=== PATIENT | female | born 1955 | race Caucasian/White ===

== ENCOUNTER 2019-10-15 14:41 | Inpatient (IN) | payer OTHER, MEDICARE ==
[~2019-10-15] VITALS: Ht 158 cm; Wt 75.0 kg
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
[2019-10-15 15:00] VITALS: BP 129/81
[2019-10-15] MEDS ORDERED: ONDANSETRON 4 MG (ZOFRAN) ORAL DISSOLVE TAB PO PRN (15:00)
[2019-10-15] MEDS ORDERED: MELATONIN 3 MG TABLET PO PRN (15:00)
[2019-10-15] MEDS ORDERED: DOCUSATE SODIUM 100 MG (COLACE) CAP PO PRN (15:00)
[2019-10-15] MEDS ORDERED: diphenhydrAMINE 25 MG TAB (BENADRYL) PO PRN (15:00)
[2019-10-15] MEDS ORDERED: CALCIUM CARBONATE 500 MG (TUMS) TAB.CHEW PO PRN (15:00)
[2019-10-15] MEDS ORDERED: FLEET ENEMA ADULT 1 EA BTL PR PRN (15:00)
[2019-10-15] MEDS ORDERED: BISACODYL 10 MG SUPP (DULCOLAX) PR PRN (15:00)
[2019-10-15] MEDS ORDERED: guaiFENesin/CODEINE (ROBITUSSIN AC) 10ML UDC PO PRN (15:00)
[2019-10-15] MEDS ORDERED: ALPRAZolam 0.25 MG (XANAX) TAB PO PRN (15:00)
[2019-10-15] MEDS ORDERED: ACETAMINOPHEN 500 MG TAB (TYLENOL) PO PRN (15:00)
[2019-10-15] MEDS ORDERED: LACTULOSE SYRUP 10GM/15ML (ENULOSE) 30ML UDC PO PRN (15:00)
[2019-10-15] MEDS ORDERED: ACETAMINOPHEN 325 MG TABLET PO PRN (15:15)
[2019-10-15] MEDS ORDERED: RIZA10TA37 PO (15:21)
[2019-10-15] MEDS ORDERED: PARO10TA3 PO (15:21)
[2019-10-15] MEDS ORDERED: OMEP20CA18 PO (15:21)
[2019-10-15] MEDS ORDERED: OXYC5TAB96 PO (15:21)
[2019-10-15] MEDS ORDERED: OXYB5TAB13 PO (15:21)
[2019-10-15] MEDS ORDERED: MONT10TA26 PO (15:21)
[2019-10-15] MEDS ORDERED: ASPI-983 PO (15:21)
[2019-10-15] MEDS ORDERED: CELE-63 PO (15:21)
[2019-10-15] MEDS ORDERED: GABA300C PO (15:21)
[2019-10-15] MEDS ORDERED: SENN-145 PO (15:21)
[2019-10-15] MEDS ORDERED: LISI-556 PO (15:21)
[2019-10-15] MEDS ORDERED: ACET325C7 PO (15:21)
[2019-10-15] MEDS ORDERED: PRAV20TA3 PO (15:21)
[2019-10-15] MEDS ORDERED: RT-ALBUINH IH (15:21)
[2019-10-15] MEDS ORDERED: METO50TA7 PO (15:42)
[2019-10-15] MEDS ORDERED: VALA500T7 PO (15:42)
--- NOTE | 2019-10-15 15:43 | NUR ---
I ENTERED THE MED REC USING THE DISCHARGE ORDERS FROM [facility]- ON THE DISCHARGE ORDER UNDER THE SECTION THAT SAYS "MEDICATION PRIOR TO ADMISSION" IT LISTS METOPROLOL TART 50MG HOWEVER THE PT GETS METOPROLOL ER SUCC 50MG FROM MAIL ORDER [facility]. THERE IS NO MENTION ON THE DISCHARGE ABOUT CHANGING METOPROLOL AND FOR THIS REASON I WILL PUT THE METOPROLOL SUCC ON THE MED REC AFTER THE MEDICATIONS HAVE BEEN CONTINUED I WILL SPEAK WITH THE PT AND UPDATE THE MED REC/NOTES NEEDED FILL DATES FROM [facility] MAIL ORDER: 05-25-2019 OXYBUTYNIN 5MG #180/90DS 05-25-2019 ALBUTEROL HFA #3 05-25-2019 GABAPENTIN 300MG #180/90DS 05-25-2019 RIZATRIPTAN 10MG #36 08-10-2019 LISINOPRIL 5MG #90/90DS 08-10-2019 OMEPRAZOLE 20MG #90/90DS 08-10-2019 PRAVASTATIN 20MG #90/90DS 08-27-2019 CELEBREX 200MG #90/90DS 08-27-2019 METOPROLOL SUCC 50MG #90/90DS 08-27-2019 MONTELUKAST 10MG #90/90DS 08-27-2019 PAROXETINE 10MG #90/90DS 08-27-2019 VALTREX 500MG #36/90DS PT WAS NOT AVAILABLE TO SPEAK WITH WHEN THE MED REC WAS ENTERED- FOR THIS REASON I DO NOT HAVE SPECIFIC DAYS THAT SHE TAKES VALTREX 500MG (THE PRESCRIPTION AND DISCHARGE ORDERS BOTH SAYS 3 TIMES WEEKLY). I WILL FOLLOW UP WITH THE PT TOMORROW AND UPDATE DIRECTIONS Addendum: 10/22/19 at 1450 by NIK KNIGHT CPhT I WAS ABLE TO SPEAK WITH THE PT TODAY TO COMPLETE THE MED REC TO WHAT THE PT WAS TAKING BEFORE [facility] THE FOLLOWING MEDICATIONS HAVE BEEN REMOVED DUE TO PT NOT TAKING BEFORE [facility]: SENNA S OXYCODONE 5MG MEDICATIONS THAT HAVE BEEN ADDED DUE TO PT TAKING PRIOR TO [facility]: TUMS XTRA STENGTH BIOTIN THE FOLLOWING MEDICATIONS HAVE BEEN CHANGED: GABAPENTIN 300MG WAS LISTED 1 CAP BID HOWEVER THE PT TAKES 1 CAP HS MONTELUKAST 10MG, LISINOPRIL 5MG AND PRAVASTATIN 20MG ARE BOTH LISTED 1 TAB DAILY BUT PT TAKES HS OXYBUTYNIN 5MG IS LISTED 1 TAB BID NEEDED FOR SPASMS BUT PT SAYS THIS ISNT PRN PT CLARIFIED THAT VALTREX 500MG DOSES ARE ON MON,WED&SAT
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
[2019-10-15] MEDS ORDERED: RT-ALBUTEROL SULF 2.5 MG/3 ML PRE-MIX VIAL IH PRN (16:15)
[2019-10-15] MEDS ORDERED: NON-FORMULARY MEDICATION 1 EA EA (Rizatriptan Benzoate (Rizatriptan) 10 MG) PO PRN (16:15)
[2019-10-15] MEDS ORDERED: NON-FORMULARY MEDICATION 1 EA EA (Acetaminophen (Tylenol) 650 MG) PO SCH (16:15)
[2019-10-15 16:41] VITALS: BP 129/81
--- NOTE | 2019-10-15 16:42 | NUR ---
DR PHILIP HERE. NO NEW ORDERS
[2019-10-15] MEDS ORDERED: SUMAtriptan 50 MG (IMITREX) TAB PO PRN (16:45)
[2019-10-15 17:18] VITALS: BP 131/80
--- NOTE | 2019-10-15 17:42 | NUR ---
FOLLOW UP APPTS X 4 ENTERED IN [place]. COPIED FROM [facility] INSTRUCTIONS.
--- OUTSIDE RECORDS SUMMARY | 2019-10-15 17:52 | XMS REPORT | CCD ---
Author Author LUANNE RESENDIZ Organization Unknown Address [address] [place] [address] Care Team Providers Care Wood Finisher Apprentice Name Role Phone VAUGHN HERNANDEZ, JOSE Mendoza Attphys DELFINA PHYS, KHANG ER Prisurg S., JERICHO Rivers NASST S., ELAN NASST J., LAYNE NASST F., GRAY NASST B., KATHRYN NASST S., KELI NASST K., GAUTAM NASST S., JONATHAN Harkins NASST R., ROVERTO NASST F., DEEPAK NASST Allergies Allergy Code Allergy Type Reaction Status No Known Drug Allergies 0 Drug allergy Active Active Medications Medication Code Dose Units Frequency Rou te Modification Start Date/Time Outpatient lab 0 1 DRAW 04/13/2016 11:59 Prescription Detail Outpatient CBC, CRP & SED RA TE drawn on Apr- fax results to [phone]: LEFT SEPTIC ANKLE Keflex 500MG Oral Capsule 514765 1 TABLET FOUR TIMES A DAY BY MOUTH 04/13/2016 11:56 Prescription Detail 1 TABLET BY MOUTH FOUR TIME S A DAY CeleBREX 200MG Oral Capsule 687530 200 MILLIGR AMS TWO TIMES A DAY ORAL 04/13/2016 11:55 Prescription Detail 200 MILLIGRAMS ORAL TWO PORTIA ES A DAY Glucosamine/MSM Complex Oral Tablet [id number] 1 EACH DAILY ORAL 04/13/2016 11:55 Prescription Detail 1 EACH ORAL DAILY Centralia 5MG-325MG Oral Tablet 851317 1 TABLET NEEDED EVERY 4 HR BY MOUTH FOR PAIN 04/13/2016 11:55 Prescription Detail TAKE 1 TABLET BY MOUTH N EEDED EVERY 4 HR FOR PAIN Vitamin Oral Tablet 24068213580 1 E ACH DAILY ORAL 04/13/2016 11:55 Prescription Detail 1 EACH ORAL DAILY Tums 500MG Oral Tablet, Chewable [id number] 500 MILLIGRAMS DAILY ORAL 04/13/2016 11:55 Prescription Detail 500 MILLIGRAMS ORAL DAILY Biotin 300 MCG Oral Tablet 984024 1 TABLET DAILY BY MOUTH 04/13/2016 11:54 Prescription Detail 1 TABLET BY MOUTH DAILY Metoprolol Tartrate 50MG Oral Tablet 037633 50 MILLIGRAMS DAILY BY MOUTH 04/13/2016 11:54 Prescription Detail 50 MILLIGRAMS BY MOUTH TAMANNA Y valACYclovir HCl 500MG Oral Tablet 318212 500 MILLIGRAMS MON, SAT, FRI BY MOUTH 04/13/2016 1 1:54 Prescription Detail 500 MILLIGRAMS BY MOUTH MON , SAT, SAT Aspirin 325MG Oral Tablet, Enteric Coated 653173 325 MILLIGRAMS TWO TIMES A DAY BY MOUTH 11:53 Prescription Detail 325 MILLIGRAMS BY MOUTH TWO TIMES A DAY Gabapentin 400MG Oral Capsule 284316 400 MARIELY GRAMS THREE TIMES A DAY BY MOUTH 04/13/2016 11:53 Prescription Detail 400 MILLIGRAMS BY MOUTH THR EE TIMES A DAY Lisinopril 5MG Oral Tablet 637190 5 MILLIGRA MS DAILY BY MOUTH 04/13/2016 11:53 Prescription Detail 5 MILLIGRAMS BY MOUTH DAILY Premarin 0.625MG Oral Tablet 808490 1.25 MILLIG CHELSIE MON, SAT, SAT BY MOUTH 04/13/2016 11:53 Prescription Detail 1.25 MILLIGRAMS BY MOUTH MO N, SAT, FRI Acetaminophen 325MG Oral Tablet 233417 650 MIL LIGRAMS NEEDED EVERY 4 HR BY MOUTH 04/13/2016 11:52 Prescription Detail 650 MILLIGRAMS BY MOUTH NEEDED EVERY 4 HR Problems Problem Code Start Date Resolved Date Sta s Septic arthritis 86381946 04/11/2016 Active Osteomyelitis 68170238 04/11/2016 Ac tive Procedures Procedure Code Procedure Type Date Drainage of Left Ankle Joint, Percutaneous Approach, D iagnostic [id number] ICD-10 PCS 04/11/2016 PT THERAPEUTIC EXERCISES [address] 04/13/2016 MRI LOWER EXTREMITY ANY JOINT W/WO CONTR 871213619 S NOMED CT 04/12/2016 SED RATE 507704666 SNOMED CT 04/13/2016 C REACTIVE PROTEIN 11078773 SNOMED CT 017 CBC W/ AUTO DIFF (RFLX MAN DIFF IF IND) 0693237 SN OMED CT 04/13/2016 BASIC METABOLIC PANEL 601600923 SNOMED CT 09/2016 BASIC METABOLIC PANEL 816636770 SNOMED CT 08/2016 CBC W/ AUTO DIFF (RFLX MAN DIFF IF IND) 0699955 SN OMED CT 04/12/2016 VANCOMYCIN TROUGH 228775589 SNOMED CT 04/13/19 [address] 04/12/2016 CRYSTAL EXAMINATION 529818466 SNOMED CT 2016 CULTURE WOUND 749250515 SNOMED CT 04/11/2016 CELL COUNT MISC FLUID 25202683 SNOMED CT 07/2016 SED RATE 970313896 SNOMED CT 04/11/2016 C REACTIVE PROTEIN 59558086 SNOMED CT 017 COMPREHENSIVE METABOLIC PANEL 697292955 SNOMED CT 04/11/2016 CBC W/ AUTO DIFF (RFLX MAN DIFF IF IND) 9086803 SN OMED CT 04/11/2016 PT THERAPEUTIC EXERCISES [address] 04/12/2016 PT GAIT TRAINING/STAIRS EA 15 MIN 96835364 SNOMED C T 04/12/2016 PT THERAPEUTIC EXERCISES [address] 04/12/2016 PT GAIT TRAINING/STAIRS EA 15 MIN 94205753 SNOMED C T 04/12/2016 PT EVALUATION; LOW 130620300 SNOMED CT 017 ^CULT ANAEROBIC 511757398 SNOMED CT 04/11/2016 ^CBC W/AUTO DIFF 8810632 SNOMED CT 7 ^CBC W/AUTO DIFF 0131366 SNOMED CT 7 ^CBC W/AUTO DIFF 8126720 SNOMED CT 7 Results BASIC METABOLIC PANEL - Collect Date/Portia e: 04/13/2016 07:30 Test Name Code Test Result Test Units Fernanda t Ref Range GLUCOSE 2345-7 99 MG/DL L=70 H=1 00 SODIUM 2951-2 141 MEQ/L L=135 H=14 8 POTASSIUM 2823-3 4.6 MEQ/L L=3.5 H =5.3 CHLORIDE 2075-0 108 MEQ/L L=96 H= 110 CO2 2028-9 24 MEQ/L L=22 H=29 BUN 3094-0 18 MG/DL L=8 H=22 CREATININE 2160-0 1.1 MG/DL L=0.6 H=1.6 CALCIUM 16744-7 9.1 MG/DL L=8.2 H= 10.6 AGE 67[birth year]-3 60 yrs GFR NonAA 01813-1 50 GFR AA 65819-1 61 eGFR 32514-4 50 mL/min/1.7 eGFR AA* 18904-3 >60 N/A BASIC METABOLIC PANEL - Collect Date/Portia e: 04/12/2016 06:15 Test Name Code Test Result Test Units Fernanda t Ref Range GLUCOSE 2345-7 100 MG/DL L=70 H=1 00 SODIUM 2951-2 141 MEQ/L L=135 H=14 8 POTASSIUM 2823-3 4.3 MEQ/L L=3.5 H =5.3 CHLORIDE 2075-0 107 MEQ/L L=96 H= 110 CO2 2028-9 24 MEQ/L L=22 H=29 BUN 3094-0 19 MG/DL L=8 H=22 CREATININE 2160-0 1.0 MG/DL L=0.6 H=1.6 CALCIUM 54323-5 9.0 MG/DL L=8.2 H= 10.6 AGE 36084-8 60 yrs GFR NonAA 11986-4 56 GFR AA 02882-4 68 eGFR 26625-5 56 mL/min/1.7 eGFR AA* 54054-5 >60 N/A COMPREHENSIVE METABOLIC PANEL - Collect Date/Time: 04/11/2016 15:50 Test Name Code Test Result Test Units Fernanda t Ref Range GLUCOSE 2345-7 104 MG/DL L=70 H=1 00 SODIUM 2951-2 140 MEQ/L L=135 H=14 8 POTASSIUM 2823-3 4.3 MEQ/L L=3.5 H =5.3 CHLORIDE 2075-0 102 MEQ/L L=96 H= 110 CO2 2028-9 28 MEQ/L L=22 H=29 BUN 3094-0 13 MG/DL L=8 H=22 CREATININE 2160-0 1.0 MG/DL L=0.6 H=1.6 SGOT/AST 1920-8 17 IU/L L=10 H= 40 SGPT/ALT 1742-6 15 IU/L L=8 H= 54 ALK PHOS 6768-6 99 IU/L L=35 H= 115 TOTAL PROTEIN 2885-2 7.7 G/DL L=5.5 H=8.5 ALBUMIN 1751-7 3.9 G/DL L=3.1 H=5 .4 TOTAL BILI 1975-2 0.4 MG/DL L=0.0 H=1.5 CALCIUM 02908-4 10.1 MG/DL L=8.2 H= 10.6 AGE 60 yrs GFR NonAA 56 GFR AA 68 eGFR 56 mL/min/1.7 eGFR AA* >60 N/A GENTAMICIN - Collect Date/Time: 04/12/19 17 02:40 Test Name Code Test Result Test Units Fernanda t Ref Range GENTAMICIN 19663-9 3.7 UG/ML VANCOMYCIN TROUGH - Collect Date/Time: 0 04/13/2016 07:30 Test Name Code Test Result Test Units Fernanda t Ref Range VANC TROUGH 4092-3 15.8 UG/ML L=10.0 H=20.0 CBC W/ AUTO DIFF (RFLX MAN DIFF IF IND) - Collect Date/Time: 04/13/2016 07:30 Test Name Code Test Result Test Units Fernanda t Ref Range WBC 62637-2 7.2 TH/CMM L=4.5 H=1 0.8 RBC 789-8 3.88 ML/CMM L=4.20 H=5. 40 HGB 718-7 12.5 G/DL L=12.0 H=16 .0 HCT 4544-3 37.5 % L=37.0 H=47 .0 MCV 66873-8 97 FL L=81 H=9 9 MCH 27397-9 32.2 PG L=27.0 H=3 3.0 MCHC 56664-3 33.3 G/DL L=31.0 H=3 6[place]0 [place] [address]-6 46 FL L=36 H=5 0 [place] [address]-3 12.8 % L=0.0 H=1 4.8 MPV 18351-8 10.4 FL L=9.3 H=1 2.5 PLT 777-3 251 TH/CMM L=130 H=44 0 NRBC# 66547-5 0.00 TH/CMM L=0.00 H=0 .00 NRBC% 33706-4 0.0 /100WBC L=0.0 H= 2.0 %NEUT 79366-0 62.5 % %LYMP 36229-7 22.7 % %MONO 26773-2 9.1 % %EOS 95475-7 4.7 % %BASO 55035-6 0.7 % #NEUT 22996-0 4.53 TH/CMM L=2.10 H=8 .20 #LYMP 04933-8 1.64 TH/CMM L=0.90 H=5 .20 #MONO 53226-1 0.66 TH/CMM L=0.16 H=1 .00 #EOS 47902-7 0.34 TH/CMM L=0.00 H=0 .80 #BASO 09742-8 0.05 TH/CMM L=0.00 H=0 .20 MANUAL DIFF 51967-3 NOT IND N/A CBC W/ AUTO DIFF (RFLX MAN DIFF IF IND) - Collect Date/Time: 04/12/2016 06:15 Test Name Code Test Result Test Units Fernanda t Ref Range WBC 54787-2 6.8 TH/CMM L=4.5 H=1 0.8 RBC 789-8 3.99 ML/CMM L=4.20 H=5. 40 HGB 718-7 12.8 G/DL L=12.0 H=16 .0 HCT 4544-3 38.9 % L=37.0 H=47 .0 MCV 58475-3 98 FL L=81 H=9 9 MCH 61510-0 32.1 PG L=27.0 H=3 3.0 MCHC 38869-6 32.9 G/DL L=31.0 H=3 6.0 [place] [address]-3 46 FL L=36 H=5 0 [place] [address]-7 12.9 % L=0.0 H=1 4.8 MPV 23338-1 10.3 FL L=9.3 H=1 2.5 PLT 777-3 245 TH/CMM L=130 H=44 0 NRBC# 24583-6 0.00 TH/CMM L=0.00 H=0 .00 NRBC% 94919-0 0.0 /100WBC L=0.0 H= 2.0 %NEUT 62804-5 54.9 % %LYMP 93391-1 26.8 % %MONO 60888-0 12.5 % %EOS 53484-7 4.4 % %BASO 62218-7 1.0 % #NEUT 90226-9 3.73 TH/CMM L=2.10 H=8 .20 #LYMP 13980-0 1.82 TH/CMM L=0.90 H=5 .20 #MONO 45534-1 0.85 TH/CMM L=0.16 H=1 .00 #EOS 89454-0 0.30 TH/CMM L=0.00 H=0 .80 #BASO 78654-0 0.07 TH/CMM L=0.00 H=0 .20 MANUAL DIFF 28509-8 NOT IND N/A CBC W/ AUTO DIFF (RFLX MAN DIFF IF IND) - Collect Date/Time: 04/11/2016 15:50 Test Name Code Test Result Test Units Fernanda t Ref Range WBC 09073-7 11.0 TH/CMM L=4.5 H=1 0.8 RBC 789-8 4.16 ML/CMM L=4.20 H=5. 40 HGB 718-7 13.6 G/DL L=12.0 H=16 .0 HCT 4544-3 40.8 % L=37.0 H=47 .0 MCV 98 FL L=81 H=99 MCH 32.7 PG L=27.0 H=33 .0 MCHC 33.3 G/DL L=31.0 H=36 .0 RDW SD 46 FL L=36 H=50 RDW CV 13.0 % L=0.0 H=14 .8 MPV 10.1 FL L=9.3 H=12 .5 PLT 777-3 272 TH/CMM L=130 H=44 0 NRBC# 0.00 TH/CMM L=0.00 H=0. 00 NRBC% 0.0 /100WBC L=0.0 H=2 .0 %NEUT 57.3 % %LYMP 28.6 % %MONO 11.5 % %EOS 1.5 % %BASO 0.7 % #NEUT 6.30 TH/CMM L=2.10 H=8. 20 #LYMP 3.15 TH/CMM L=0.90 H=5. 20 #MONO 1.26 TH/CMM L=0.16 H=1. 00 #EOS 0.17 TH/CMM L=0.00 H=0. 80 #BASO 0.08 TH/CMM L=0.00 H=0. 20 MANUAL DIFF NOT IND N/A SED RATE - Collect Date/Time: 04/13/2016 07:30 Test Name Code Test Result Test Units Fernanda t Ref Range SEDRATE 4537-7 35 MM/HR L=0 H=3 0 SED RATE - Collect Date/Time: 04/11/2016 15:50 Test Name Code Test Result Test Units Fernanda t Ref Range SEDRATE 4537-7 39 MM/HR L=0 H=3 0 C REACTIVE PROTEIN - Collect Date/Time: 04/13/2016 07:30 Test Name Code Test Result Test Units Fernanda t Ref Range C REACTIVE PROTEIN 1988-5 5.1 MG/DL L=0 .0 H=1.0 C REACTIVE PROTEIN - Collect Date/Time: 04/11/2016 15:50 Test Name Code Test Result Test Units Fernanda t Ref Range C REACTIVE PROTEIN 1988-5 13.4 MG/DL L=0 .0 H=1.0 Function Status Unknown or Not Available. History of Immunizations Immunization Code Date influenza, unspecified formulation 88 01/07/2016 Plan of Treatment Unknown or Not Available. Social History Smoking Status Code Start Date End Date Never smoker [id number] Vital Signs Vital Sign Value Unit Date/Time Recent/I nitial? Weight Measured 168.2 [lb_av] 04/11/2016 20:25 Initial VS Height 62 [in_i] 04/11/2016 20:25 Initi al VS BMI (Body Mass Index) 30.76 kg/m2 04/11/2016 20 :25 Initial VS BSA (Body Surface Area) 1.83 m2 04/11/2016 20:25 Initial VS BP Systolic 103 mm[Hg] 04/11/2016 20:25 Initial VS BP Diastolic 63 mm[Hg] 04/11/2016 20:25 Initial VS Respiratory Rate 18 /min 04/11/2016 20:25 Initial VS Heart Rate 97 /min 04/11/2016 20:25 I nitial VS O2 % BldC Oximetry 97 % 04/11/2016 20:25 Initial VS Body Temperature 98.5 [degF] 04/11/2016 20:25 Initial VS BP Systolic 129 mm[Hg] 04/13/2016 11:45 Most Recent VS BP Diastolic 66 mm[Hg] 04/13/2016 11:45 Most Recent VS Respiratory Rate 20 /min 04/13/2016 11:45 Most Recent VS Heart Rate 70 /min 04/13/2016 11:45 M ost Recent VS O2 % BldC Oximetry 100 % 04/13/2016 11:45 Most Recent VS Body Temperature 97.4 [degF] 04/13/2016 11:45 Most Recent VS Function Status Unknown or Not Available. Goals Unknown or Not Available. ASSESSMENTS Unknown or Not Available. Health Concerns Section Unknown or Not Available.
--- OUTSIDE RECORDS SUMMARY | 2019-10-15 17:52 | XMS REPORT ---
Author Author Megan Ontiveros Organization [employer] Address Unknown Phone Unavailable Care Team Providers Care Director Of Enterprise Strategy Name Role Phone Odell Ontiveros CP Unavailable Allergies No Known Allergies Problems Problem Type Condition ICD-9 Code Onset Dates Condition Statu s Problem Nonallopathic lesion of pelvic region, not elsewhere c lassified 739.5 Active Problem Nonallopathic lesion of lumbar region, not elsewhere c lassified 739.3 Active Problem Nonallopathic lesion of sacral region, not elsewhere c lassified 739.4 Active Problem Special screening for malignant neoplasms, colon V76.5 1 Active Problem Other screening mammogram V76.12 Ac tive Problem Nonallopathic lesion of rib cage, not elsewhere classi fied 739.8 Active Problem Nonallopathic lesion of thoracic region, not els ewhere classified 739.2 Active Problem Nonallopathic lesion of cervical region, not els ewhere classified 739.1 Active Problem Screening for lipoid disorders V77.91 Active Problem Lumbago 724.2 Active Problem Urinary tract infection, site not specified 599.0 Active Problem Unspecified essential hypertension 401.9 Active Problem Acute sinusitis, unspecified 461.9 Active Problem Spasm of muscle 728.85 Active Medications No Known Medications Results No Known Results Summary Purpose [employer] Submission
--- OUTSIDE RECORDS SUMMARY | 2019-10-15 17:52 | XMS REPORT ---
Author Megan Dunbar Organization [employer] Address Unknown Phone Unavailable Care Team Providers Care Science Job Titles Name Role Phone Odell Ontiveros CP Unavailable Allergies, Adverse Reactions, Alerts Substance Reaction Event Type N.K.D.A. 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 Active Problem Nonallopathic lesion of pelvic region, not elsewhere c lassified 739.5 Active Assessment Unspecified essential hypertension 401.9 Active Problem Nonallopathic lesion of sacral region, not elsewhere c lassified 739.4 Active Assessment Other seborrheic keratosis 702.19 A ctive Problem Nonallopathic lesion of lumbar region, not elsewhere c lassified 739.3 Active Problem Nonallopathic lesion of thoracic region, not els ewhere classified 739.2 Active Problem Nonallopathic lesion of cervical region, not els ewhere classified 739.1 Active Problem Other seborrheic keratosis 702.19 A ctive Problem Nonallopathic lesion of rib cage, not elsewhere classi fied 739.8 Active Assessment Nonallopathic lesion of sacral region, n ot elsewhere classified 739.4 Active Assessment Nonallopathic lesion of pelvic region, n ot elsewhere classified 739.5 Active Problem Other general medical examination for administrative p urposes V70.3 Active Assessment Spasm of muscle 728.85 Active Problem Screening for lipoid disorders V77.91 Active Problem Lumbago 724.2 Active Problem Special screening for malignant neoplasms, colon V76.5 1 Active Problem Other screening mammogram V76.12 Ac tive Assessment Lumbago 724.2 Active Assessment Other general medical examination for administra tive purposes V70.3 Active Assessment Nonallopathic lesion of lumbar region, n ot elsewhere classified 739.3 Active Assessment Nonallopathic lesion of cervical region, not elsewhere classified 739.1 Active Problem Acute sinusitis, unspecified 461.9 Active Problem Spasm of muscle 728.85 Active Problem Urinary tract infection, site not specified 599.0 Active Problem Unspecified essential hypertension 401.9 Active Medications Medication Code System Code Instructions Start Date End Date Status Dosage Robaxin-750 [facility] [address]-97 750 MG Orally every 8 hrs 1 tablet Celebrex [facility] [address]-35 200 MG Orally Once a day Dec 16, 2013 1 capsule Gabapentin [facility] [address]-64 300 MG Orally Four times a day 1 capsule Omeprazole [facility] [address]-28 20 MG Orally Once a day 1 capsule [place] [facility] [address]-23 10-325 MG Orally every 6 hrs 1 tablet as needed Lisinopril [facility] [address]-22 5 MG Orally Once a day 1 tablet Premarin [facility] [address]-00 1.25 MG Orally Once a day 1 tablet Toprol XL [facility] [address]-87 50 MG Orally Once a day 1 tablet Procedures Procedure Coding System Code Date PRESCRIP NOT GEN AT ENCOUNTE CPT-4 G8445 August 25, 2014 PAIN ASSESSMENT DOCUMENT CPT-4 G8440 August 25, 2014 BP SYS <130 AND GOODE <80 CPT-4 G8476 August 25, 2014 DOC MEDS VERIFIED W/PT OR RE CPT-4 G8427 August 25, 2014 FLU VACCINE NOT SCREEN CPT-4 G8424 August 25, 2 015 TX PLAN DEVELOP & DOCUMENT CPT-4 G8437 August 072014 CLIN DEPRESSION SCREEN NOT D CPT-4 G8432 August 25, 2014 DOC PAIN ASSESS NO DOC F/U PLAN RNS CPT-4 G8509 August 25, 2014 MOST RECENT SYSTOLIC BP <140 MM HG CPT-4 G8588 August 25, 2014 OMT 5-6 BODY REGIONS CPT-4 85700 August 25, 201 5 MOST RECENT DIASTOLIC BP <90 MM HG CPT-4 G8590 August 25, 2014 BMI>=30OR<22 ORESTES NO FOLLOWUP CPT-4 G8419 August 25, 2014 Office Visit, Est Pt., Level 4 CPT-4 20102 M 2014 Vital Signs Date/Time: August 25, 2014 BMI 31.13 Index Pain Scale 8/10 1-10 Weight 170.2 lbs Height 62 in Respiratory Rate 20 /min Temperature 97.7 F Cardiac Monitoring Heart Rate 66 /min Oximetry 97 % Blood Pressure Diastolic 76 mm Hg Blood Pressure Systolic 124 mm Hg Results No Known Results Summary Purpose [employer] Submission
--- OUTSIDE RECORDS SUMMARY | 2019-10-15 17:53 | XMS REPORT ---
Author Author Megan Charles Organization [facility] Address [address] [place], [place] [id number] Care Team Providers Care Quality System Manager Name Role Phone Elicia Charles PCP Unavailable Allergies and Adverse Reactions Name Reaction Notes No known drug allergy Plan of Treatment Not available. Medications Active Name Start Date Estimated Completion Date SIG Co mments metoprolol succinate 50 mg oral tablet extended release 24 hr take 1 tablet (50 mg) by oral route once daily gabapentin 300 mg oral capsule t sam 1 capsule (300 mg) by oral route 4 times per day lisinopril 5 mg oral tablet take 1 tablet (5 mg) by oral route once daily omeprazole 20 mg oral capsule,delayed release(DR/EC) take 1 capsule (20 mg) by oral route once daily before a meal Premarin 1.25 mg oral tablet marie e 1 tablet (1.25 mg) by oral route once daily Maxalt 10 mg oral tablet take 1 to 2 tablet by oral route once, may repeat at 2 hour intervals; do not exceed 30 mg in 24 hours biotin oral oral lisinopril 5 mg oral tablet 02/02/2016 TAKE 1 TABLET BY MOUTH DAILY. metoprolol succinate 50 mg oral tablet extended release 24 hr take 1 tablet by mouth daily. Once a day oral valacyclovir 500 mg oral tablet 02/02/2016 TAKE 1 TABLET BY MOUTH 3 TIMES A WEEK. gabapentin 300 mg oral capsule 02/02/2016 T SAM 1 CAPSULE BY MOUTH FOUR TIMES DAILY omeprazole 20 mg oral capsule,delayed release(DR/EC) 02/02/2016 1 capsule Once a day Orally rizatriptan 10 mg oral tablet 03/05/2016 1 TABLET AT ONSET OF HEADACHE & REPEAT 2 HRS LATER IF NEEDED. MAX2/DAY celecoxib 200 mg oral capsule 03/06/2016 TA KE 1 CAPSULE BY MOUTH 2 TIMES A DAY. omeprazole 20 mg oral capsule,delayed release(DR/EC) 08/16/2016 TAKE 1 CAPSULE BY MOUTH EVERY DAY metoprolol succinate 50 mg oral tablet extended release 24 hr 02/2017 TAKE 1 TABLET BY MOUTH EVERY DAY gabapentin 300 mg oral capsule 09/18/2016 T SAM 1 CAPSULE BY MOUTH FOUR TIMES DAILY lisinopril 5 mg oral tablet 09/18/2016 TAKE 1 TABLET BY MOUTH DAILY. metoprolol succinate 50 mg oral tablet extended release 24 hr TAKE 1 TABLET BY MOUTH EVERY DAY celecoxib 200 mg oral capsule 10/27/2016 TAKE 1 CAPS ULE BY MOUTH TWICE DAILY Macrobid 100 mg oral capsule 12/20/2016 marie e 1 capsule (100 mg) by oral route 2 times per day with food for 7 days amoxicillin 500 mg oral tablet 12/28/2016 T sam one tablet by mouth every 8 hours for 7 days Name Start Date Expiration Date SIG Comments Macrobid 100 mg oral capsule 05/21/2016 05/28/2016 marie e 1 capsule (100 mg) by oral route 2 times per day with food for 7 days Vesicare 10 mg oral tablet 08/20/2016 12/18/2016 take 1 tablet (10 mg) by oral route once daily for 30 days paroxetine HCl 10 mg oral tablet 08/25/2016 12/23/2016 take 1 tablet (10 mg) by oral route once daily for 30 days pravastatin 20 mg oral tablet 08/25/2016 12/23/2016 ta ke 1 tablet (20 mg) by oral route once daily at bedtime for 30 days Discontinued Name Start Date Discontinued Date SIG Comments Premarin 1.25 mg oral tablet 02/02/2016 08/25/2016 MARIE E 1 TABLET BY MOUTH DAILY FOR HORMONE REPLACEMENT THERAPY Celebrex 200 mg oral capsule 03/06/2016 03/08/2016 marie e 1 capsule (200 mg) by oral route once daily for 30 days Problem List Description Status Onset HTN (hypertension) Active 01/06/2016 Migraines Active 01/06/2016 Neuropathy Active 01/06/2016 Vital Signs Date Time BP-Sys(mm[Hg] BP-Dayami(mm[Hg]) HR(bpm) RR(rpm) Temp WT HT HC BMI BSA BMI Percentile O2 Sat(%) 12/20/2016 4:55:00 PM 156 mmHg 98 mmHg 78 bpm 20 rpm 98.3 F 174 lbs 62.5 in 31.32 kg/m2 1.87 m2 98 % 08/20/2016 1:58:00 PM 132 mmHg 82 mmHg 70 bpm 16 rpm 97.2 F 172.25 lbs 62.5 in 31.0026 kg/m 1.8562 m 98 % 05/21/2016 10:12:00 AM 118 mmHg 72 mmHg 72 bpm 18 rpm 98.2 F 172 lbs 62.5 i n 30.96 kg/m2 1.85 m2 99 % 01/03/2016 5:23:00 PM 120 mmHg 79 mmHg 64 bpm 18 rpm 96.7 F 167.2 lbs 62.5 in 30.0936 kg/m 1.8288 m 97 % Social History Name Description Comments Tobacco Never smoker History of Procedures Date Ordered Description Order Status 02/03/2016 12:00 AM COMPREHEN METABOLIC PANEL Reviewed 02/03/2016 12:00 AM COMPLETE CBC W/AUTO DIFF WBC Reviewed 02/03/2016 12:00 AM LIPID PANEL Reviewed 04/16/2016 12:00 AM ROUTINE VENIPUNCTURE Reviewed 04/16/2016 12:00 AM COMPLETE CBC W/AUTO DIFF WBC Returned 04/16/2016 12:00 AM C-REACTIVE PROTEIN Returned 04/16/2016 12:00 AM RBC SED RATE AUTOMATED Returned 05/21/2016 10:27 AM URINALYSIS AUTO W/O SCOPE Reviewed 05/21/2016 12:00 AM URINE CULTURE/COLONY COUNT Reviewed 08/20/2016 12:00 AM COMPREHEN METABOLIC PANEL Reviewed 08/20/2016 12:00 AM LIPID PANEL Reviewed 08/20/2016 12:00 AM ROUTINE VENIPUNCTURE Reviewed 08/26/2016 12:00 AM MAMMOGRAPHY BILATERAL DX DIGITAL Reviewe d 09/22/2016 12:00 AM MAMMOGRAPHY, UNILATERAL, DX DIGITAL Retu rned 09/22/2016 12:00 AM US BREAST COMP; LT Reviewed 12/20/2016 5:05 PM URINALYSIS AUTO W/O SCOPE Reviewed Results Summary Date and Description Results 05/21/2016 10:27 AM Clarity Ur clear Color Ur lt yellow Glucose Ur-sCnc neg Bilirub Ur Ql Strip neg Ketones Ur Ql Strip neg Sp Gr Ur Qn <=1.005 Hgb Ur Ql Strip neg pH Ur-LsCnc 6.0 Prot Ur Ql Strip neg Urobilinogen Ur-mCnc 0.2 E.U./dL Nitrite Ur Ql Strip neg WBC Est Ur Ql Strip moderate 08/20/2016 2:22 PM GLUCOSE 129.0 mg/dLSODIUM 14 2.0 mmol/LPOTASSIUM 3.90 mmol/LCHLORIDE 107.0 mmol/LCO2 25.0 mmol/LBUN 17.0 mg/dLCREATININE 1.0 mg/dLSGOT/AST 22.0 IU/LSGPT/ALT 18.0 IU/LALK PHOS 87.0 IU/LTOTAL PROTEIN 7.30 g/dLALBUMIN 4.20 g/dLTOTAL BILI 0.40 mg/dLCALCIUM 9.80 mg/dLAGE 61 GFR NonAA 56 GFR AA 68 eGFR 56 eGFR AA* >60 TRIGLYCERIDES 230.0 mg/dLCHOLESTEROL 203.0 mg/dLHDL 49.0 mg/dLTOT CHOL/HDL 4.1 LDL (CALC) 108.0 mg/dL 12/20/2016 5:05 PM Glucose Ur-sCnc neg Bilirub Ur Ql Strip neg Ketones Ur Ql Strip neg Sp Gr Ur Qn 1.015 Hgb Ur Ql Strip trace pH Ur-LsCnc 6.5 Prot Ur Ql Strip neg Urobilinogen Ur-mCnc 0.2 Nitrite Ur Ql Strip positive WBC Est Ur Ql Strip large History Of Immunizations Not available. History of Past Illness Name Date of Onset Comments Hypertension Neuropathy 01/06/2016 compartment syndrome Migraine Genital herpes HTN (hypertension) 01/06/2016 Migraines 01/06/2016 HTN (hypertension) Jan 03 2016 5:33PM Migraines Jan 03 2016 5:33PM Neuropathy Jan 03 2016 5:33PM Obesity (BMI 30-39.9) Jan 03 2016 5:33PM Post-menopausal Jan 03 2016 5:33PM HTN (hypertension) Feb 03 2016 5:41PM Abrasion, left ankle, initial encounter Apr 16 2016 10:37AM Local infection of the skin and subcutaneous tissue, u nspecified Apr 16 2016 10:37AM UTI (urinary tract infection) May 21 2016 10:15AM Essential hypertension Aug 20 2016 2:02PM Migraines Aug 20 2016 2:02PM Neuropathy Aug 20 2016 2:02PM Obesity (BMI 30-39.9) Aug 20 2016 2:02PM Post-menopausal Aug 20 2016 2:02PM Hypertension Aug 20 2016 2:02PM Screening for breast cancer Aug 20 2016 2:02PM Abnormal mammogram Sep 22 2016 8:38AM Acute cystitis without hematuria Dec 20 2016 4:58PM Payers Insurance Name Company Name Plan Name Plan Number Policy Number Fabrizio cy Group Number Start Date [employer] [place] [id number] 2015 History of Encounters Visit Date Visit Type Provider 12/20/2016 Office visit Elicia KOENIG RN 08/20/2016 Office visit Elicia KOENIG RN 05/21/2016 Office visit Elicia KOENIG RN 04/16/2016 Laboratory Xiomara Goel APRN 01/03/2016 Office visit Elicia KOENIG RN
--- OUTSIDE RECORDS SUMMARY | 2019-10-15 17:53 | XMS REPORT ---
Author Megan Dunbar Organization [employer] Address Unknown Phone Unavailable Care Team Providers Care Modeling Teacher Name Role Phone Odell Ontiveros CP Unavailable Allergies, Adverse Reactions, Alerts Substance Reaction Event Type N.K.D.A. Info Not Available Non Drug Allergy Problems Problem Type Condition Code Onset Dates Condition Statu s Problem Acute sinusitis, unspecified 461.9 Active Assessment Spasm of muscle 728.85 Active Problem Spasm of muscle 728.85 Active Assessment Nonallopathic lesion of pelvic region, n ot elsewhere classified 739.5 Active Problem Nonallopathic lesion of pelvic region, not elsewhere c lassified 739.5 Active Problem Nonallopathic lesion of lumbar region, not elsewhere c lassified 739.3 Active Problem Nonallopathic lesion of sacral region, not elsewhere c lassified 739.4 Active Problem Special screening for malignant neoplasms, colon V76.5 1 Active Problem Other screening mammogram V76.12 Ac tive Assessment Nonallopathic lesion of thoracic region, not elsewhere classified 739.2 Active Assessment Nonallopathic lesion of lumbar region, n ot elsewhere classified 739.3 Active Problem Nonallopathic lesion of rib cage, not elsewhere classi fied 739.8 Active Assessment Nonallopathic lesion of sacral region, n ot elsewhere classified 739.4 Active Problem Nonallopathic lesion of thoracic region, not els ewhere classified 739.2 Active Problem Nonallopathic lesion of cervical region, not els ewhere classified 739.1 Active Problem Screening for lipoid disorders V77.91 Active Problem Lumbago 724.2 Active Assessment Lumbago 724.2 Active Assessment Edema 782.3 Active Assessment Nonallopathic lesion of cervical region, not elsewhere classified 739.1 Active Assessment Unspecified essential hypertension 401.9 Active Problem Urinary tract infection, site not specified 599.0 Active Problem Unspecified essential hypertension 401.9 Active Assessment Headache 784.0 Active Assessment Urinary tract infection, site not specified 599.0 Active Medications Medication Code System Code Instructions Start Date End Date Status Dosage Lisinopril [facility] [address]-75 5 MG Orally Once a day 1 tablet Premarin [facility] [address]-66 1.25 MG Orally Once a day 1 tablet [place] [facility] [address]-57 10-325 MG Orally every 6 hrs 1 tablet as needed Gabapentin [facility] [address]-33 300 MG Orally Four times a day 1 capsule Omeprazole [facility] [address]-55 20 MG Orally Once a day 1 capsule Celebrex [facility] [address]-46 200 MG Orally Once a day Dec 16, 2013 1 capsule Toprol XL [facility] [address]-23 50 MG Orally Once a day 1 tablet Robaxin-[address] [facility] [address]-74 750 MG Orally every 8 hrs 1 tablet Bactrim DS [facility] [address]-30 800-160 MG Orally Twice a day F 2014 1 tablet Procedures Procedure Coding System Code Date TX PLAN DEVELOP & DOCUMENT CPT-4 G8437 May CLIN DEPRESSION SCREEN NOT D CPT-4 G8432 May 12, 2014 PAIN ASSESSMENT DOCUMENT CPT-4 G8440 May 12, 2014 PT DID NOT REC PNEUMO VACC CPT-4 G8116 May PT RECEIV INFLUENZA VACC CPT-4 G8108 May 12, 2014 DOC MEDS VERIFIED W/PT OR RE CPT-4 G8427 May 12, 2014 BMI>=30OR<22 ORESTES NO FOLLOWUP CPT-4 G8419 May 12, 2014 PRESCRIPTION BY E-PRESCRIB S CPT-4 G8443 May 12, 2014 TOBACCO NON-USER CPT-4 G8457 May 12, 2014 Office Visit, Est Pt., Level 4 CPT-4 04369 F 2014 DOC PAIN ASSESS NO DOC F/U PLAN RNS CPT-4 G8509 May 12, 2014 AT LEAST 1 RX TRANSMIT ERX SYS CPT-4 G8553 F 2014 OMT 5-6 BODY REGIONS CPT-4 39436 May 12, 201 5 MOST RECENT SYSTOLIC BP <140 MM HG CPT-4 G8588 May 12, 2014 MOST RECENT DIASTOLIC BP <90 MM HG CPT-4 G8590 May 12, 2014 URINALYSIS CPT-4 43665 May 12, 2014 Vital Signs Date/Time: May 12, 2014 BMI 34.20 Index Pain Scale 04/17 1-10 Weight 187 lbs Height 62 in Respiratory Rate 18 /min Temperature 97.3 F Cardiac Monitoring Heart Rate 75 /min Oximetry 96 % Blood Pressure Diastolic 78 mm Hg Blood Pressure Systolic 138 mm Hg Results No Known Results Summary Purpose [employer] Submission
--- OUTSIDE RECORDS SUMMARY | 2019-10-15 17:53 | XMS REPORT ---
Author Megan Dunbar Organization [employer] Address Unknown Phone Unavailable Care Team Providers Care Risk Management Internship Name Role Phone Odell Ontiveros CP Unavailable Allergies, Adverse Reactions, Alerts Substance Reaction Event Type N.K.D.A. Info Not Available Non Drug Allergy Problems Problem Type Condition Code Onset Dates Condition Statu s Assessment Pain in left shoulder M25.512 Active Assessment Essential (primary) hypertension I10 Active Assessment Segmental and somatic dysfunction of pelvic region M99 .05 Active Assessment Contracture of muscle, multiple sites M62.49 Active Assessment Segmental and somatic dysfunction of sacral region M99 .04 Active Assessment Segmental and somatic dysfunction of lumbar region M99 .03 Active Assessment Segmental and somatic dysfunction of thoracic region M 99.02 Active Assessment Segmental and somatic dysfunction of cervical region M 99.01 Active Assessment Low back pain M54.5 Active Problem Nonallopathic lesion of rib cage, not elsewhere classi fied 739.8 Active Problem Urinary tract infection, site not specified 599.0 Active Problem Other seborrheic keratosis 702.19 A ctive Problem Unspecified essential hypertension 401.9 Active Problem Other general medical examination for administrative p urposes V70.3 Active Problem Essential (primary) hypertension I10 Active Problem Pain in left shoulder M25.512 Active Problem Segmental and somatic dysfunction of cervical region M 99.01 Active Problem Segmental and somatic dysfunction of thoracic region M 99.02 Active Problem Nonallopathic lesion of pelvic region, not elsewhere c lassified 739.5 Active Problem Spasm of muscle 728.85 Active Problem Low back pain M54.5 Active Problem Acute sinusitis, unspecified 461.9 Active Problem Segmental and somatic dysfunction of pelvic region M99 .05 Active Problem Contracture of muscle, multiple sites M62.49 Active Problem Segmental and somatic dysfunction of lumbar region M99 .03 Active Problem Segmental and somatic dysfunction of sacral region M99 .04 Active Problem Nonallopathic lesion of cervical region, not els ewhere classified 739.1 Active Problem Nonallopathic lesion of thoracic region, not els ewhere classified 739.2 Active Problem Nonallopathic lesion of sacral region, not elsewhere c lassified 739.4 Active Problem Nonallopathic lesion of lumbar region, not elsewhere c lassified 739.3 Active Problem Other screening mammogram V76.12 Ac tive Problem Special screening for malignant neoplasms, colon V76.5 1 Active Problem Lumbago 724.2 Active Problem Screening for lipoid disorders V77.91 Active Medications Medication Code System Code Instructions Start Date End Date Status Dosage [place] [facility] [address]-09 10-325 MG Orally every 6 hrs 1 tablet as needed Premarin [facility] [address]-09 1.25 MG Orally Once a day 1 tablet Toprol XL [facility] [address]-77 50 MG Orally Once a day 1 tablet Gabapentin [facility] [address]-13 300 MG Orally Four times a day 1 capsule Robaxin-750 [facility] [address]-89 750 MG Orally every 8 hrs 1 tablet Lisinopril [facility] [address]-93 5 MG Orally Once a day 1 tablet Celebrex [facility] [address]-17 200 MG Orally Once a day Dec 16, 2013 1 capsule Omeprazole [facility] [address]-19 20 MG Orally Once a day 1 capsule Procedures Procedure Coding System Code Date TOBACCO NON-USER CPT-4 G8457 May 05, 2015 PRESCRIP NOT GEN AT ENCOUNTE CPT-4 G8445 May 05, 2015 BP SYS>=130 AND/OR GOODE >=80 CPT-4 G8477 May 05, 2015 CLIN DEPRESSION SCREEN NOT D CPT-4 G8432 May 05, 2015 DOC MEDS VERIFIED W/PT OR RE CPT-4 G8427 May 05, 2015 PAIN ASSESSMENT DOCUMENT CPT-4 G8440 May 05, 2015 [place] PLAN DEVELOP & DOCUMENT CPT-4 G8437 Apr 092015 DOC PAIN ASSESS NO DOC F/U PLAN RNS CPT-4 G8509 May 05, 2015 MOST RECENT SYSTOLIC BP <140 MM HG CPT-4 G8588 May 05, 2015 OMT 5-6 BODY REGIONS CPT-4 10010 May 05, 6 MOST RECENT DIASTOLIC BP <90 MM HG CPT-4 G8590 May 05, 2015 BMI >=30 CALCUATE W/FOLLOWUP CPT-4 G8417 May 05, 2015 Office Visit, Est Pt., Level 4 CPT-4 19144 J an 2015 Vital Signs Date/Time: May 05, 2015 BMI 30.47 Index Pain Scale 7/10 1-10 Weight 166.6 lbs Height 62 in Respiratory Rate 18 /min Temperature 97.4 F Cardiac Monitoring Heart Rate 76 /min Oximetry 97 % Blood Pressure Diastolic 86 mm Hg Blood Pressure Systolic 138 mm Hg Results No Known Results Summary Purpose [employer] Submission
--- OUTSIDE RECORDS SUMMARY | 2019-10-15 17:53 | XMS REPORT ---
Author Author Megan Ontiveros Organization [employer] Address Unknown Phone Unavailable Care Team Providers Care Student Accounts Coordinator Name Role Phone Odell Ontiveros CP Unavailable [...] Problem Spasm of muscle 728.85 Active Medications Medication Code System Code Instructions Start Date End Date Status [facility]os[facility] [address]-03 500 MG Orally Twice a day May 26, 2014 1 tablet Results No Known Results Summary Purpose [employer]Works Submission
--- OUTSIDE RECORDS SUMMARY | 2019-10-15 17:53 | XMS REPORT ---
Author Author Megan Goel [facility] Address [address] [place], [place] [address] Care Team Providers Care Dry Cleaner Helper Name Role Phone Xiomara Goel PCP Allergies and Adverse Reactions Name Reaction Notes No known drug allergy Plan of Treatment Planned Activity Comments Planned Date Planned Time Plan/Goal Mammogram, screening, digital with sandy 10/01/2018 1 2:00 AM Medications Active Name Start Date Estimated Completion Date SIG Co mments biotin oral oral hydrocodone-acetaminophen 5-325 mg oral tablet 07/08/2017 take 1 tablet by oral route every 6 hours as needed for pain Aspir-81 81 mg oral tablet,delayed release (DR/EC) take 1 tablet (81 mg) by oral route once daily black cohosh 40 mg oral tablet take 2 tab lets by oral route daily ProAir HFA 90 mcg/actuation inhalation HFA aerosol inhaler 201812/30/2018 inhale 1 - 2 puffs (90 - 180 mcg) by inhalation route every 4-6 hours as needed for 30 days montelukast 10 mg oral tablet 10/01/2018 03/30/2019 ta ke 1 tablet (10 mg) by oral route once daily in the evening for 30 days celecoxib 200 mg oral capsule 10/01/2018 03/30/2019 TA KE 1 CAPSULE BY MOUTH TWICE DAILY FOR 30 DAYS for 30 days gabapentin 300 mg oral capsule 10/01/2018 03/30/2019 T SAM 1 CAPSULE BY MOUTH FOUR TIMES DAILY for 30 days lisinopril 5 mg oral tablet 10/01/2018 03/30/2019 TAKE 1 TABLET BY MOUTH DAILY. metoprolol succinate 50 mg oral tablet extended release 24 h r 10/01/2018 03/30/2019 TAKE 1 TABLET BY MOUTH EVERY DAY omeprazole 20 mg oral capsule,delayed release(DR/EC) 10/01/2018 03/30/2019 TAKE 1 CAPSULE BY MOUTH EVERY DAY oxybutynin chloride 5 mg oral tablet 10/01/2018 03/30/2019 TAKE 1 TABLET (5 MG) BY ORAL ROUTE 2 TIMES PER DAY FOR 30 DAYS for 30 days paroxetine HCl 10 mg oral tablet 10/01/2018 03/30/2019 TAKE 1 TABLET (10 MG) BY ORAL ROUTE ONCE DAILY FOR 30 DAYS for 30 days pravastatin 20 mg oral tablet 10/01/2018 03/30/2019 TA KE 1 TABLET (20 MG) BY ORAL ROUTE ONCE DAILY AT BEDTIME FOR 90 DAYS for 30 days rizatriptan 10 mg oral tablet 10/01/2018 12/30/2018 1 TABLET AT ONSET OF HEADACHE & REPEAT 2 HRS LATER IF NEEDED. MAX2/DAY for 30 days valacyclovir 500 mg oral tablet 10/01/2018 09/26/2019 TAKE 1 TABLET BY MOUTH 3 TIMES A WEEK. for 90 days Name Start Date Expiration Date SIG Comments Macrobid 100 mg oral capsule 05/21/2016 05/28/2016 marie e 1 capsule (100 mg) by oral route 2 times per day with food for 7 days Vesicare 10 mg oral tablet 08/20/2016 12/18/2016 take 1 tablet (10 mg) by oral route once daily for 30 days ciprofloxacin HCl 250 mg oral tablet 07/11/2017 07/18/2017 take 1 tablet (250 mg) by oral route every 12 hours for 7 days prednisone 10 mg oral tablet 07/16/2017 08/06/2017 Take one tab daily pravastatin 20 mg oral tablet 10/11/2017 07/08/2018 TA KE 1 TABLET (20 MG) BY ORAL ROUTE ONCE DAILY AT BEDTIME FOR 90 DAYS Discontinued Name Start Date Discontinued Date SIG Comments Maxalt 10 mg oral tablet 10/01/2018 take 1 to 2 tablet by oral route once, may repeat at 2 hour intervals; do not exceed 30 mg in 24 hours Premarin 1.25 mg oral tablet 02/02/2016 08/25/2016 MARIE E 1 TABLET BY MOUTH DAILY FOR HORMONE REPLACEMENT THERAPY Celebrex 200 mg oral capsule 03/06/2016 03/08/2016 marie e 1 capsule (200 mg) by oral route once daily for 30 days Macrobid 100 mg oral capsule 12/20/2016 03/26/2017 marie e 1 capsule (100 mg) by oral route 2 times per day with food for 7 days amoxicillin 500 mg oral tablet 12/28/2016 03/26/2017 T sam one tablet by mouth every 8 hours for 7 days Problem List Description Status Onset HTN (hypertension) Active 01/06/2016 Migraines Active 01/06/2016 Neuropathy Active 01/06/2016 Vital Signs Date Time BP-Sys(mm[Hg] BP-Dayami(mm[Hg]) HR(bpm) RR(rpm) Temp WT HT HC BMI BSA BMI Percentile O2 Sat(%) 10/01/2018 11:57:00 AM 112 mmHg 68 mmHg 65 bpm 18 rpm 97.7 F 180 lbs 62 in 32.9221 kg/m 1.8899 m 97 % 08/19/2017 10:06:00 AM 114 mmHg 70 mmHg 64 bpm 20 rpm 96.9 F 180 lbs 64 in 30.90 kg/m2 1.92 m2 97 % 07/08/2017 3:58:00 PM 128 mmHg 82 mmHg 98 bpm 22 rpm 97.8 F 174.25 lbs 62.5 in 31.3625 kg/m 1.8669 m 96 % 12/20/2016 4:55:00 PM 156 mmHg 98 mmHg [...] 5:05 PM URINALYSIS AUTO W/O SCOPE Reviewed 07/08/2017 7:09 PM URINALYSIS AUTO W/O SCOPE Reviewed 07/08/2017 12:00 AM COMPLETE CBC W/AUTO DIFF WBC Returned 07/08/2017 12:00 AM ASSAY OF BLOOD/URIC ACID Returned 07/08/2017 12:00 AM ASSAY OF URINE/URIC ACID Returned 07/08/2017 12:00 AM ANTINUCLEAR ANTIBODIES Returned 07/08/2017 12:00 AM RBC SED RATE AUTOMATED Returned 07/08/2017 12:00 AM COMPREHEN METABOLIC PANEL Returned 07/08/2017 12:00 AM CHEST X-RAY 2VW FRONTAL&LATL Returned 07/08/2017 12:00 AM RHEUMATOID FACTOR QUANT Returned 07/08/2017 12:00 AM THER/PROPH/DIAG INJ SC/IM Reviewed 07/08/2017 12:00 AM Toradol 30 Mg Injection Reviewed 07/08/2017 12:00 AM URINE BACTERIA CULTURE Returned 08/19/2017 12:00 AM COMPLETE CBC W/AUTO DIFF WBC Returned 08/19/2017 12:00 AM RBC SED RATE AUTOMATED Returned 10/01/2018 12:00 AM LIPID PANEL Reviewed 10/01/2018 12:00 AM GLYCOSYLATED HEMOGLOBIN TEST Reviewed 10/01/2018 12:00 AM COLLECTION VENOUS BLOOD VENIPUNCTURE Rev iewed 10/01/2018 12:00 AM COMPLETE CBC W/AUTO DIFF WBC Reviewed 10/01/2018 12:00 AM COMPREHEN METABOLIC PANEL Reviewed 10/01/2018 12:00 AM ASSAY OF MAGNESIUM Reviewed 10/01/2018 12:00 AM URNLS DIP STICK/TABLET RGNT AUTO W/O LEN ROSCOPY Reviewed 10/01/2018 12:00 AM RBC SED RATE AUTOMATED Reviewed 10/01/2018 12:00 AM TDAP VACCINE 7 YRS/> IM Reviewed 10/01/2018 12:00 AM PNEUMOCOCCAL VACC 13 SHAWNA IM Reviewed 10/01/2018 12:00 AM THER/PROPH/DIAG INJ SC/IM Reviewed Results Summary Date and Description Results [...] positive WBC Est Ur Ql Strip large 07/08/2017 7:09 PM Glucose Ur-sCnc neg Bilirub Ur Ql neg Ketones Ur Ql Strip neg Sp Gr Ur Qn 1.010 Hgb Ur Ql Strip neg pH Ur-LsCnc 5.5 Prot Ur Ql Strip neg Urobilinogen Ur-mCnc 0.2 Nitrite Ur Ql Strip positive WBC # Ur small 10/01/2018 12:50 PM HGB A1C 5.80 %Est Avg Glucos e 119.8 SEDRATE 17 GLUCOSE 109 SODIUM 142 POTASSIUM 4.3 CHLORIDE 107 CO2 26 BUN 16 CREATININE 1.04 SGOT/AST 19 SGPT/ALT 18 ALK PHOS 125 TOTAL PROTEIN 7.0 ALBUMIN 4.2 TOTAL BILI 0.3 CALCIUM 9.7 AGE 63 GFR NonAA 53 GFR AA 64 eGFR 53 eGFR AA* >60 TRIGLYCERIDES 181 CHOLESTEROL 158 HDL 52 TOT CHOL/HDL 3.0 LDL (CALC) 70 MAGNESIUM 2.3 WBC 7.8 RBC 4.16 HGB 13.7 HCT 41.7 MCV 100 MCH 32.9 MCHC 32.9 RDW SD 49 RDW CV 13.3 MPV 11.5 PLT 279 NRBC# 0.00 NRBC% 0.0 %NEUT 55.7 %LYMP 30.9 %MONO 9.5 %EOS 2.8 %BASO 1.0 #NEUT 4.36 #LYMP 2.42 #MONO 0.74 #EOS 0.22 #BASO 0.08 MANUAL DIFF NOT IND COLOR Light-Yellow CLARITY Clear SPEC GRAV 1.007 pH 6.5 PROTEIN Negative GLUCOSE Normal KETONE Negative BILIRUBIN Negative BLOOD Negative NITRITE Negative LEUK SCREEN Negative Micro Indicated? NOT IND CULT SET UP? NO History Of Immunizations Name Date Admin Mfg Name Mfg Code Trade Name Lot# Route Inj Vis Given Vis Pub CVX Pneumococcal 10/01/2018 Jeuin-Wztqcf-Gouhfgd-Praxijosette WAL PREVNAR 1 3 [id number] Intramuscular Right Deltoid 10/01/2018 04/08/2019 133 Tdap 10/01/2018 GlaxoSmithKline SKB BOOSTRIX [id number] Intramuscular Left Deltoid 10/01/2018 04/08/2019 115 History of Past Illness Name Date of Onset Comments Hypertension Neuropathy 01/06/2016 compartment syndrome 2006 left leg complicate d fracture Migraine Genital herpes HTN (hypertension) 01/06/2016 Migraines [...] cystitis without hematuria Dec 20 2016 4:58PM Persistent cough Jul 08 2017 4:01PM Urinary frequency Jul 08 2017 4:01PM Joint pain Jul 08 2017 4:01PM Body aches Jul 08 2017 4:01PM UTI (urinary tract infection) Jul 08 2017 4:01PM Polymyalgia rheumatica Aug 19 2017 10:08AM Hyperlipidemia Oct 01 2018 12:00PM Cough Oct 01 2018 12:00PM Hyperglycemia Oct 01 2018 12:00PM Encounter for administration of vaccine Oct 01 2018 12:00PM Essential Hypertension Oct 01 2018 12:00PM GERD (gastroesophageal reflux disease) Oct 01 2018 12:00PM Arthralgia Oct 01 2018 12:00PM Encounter for screening mammogram for breast cancer Oct 01 12:00PM Payers Insurance Name Company Name Plan Name Plan Number Policy Number Fabrizio Group Number Start Date [employer]BS [employer] [place] [id number] N/ A [employer] [place] [id number] 2015 History of Encounters Visit Date Visit Type Provider 10/01/2018 Office visit Xiomara Goel APRN 08/19/2017 Office visit Elicia KOENIG RN 07/08/2017 Office visit Elicia KOENIG RN 12/20/2016 Office visit Elicia KOENIG RN 08/20/2016 Office visit Elicia KOENIG RN 05/21/2016 Office visit Elicia KOENIG RN 04/16/2016 Laboratory Xiomara Goel APRN 01/03/2016 Office visit Elicia KOENIG RN
--- OUTSIDE RECORDS SUMMARY | 2019-10-15 17:53 | XMS REPORT ---
Author Author Megan Goel [facility] Address [address] [place], [place] [address] Care Team Providers Care Division Chief Name Role Phone Xiomara Goel PCP Allergies [...] 2 tab lets by oral route daily montelukast 10 mg oral tablet 10/01/2018 03/30/2019 [...] 3 TIMES A WEEK. for 90 days promethazine-codeine 6.25-10 mg/5 mL oral syrup 10/20/2018 10/25/2018 take 5 milliliters by oral route every 4-6 hours as needed, not to exceed 30 mL in 24 hours for 5 days azithromycin 500 mg oral tablet 10/20/2018 10/23/2018 take 1 tablet (500 mg) by oral route once daily for 3 days prednisone 20 mg oral tablet 10/20/2018 10/27/2018 marie e 1 tablet (20 mg) by oral route 2 times per day for 7 days ProAir HFA 90 mcg/actuation inhalation HFA aerosol inhaler 201801/18/2019 inhale 1 - 2 puffs (90 - 180 mcg) by inhalation route every 4-6 hours as needed for 30 days Name Start Date Expiration Date SIG [...] HC BMI BSA BMI Percentile O2 Sat(%) 10/20/2018 5:21:00 PM 108 mmHg 68 mmHg 69 bpm 18 rpm 97.9 F 179.312 lbs 62 in 32.7963 kg/m 1.8863 m 97 % 10/01/2018 11:57:00 AM 112 mmHg 68 mmHg 65 bpm 18 rpm 97.7 F 180 lbs 62 in 32.92 kg/m2 1.89 m2 97 % 08/19/2017 10:06:00 AM 114 mmHg 70 mmHg 64 bpm 20 rpm 96.9 F 180 lbs 64 in 30.8966 kg/m 1.9201 m 97 % 07/08/2017 3:58:00 PM 128 mmHg 82 mmHg 98 bpm 22 rpm 97.8 F 174.25 lbs 62.5 in 31.36 kg/m2 1.87 m2 96 % 12/20/2016 4:55:00 PM 156 mmHg 98 mmHg 78 bpm 20 rpm 98.3 F 174 lbs 62.5 in 31.3175 kg/m 1.8656 m 98 % 08/20/2016 1:58:00 PM 132 mmHg 82 mmHg 70 bpm 16 rpm 97.2 F 172.25 lbs 62.5 in 31.00 kg/m2 1.86 m2 98 % 05/21/2016 10:12:00 AM 118 mmHg 72 mmHg 72 bpm 18 rpm 98.2 F 172 lbs 62.5 i n 30.9576 kg/m 1.8548 m 99 % 01/03/2016 5:23:00 PM 120 mmHg 79 mmHg 64 bpm 18 rpm 96.7 F 167.2 lbs 62.5 in 30.0936 kg/m 1.83 m2 97 % Social History Name Description Comments [...] Vis Given Vis Pub CVX Pneumococcal 10/01/2018 Michael-Williams WAL PREVNAR 1 3 [id number] Intramuscular Right Deltoid 10/01/2018 04/08/2019 133 Tdap 10/01/2018 Waller[employer] SKB BOOSTRIX [id number] Intramuscular Left Deltoid 10/01/2018 [...] mammogram for breast cancer Oct 01 12:00PM Bronchitis, Acute Oct 20 2018 5:24PM Payers Insurance Name Company Name Plan Name Plan Number Policy Number Fabrizio cy Group Number Start Date [employer]BS [employer] [place] [id number] N/ A [employer] [employer] [place] [id number] 2015 History of Encounters Visit Date Visit Type Provider 10/20/2018 Office visit Xiomara Goel APRN 10/01/2018 Office visit Xiomara Goel APRN 08/19/2017 Office visit Elicia KOENIG RN 07/08/2017 Office visit Elicia KOENIG RN 12/20/2016 Office visit Elicia KOENIG RN 08/20/2016 Office visit Elicia KOENIG RN 05/21/2016 Office visit Eliica KOENIG RN 04/16/2016 Laboratory Xiomara Goel APRN 01/03/2016 Office visit Elicia KOENIG RN
--- OUTSIDE RECORDS SUMMARY | 2019-10-15 17:53 | XMS REPORT ---
Author Author Megan Ontiveros Organization [employer] Address Unknown Phone Unavailable Care Team Providers Care Data Governance Analyst Name Role Phone Odell Ontiveros CP Unavailable Allergies No Known Allergies Problems Problem Type Condition Code Onset Dates [...] Instructions Start Date End Date Status Dosage Toprol XL 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
--- OUTSIDE RECORDS SUMMARY | 2019-10-15 17:53 | XMS REPORT ---
Author Author Megan Charles Organization [facility] Address [address] [place], [place] [address] Care Team Providers Care Drill Rig Operator Helper Name Role Phone Elicia Charles PCP Unavailable Allergies and Adverse Reactions Name Reaction Notes No known drug allergy Plan of Treatment Planned Activity Comments Planned Date Planned Time Plan/Goal Urine Culture. 05/21/2016 12:00 AM Medications Active Name Start Date Estimated [...] 02/02/2016 TAKE 1 TABLET BY MOUTH DAILY. Premarin 1.25 mg oral tablet 02/02/2016 MARIE E 1 TABLET BY MOUTH DAILY FOR HORMONE REPLACEMENT THERAPY metoprolol succinate 50 mg oral tablet extended [...] CAPSULE BY MOUTH 2 TIMES A DAY. Macrobid 100 mg oral capsule 05/21/2016 05/28/2016 marie e 1 capsule (100 mg) by oral route 2 times per day with food for 7 days Discontinued Name Start Date Discontinued Date SIG Comments Celebrex 200 mg oral capsule 03/06/2016 03/08/2016 marie e 1 capsule (200 mg) by oral route once daily for 30 days Problem List Description Status Onset HTN (hypertension) Active 01/06/2016 Migraines Active 01/06/2016 Neuropathy Active 01/06/2016 Vital Signs Date Time BP-Sys(mm[Hg] BP-Dayami(mm[Hg]) HR(bpm) RR(rpm) Temp WT HT HC BMI BSA BMI Percentile O2 Sat(%) 05/21/2016 10:12:00 AM 118 mmHg 72 mmHg [...] 10:27 AM URINALYSIS AUTO W/O SCOPE Reviewed Results Summary Data and Description Results 04/16/2016 3:30 PM C REACTIVE PROTEIN 18.0 mg/L WBC 7.3 RBC 4.39 HGB 13.90 g/dLHCT 43.0 %MCV 98.0 fLMCH 31.70 pgMCHC 32.30 g/dLRDW SD 46 RDW CV 12.80 %MPV 11.10 fLPLT 290 NRBC# 0.00 NRBC% 0.0 %NEUT 68.80 %%LYMP 18.40 %%MONO 7.60 %%EOS 3.80 %%BASO 1.10 %#NEUT 5.05 #LYMP 1.35 #MONO 0.56 #EOS 0.28 #BASO 0.08 MANUAL DIFF NOT IND SEDRATE 27.0 mm/hr History Of Immunizations Not available. History of [...] (urinary tract infection) May 21 2016 10:15AM Payers Insurance Name Company Name Plan Name Plan Number Policy Number Fabrizio cy Group Number Start Date BCBS [facility] [id number] 2015 History of Encounters Visit Date Visit Type Provider 05/21/2016 Office visit Elicia KOENIG RN 04/16/2016 Laboratory Xiomara Goel APRN 01/03/2016 Office visit Elicia KOENIG RN
--- OUTSIDE RECORDS SUMMARY | 2019-10-15 17:53 | XMS REPORT ---
Author Author Megan Charles Organization [facility] Address [address] [place], [place] [id number] Care Team Providers Care Able Bodied Seaman Name Role Phone Elicia Charles PCP Unavailable Allergies and Adverse Reactions Name Reaction Notes No known drug allergy Plan of Treatment Not available. Medications Active Name Start Date Estimated Completion Date SIG Co mments metoprolol succinate 50 mg oral tablet extended release 24 hr take 1 tablet (50 mg) by oral route once daily gabapentin 300 mg oral capsule t celeste 1 capsule (300 mg) by oral route 4 times per day Celebrex 200 mg oral capsule marie e 1 capsule (200 mg) by oral route once daily lisinopril 5 mg oral tablet take 1 [...] mg in 24 hours biotin oral oral Problem List Description Status Onset HTN (hypertension) Active 01/06/2016 Migraines Active 01/06/2016 Neuropathy Active 01/06/2016 Vital Signs Date Time BP-Sys(mm[Hg] BP-Dayami(mm[Hg]) HR(bpm) RR(rpm) Temp WT HT HC BMI BSA BMI Percentile O2 Sat(%) 01/03/2016 5:23:00 PM 120 mmHg 79 mmHg 64 bpm 18 rpm 96.7 F 167.2 lbs 62.5 in 30.09 kg/m2 1.83 m2 97 % Social History Name Description Comments Tobacco Never smoker History of Procedures Not available. Results Summary Not available. History Of Immunizations Not available. History of Past Illness Name Date of Onset Comments Hypertension Neuropathy 01/06/2016 compartment syndrome Migraine Genital herpes HTN (hypertension) 01/06/2016 Migraines 01/06/2016 HTN (hypertension) Jan 03 2016 5:33PM Migraines Jan 03 2016 5:33PM Neuropathy Jan 03 2016 5:33PM Obesity (BMI 30-39.9) Jan 03 2016 5:33PM Post-menopausal Jan 03 2016 5:33PM Payers Insurance Name Company Name Plan Name Plan Number Policy Number Fabrizio cy Group [id number] History of Encounters Visit Date Visit Type Provider 01/03/2016 Office visit Elicia KOENIG RN
--- OUTSIDE RECORDS SUMMARY | 2019-10-15 17:53 | XMS REPORT ---
Author Author Megan Charles Organization [facility] Address [address] [place], [place] [phone] Care Team Providers Care Enterprise Engineer Name Role Phone Elicia Charles PCP Allergies and Adverse Reactions Name Reaction Notes No known drug allergy Plan of Treatment Planned Activity Comments Planned Date Planned Time Plan/Goal CBC W/ AUTO DIFF (RFLX MAN DIFF IF IND). 07/08/2017 12:00 AM URIC ACID. 07/08/2017 12:00 AM URIC ACID. 07/08/2017 12:00 AM NICOLAS W/TITER 07/08/2017 12:00 AM SED RATE 07/08/2017 12:00 AM CMP 07/08/2017 12:00 AM Chest PA and Lateral - Main 07/08/2017 12:00 AM RA FACTOR 07/08/2017 12:00 AM Urine culture and sensitivity 07/08/2017 12:00 AM Medications Active Name Start Date Estimated Completion Date SIG Co mments gabapentin 300 mg oral capsule t sam 1 capsule (300 mg) by oral route 4 times per day Premarin 1.25 mg oral tablet marie e 1 tablet (1.25 mg) by oral route once daily Maxalt 10 mg oral tablet take 1 to 2 tablet by oral route once, may repeat at 2 hour intervals; do not exceed 30 mg in 24 hours biotin oral oral gabapentin 300 mg oral capsule 02/02/2016 T SAM 1 CAPSULE BY MOUTH FOUR TIMES DAILY rizatriptan 10 mg oral tablet 03/05/2016 1 TABLET AT ONSET OF HEADACHE & REPEAT 2 HRS LATER IF NEEDED. MAX2/DAY gabapentin 300 mg oral capsule 09/18/2016 T SAM 1 CAPSULE BY MOUTH FOUR TIMES DAILY omeprazole 20 mg oral capsule,delayed release(DR/EC) 02/08/2017 TAKE 1 CAPSULE BY MOUTH EVERY DAY paroxetine HCl 10 mg oral tablet 02/19/2017 take 1 tablet (10 mg) by oral route once daily for 30 days lisinopril 5 mg oral tablet 02/19/2017 TAKE 1 TABLET BY MOUTH DAILY. valacyclovir 500 mg oral tablet 02/20/2017 TAKE 1 TABLET BY MOUTH 3 TIMES A WEEK. celecoxib 200 mg oral capsule 03/26/2017 TA KE 1 CAPSULE BY MOUTH TWICE DAILY for 30 days pravastatin 20 mg oral tablet 05/23/2017 08/21/2017 TA KE 1 TABLET (20 MG) BY ORAL ROUTE ONCE DAILY AT BEDTIME FOR 30 DAYS hydrocodone-acetaminophen 5-325 mg oral tablet 07/08/2017 take 1 tablet by oral route every 6 hours as needed for pain Name Start Date Expiration Date SIG Comments Macrobid 100 mg oral capsule 05/21/2016 05/28/2016 marie e 1 capsule (100 mg) by oral route 2 times per day with food for 7 days Vesicare 10 mg oral tablet 08/20/2016 12/18/2016 take 1 tablet (10 mg) by oral route once daily for 30 days metoprolol succinate 50 mg oral tablet extended release 24 h r 07/05/2017 07/05/2017 TAKE 1 TABLET BY MOUTH EVERY DAY Discontinued Name Start Date Discontinued Date SIG [...] HC BMI BSA BMI Percentile O2 Sat(%) 07/08/2017 3:58:00 PM 128 mmHg 82 mmHg [...] AUTO W/O SCOPE Reviewed 07/08/2017 12:00 AM THER/PROPH/DIAG INJ SC/IM Reviewed 07/08/2017 12:00 AM Toradol 30 Mg Injection Reviewed Results Summary Date and Description Results [...] Ql Strip positive WBC # Ur small History Of Immunizations Not available. History of [...] (urinary tract infection) Jul 08 2017 4:01PM Payers Insurance Name Company Name Plan Name Plan Number Policy Number Fabrizio cy Group Number Start Date BCBS [facility] [place] [id number] N/ A [employer]BS [facility] [facility] [place] [id number] 2015 History of Encounters Visit Date Visit Type Provider 07/08/2017 Office visit Elicia KOENIG RN 12/20/2016 Office visit Elicia KOENIG RN 08/20/2016 Office visit Elicia KOENIG RN 05/21/2016 Office visit Elicia KOENIG RN 04/16/2016 Laboratory Xiomara Goel APRN 01/03/2016 Office visit Elicia KOENIG RN
--- OUTSIDE RECORDS SUMMARY | 2019-10-15 17:54 | XMS REPORT ---
Author Author Megan Charles Organization [facility] Address [address] [place], [place] [phone] Care Team Providers Care Software Recruiter Name Role Phone Elicia Charles PCP Unavailable [...] TAKE 1 TABLET BY MOUTH EVERY DAY Vesicare 10 mg oral tablet 08/20/2016 12/18/2016 [...] once daily at bedtime for 30 days Name Start Date Expiration [...] HC BMI BSA BMI Percentile O2 Sat(%) 08/20/2016 1:58:00 PM 132 mmHg 82 mmHg [...] Reviewed 08/20/2016 12:00 AM COMPREHEN METABOLIC PANEL Returned 08/20/2016 12:00 AM LIPID PANEL Returned 08/20/2016 12:00 AM ROUTINE VENIPUNCTURE Reviewed Results Summary Date and Description Results 04/16/2016 3:30 PM C [...] MANUAL DIFF NOT IND SEDRATE 27.0 mm/hr 05/21/2016 10:27 AM Clarity Ur clear Color [...] mg/dLTOT CHOL/HDL 4.1 LDL (CALC) 108.0 mg/dL History Of Immunizations Not available. History of [...] for breast cancer Aug 20 2016 2:02PM Payers Insurance Name Company Name Plan Name Plan Number Policy Number Fabrizio cy Group Number Start Date BCBS [facility] [id number] 2015 History of Encounters Visit Date Visit Type Provider 08/20/2016 Office visit Elicia KOENIG RN 05/21/2016 Office visit Elicia KOENIG RN 04/16/2016 Laboratory Xiomara Goel APRN 01/03/2016 Office visit Elicia KOENIG RN
--- OUTSIDE RECORDS SUMMARY | 2019-10-15 17:54 | XMS REPORT ---
Author Author Megan Charles Organization [facility] Address [address] [place], [place] [address] Care Team Providers Care Principal Technical Architect Name Role Phone Elicia Charles PCP Allergies and Adverse Reactions Name Reaction Notes No known drug allergy Plan of Treatment Planned Activity Comments Planned Date Planned Time Plan/Goal CBC W/ AUTO DIFF (RFLX MAN DIFF IF IND). 08/19/2017 12:00 AM SED RATE 08/19/2017 12:00 AM Medications Active Name Start Date [...] TAKE 1 CAPSULE BY MOUTH EVERY DAY lisinopril 5 mg oral tablet 02/19/2017 TAKE 1 TABLET BY MOUTH DAILY. celecoxib 200 mg oral capsule 03/26/2017 TA KE 1 CAPSULE BY MOUTH TWICE DAILY for 30 days pravastatin 20 mg oral tablet 05/23/2017 08/21/2017 TA KE 1 TABLET (20 MG) BY ORAL ROUTE ONCE DAILY AT BEDTIME FOR 30 DAYS hydrocodone-acetaminophen 5-325 mg oral tablet 07/08/2017 take 1 tablet by oral route every 6 hours as needed for pain oxybutynin chloride 5 mg oral tablet 07/23/2017 11/20/2017 take 1 tablet (5 mg) by oral route 2 times per day for 30 days paroxetine HCl 10 mg oral tablet 07/31/2017 TAKE 1 TABLET (10 MG) BY ORAL ROUTE ONCE DAILY FOR 30 DAYS valacyclovir 500 mg oral tablet 08/13/2017 TAKE 1 TABLET BY MOUTH 3 TIMES A WEEK. Name Start Date Expiration Date SIG Comments [...] TAKE 1 TABLET BY MOUTH EVERY DAY ciprofloxacin HCl 250 mg oral tablet 07/11/2017 07/18/2017 take 1 tablet (250 mg) by oral route every 12 hours for 7 days prednisone 10 mg oral tablet 07/16/2017 08/06/2017 Take one tab daily Discontinued Name Start Date Discontinued Date SIG [...] HC BMI BSA BMI Percentile O2 Sat(%) 08/19/2017 10:06:00 AM 114 mmHg 70 mmHg [...] 07/08/2017 12:00 AM URINE BACTERIA CULTURE Returned Results Summary Date and Description Results 05/21/2016 [...] 4:01PM Polymyalgia rheumatica Aug 19 2017 10:08AM Payers Insurance Name Company Name Plan Name Plan Number Policy Number Fabrizio cy Group Number Start Date BCBS [facility] [id number] N/ A BCBS [facility] [id number] 2015 History of Encounters Visit Date Visit Type Provider 08/19/2017 Office visit Elicia KOENIG RN 07/08/2017 Office visit Elicia KOENIG RN 12/20/2016 Office visit Elicia KOENIG RN 08/20/2016 Office visit Elicia KOENIG RN 05/21/2016 Office visit Elicia KOENIG RN 04/16/2016 Laboratory Xiomara Goel APRN 01/03/2016 Office visit Elicia KOENIG RN
--- OUTSIDE RECORDS SUMMARY | 2019-10-15 17:54 | XMS REPORT ---
Author Author Megan Charles Organization [facility] Address [address] [place], [place] [phone] Care Team Providers Care System Manager Name Role Phone Elicia Charles [...] once daily at bedtime for 30 days gabapentin 300 mg oral capsule 09/18/2016 T SAM 1 CAPSULE BY MOUTH FOUR TIMES DAILY lisinopril 5 mg oral tablet 09/18/2016 TAKE 1 TABLET BY MOUTH DAILY. metoprolol succinate 50 mg oral tablet extended release 24 hr TAKE 1 TABLET BY MOUTH EVERY DAY celecoxib 200 mg oral capsule 10/27/2016 TAKE 1 CAPS ULE BY MOUTH TWICE DAILY Name Start Date Expiration Date SIG Comments [...] Returned 08/20/2016 12:00 AM ROUTINE VENIPUNCTURE Reviewed 08/26/2016 12:00 AM MAMMOGRAPHY BILATERAL DX DIGITAL Returne d 09/22/2016 12:00 AM MAMMOGRAPHY, UNILATERAL, DX DIGITAL Retu rned 09/22/2016 12:00 AM US BREAST COMP; LT Reviewed Results Summary Date and Description Results [...] 2:02PM Abnormal mammogram Sep 22 2016 8:38AM Payers Insurance Name Company Name Plan Name Plan Number Policy Number Fabrizio cy Group Number [id number] 2015 History of Encounters Visit Date Visit Type Provider 08/20/2016 Office visit Elicia KOENIG RN 05/21/2016 Office visit Elicia KOENIG RN 04/16/2016 Laboratory Xiomara Goel APRN 01/03/2016 Office visit Elicia KOENIG RN
--- OUTSIDE RECORDS SUMMARY | 2019-10-15 17:54 | XMS REPORT ---
Author Author Megan Charles Organization [facility] Address [address] [place], [place] [phone] Care Team Providers Care Manager Life Insurance Name Role Phone Elicia Charles PCP Unavailable Allergies and Adverse Reactions Name Reaction Notes No known drug allergy Plan of Treatment Planned Activity Comments Planned Date Planned Time Plan/Goal COMPREHEN METABOLIC PANEL 02/03/2016 12:00 AM COMPLETE CBC W/AUTO DIFF WBC 02/03/2016 12:00 AM LIPID PANEL 02/03/2016 12:00 AM Medications Active Name Start Date [...] 02/02/2016 1 capsule Once a day Orally Problem List Description Status Onset HTN (hypertension) [...] 5:33PM HTN (hypertension) Feb 03 2016 5:41PM Payers Insurance Name Company Name Plan Name Plan Number Policy Number Fabrizio cy Group Number Start Date [facility] [id number] 2015 History of Encounters Visit Date Visit Type Provider 01/03/2016 Office visit Elicia KOENIG RN
--- OUTSIDE RECORDS SUMMARY | 2019-10-15 17:54 | XMS REPORT ---
Author Author Megan Goel [facility] Address [address] [place], [place] [address] Care Team Providers Care Environmental Technician Name Role Phone Xiomara Goel PCP Unavailable Allergies and Adverse Reactions Name Reaction Notes No known drug allergy Plan of Treatment Planned Activity Comments Planned Date Planned Time Plan/Goal CBC W/ AUTO DIFF (RFLX MAN DIFF IF IND). 04/16/2016 12:00 AM CRP 04/16/2016 12:00 AM SED RATE 04/16/2016 12:00 AM Medications Active Name Start Date [...] CAPSULE BY MOUTH 2 TIMES A DAY. Discontinued Name Start Date Discontinued Date SIG [...] Reviewed 04/16/2016 12:00 AM ROUTINE VENIPUNCTURE Reviewed Results Summary Not available. History Of Immunizations [...] tissue, u nspecified Apr 16 2016 10:37AM Payers Insurance Name Company Name Plan Name Plan Number Policy Number Fabrizio cy Group Number [id number] 2015 History of Encounters Visit Date Visit Type Provider 04/16/2016 Laboratory Xiomara Goel ELECTRICIAN LOCOMOTIVE 01/03/2016 Office visit Elicia KOENIG RN
--- OUTSIDE RECORDS SUMMARY | 2019-10-15 17:54 | XMS REPORT ---
Author Author Megan Charles Organization [facility] Address [address] [place], [place] [address] Care Team Providers Care Journalism Professor Name Role Phone Elicia Charels PCP Allergies and Adverse Reactions Name Reaction [...] Group Number Start Date BCBS [employer] [place] [id number] N/ A BCBS [employer] [place] [id number] 2015 History of Encounters Visit Date Visit Type Provider 07/08/2017 Office visit Elicia KOENIG RN 12/20/2016 Office visit Elicia KOENIG RN 08/20/2016 Office visit Elicia KOENIG RN 05/21/2016 Office visit Elicia KOENIG RN 04/16/2016 Laboratory Xiomara Goel APRN 01/03/2016 Office visit Elicia KOENIG RN
--- OUTSIDE RECORDS SUMMARY | 2019-10-15 17:54 | XMS REPORT ---
Author Author Megan Charles Organization [facility] Address [address] [place], [place] [address] Care Team Providers Care Count Team Clerk Name Role Phone Elicia Charles PCP Unavailable Allergies and Adverse Reactions Name Reaction Notes No known drug allergy Plan of Treatment Planned Activity Comments Planned Date Planned Time Plan/Goal US BREAST COMP; LT 09/22/2016 12:00 AM Medications Active Name Start Date [...] 09/18/2016 TAKE 1 TABLET BY MOUTH DAILY. Name Start Date Expiration Date SIG Comments [...] AM MAMMOGRAPHY BILATERAL DX DIGITAL Returne d Results Summary Date and Description Results 04/16/2016 [...] cy Group Number Start Date BCBS [facility]bs [facility] [id number] 2015 History of Encounters Visit Date Visit Type Provider 08/20/2016 Office visit Elicia KOENIG RN 05/21/2016 Office visit Elicia KOENIG RN 04/16/2016 Laboratory Xiomara Goel APRN 01/03/2016 Office visit Elicia KOENIG RN
--- OUTSIDE RECORDS SUMMARY | 2019-10-15 17:54 | XMS REPORT | Continuity of Care Document ---
Demographics Preferred Language Unknown Marital Status Unknown Amish Affiliation Unknown Race Unknown Ethnic Group Unknown Author Organization Unknown Address Unknown Phone Unavailable Allergies Active Description Code Type Severity Reaction Onset Reported/Identified Relationship to Patient Clinical Status Yes No Known Drug Allergies [id number] N/A N/A Medications There is no data. Problems Date Dx Coded Attending Type Code Diagnosis Diagnosed By 11/15/2016 LEONARDO CHARLES Other Z12.31 ENCNTR SCREEN MAMMOGRAM FOR MALIGNANT NEOPLASM OF [address] 05/14/2017 BRITTANY LEONARDO DOTY Other Z12.31 ENCNTR SCREEN MAMMOGRAM FOR MALIGNANT NEOPLASM OF [address] 05/14/2017 AMANDA CHARLESTHANIA DOTY Other N63 UNSPECIFIED LUMP IN BREAST 05/14/2017 LEONARDO CHARLES Other Z12.31 ENCNTR SCREEN MAMMOGRAM FOR MALIGNANT NEOPLASM OF [address] 05/14/2017 BRITTANYAMANDALEONARDOTHANIA DOTY Other N63 UNSPECIFIED LUMP IN BREAST 06/03/2017 Other R92.2 I NCONCLUSIVE MAMMOGRAM 11/11/2018 BRITTANYAMANDA VILLEGASTHANIA DOTY Other Z12.31 ENCNTR SCREEN MAMMOGRAM FOR MALIGNANT NEOPLASM OF [address] 11/11/2018 AMANDA CHARLESTHANIA DOTY Other N63 UNSPECIFIED LUMP IN BREAST 11/11/2018 Other R92.2 I NCONCLUSIVE MAMMOGRAM 11/26/2018 Other R92.2 I NCONCLUSIVE MAMMOGRAM 08/25/2019 P [id number] Enc ounter for preprocedural laboratory examination 08/25/2019 S Z1159 Enco unter for screening for other viral diseases 08/26/2019 S I10 Essent ial (primary) hypertension 08/26/2019 S K219 Gastr o-esophageal reflux disease without esophagitis 08/26/2019 S K317 Polyp of stomach and duodenum 08/26/2019 S L570 Actin ic keratosis 08/26/2019 P Z1211 Enco unter for screening for malignant neoplasm of colon 08/26/2019 S Z7982 terminal worker (current) use of aspirin 09/24/2019 P [id number] Enc ounter for preprocedural laboratory examination 09/24/2019 S Z1159 Enco unter for screening for other viral diseases 09/25/2019 P G5601 Carp al tunnel syndrome, right upper limb 09/25/2019 S G5621 Lesi on of ulnar nerve, right upper limb Procedures There is no data. Results Test Result Range Antinuclear Antibodies, IFA - 07/08/17 1 6:39 Antinuclear Antibodies, IFA Negative CYTOCHECK COVID-19 - 08/25/19 08:00 CYTOCHECK COVID-19 N/A NRG PATHOLOGY ORDER - 08/28/19 10:56 PATHOLOGY ORDER N/A NRG CBC W/ AUTO DIFF (RFLX MAN DIFF IF IND) - 10/11/19 02:35 WBC 23.2 TH/CMM 4.5-10.8 RBC 3.49 ML/CMM 4.20-5.40 HGB 11.5 G/DL 12.0-16.0 HCT 34.8 % 37.0-47.0 MCV 100 FL 81-99 MCH 33.0 PG 27.0-33.0 MCHC 33.0 G/DL 31.0-36.0 RDW SD 49 FL 36-50 RDW CV 13.7 % 0.0-14.8 MPV 10.2 FL 9.3-12.5 PLT 207 TH/CMM 130-440 %NEUT 85.5 % NRG %LYMP 6.9 % NRG %MONO 5.5 % NRG %EOS 0.6 % NRG %BASO 0.5 % NRG #NEUT 19.80 TH/CMM 2.10-8.20 #LYMP 1.61 TH/CMM 0.90-5.20 #MONO 1.28 TH/CMM 0.16-1.00 #EOS 0.15 TH/CMM 0.00-0.80 #BASO 0.11 TH/CMM 0.00-0.20 CBC W/ AUTO DIFF (RFLX MAN DIFF IF IND) N/A NRG NRBC# 0.00 TH/CMM 0.00-0.00 NRBC% 0.0 /100WBC 0.0-2.0 MANUAL DIFF SEE BELOW NRG SEGS 91 % NRG BANDS 1 % NRG LYMPHS 6 % NRG MONOS 2 % NRG COMPREHENSIVE METABOLIC PANEL - 07/05/20 02:35 COMPREHENSIVE METABOLIC PANEL N/A NRG GLUCOSE 137 MG/DL 70-100 SODIUM 143 MEQ/L 135-148 POTASSIUM 3.6 MEQ/L 3.5-5.3 CHLORIDE 112 MEQ/L 96-110 CO2 20 MEQ/L 22-29 BUN 16 MG/DL 8-22 CREATININE 0.92 MG/DL 0.57-1.11 SGOT/AST 30 IU/L 10-40 SGPT/ALT 21 IU/L 8-54 ALK PHOS 96 IU/L 40-150 TOTAL PROTEIN 6.1 G/DL 5.5-8.5 ALBUMIN 3.5 G/DL 3.1-5.4 TOTAL BILI 0.3 MG/DL 0.0-1.5 CALCIUM 8.6 MG/DL 8.2-10.6 AGE 64 yrs NRG GFR NonAA 61 NRG GFR AA 74 NRG eGFR 61 mL/min/1.7 NRG eGFR AA* >60 mL/min/1.7 NRG Encounters ACCT No. Visit Date/Time Discharge Status Pt. Type Provider Facility Loc./Unit Complaint [id number] 08/26/2019 07:19:00 Document Registration [id number] 08/25/2019 08:00:00 Document Registration [id number] 09/01/2019 13:58:56 09/01/2019 23:59: 59 CLS Outpatient Amauri Wolf [id number] 06/15/2019 15:12:54 06/15/2019 23:59: 59 CLS Outpatient Amauri Wolf [id number] 05/15/2019 09:01:58 05/15/2019 23:59: 59 CLS Outpatient Xiomara Goel [id number] 10/20/2018 17:31:32 10/20/2018 23:59: 59 CLS Outpatient Xiomara Goel [id number] 10/01/2018 12:25:27 10/01/2018 23:59: 59 CLS Outpatient Xiomara Goel [id number] 08/19/2017 11:01:21 08/19/2017 23:59: 59 CLS Outpatient Leonardo Charles [id number] 07/10/2017 12:22:21 07/10/2017 23:59: 59 CLS Outpatient Leonardo Charles [id number] 12/20/2016 17:49:48 12/20/2016 23:59: 59 CLS Outpatient Leonardo Charles [id number] 08/20/2016 17:36:31 08/20/2016 23:59: 59 CLS Outpatient Leonardo Charles [id number] 05/21/2016 11:06:07 05/21/2016 23:59: 59 CLS Outpatient Leonardo Charles [id number] 04/16/2016 09:50:24 04/16/2016 23:59: 59 CLS Outpatient Xiomara Goel [id number] 01/03/2016 19:44:04 01/03/2016 23:59: 59 CLS Outpatient Leonardo Charles [id number] 10/12/2019 14:26:57 Document Registration [id number] 10/11/2019 02:15:29 Document Registration [id number] 10/11/2019 01:43:46 Document Registration [id number] 09/23/2019 15:07:05 Document Registration [id number] 09/02/2019 09:29:23 Document Registration [id number] 08/24/2019 13:06:44 Document Registration [id number] 07/23/2019 16:20:38 Document Registration [id number] 07/23/2019 16:10:55 Document Registration [id number] 06/17/2019 17:19:07 Document Registration [id number] 05/15/2019 09:32:57 Document Registration [id number] 05/15/2019 09:07:08 Document Registration [id number] 05/15/2019 09:02:26 Document Registration [id number] 10/01/2018 17:10:08 Document Registration [id number] 08/19/2017 16:05:18 Document Registration [id number] 07/09/2017 15:15:16 Document Registration [id number] 07/08/2017 16:48:27 Document Registration [id number] 07/12/2017 17:06:00 Document Registration [id number] 11/15/2016 09:32:00 017 23:59:59 CLS Outpatient [facility] JULIA NODULAR DENSITY LT BREAST [id number] 09/17/2016 16:20:00 017 23:59:59 CLS Outpatient [facility] JULIA SCREENING [id number] 11/11/2018 08:07:00 Document Registration [id number] 05/14/2017 10:08:00 Document Registration
--- OUTSIDE RECORDS SUMMARY | 2019-10-15 17:54 | XMS REPORT ---
Author Author Megan Charles Organization [facility] Address [address] [place], [place] [address] Care Team Providers Care Wind Projects Supervisor Name Role Phone Elicia Charles PCP Unavailable [...] neg WBC Est Ur Ql Strip moderate History Of Immunizations Not available. History of [...] Fabrizio cy Group Number Start Date BCBS [facility] [id number] 2015 History of Encounters Visit Date Visit Type Provider 05/21/2016 Office visit Elicia KOENIG RN 04/16/2016 Laboratory Xiomara Goel APRN 01/03/2016 Office visit Elicia KOENIG RN
--- OUTSIDE RECORDS SUMMARY | 2019-10-15 17:54 | XMS REPORT ---
Author Megan Dunbar Organization [employer] Address Unknown Phone Unavailable Care Team Providers Care Home Care Manager Name Role Phone Odell Ontiveros CP Unavailable Allergies, Adverse Reactions, Alerts Substance Reaction Event Type N.K.D.A. Info Not Available Non Drug Allergy Problems Problem Type Condition ICD-9 Code Onset [...] V77.91 Active Problem Lumbago 724.2 Active Assessment Spasm of muscle 728.85 Active Assessment Nonallopathic lesion of rib cage, not elsewhere classi fied 739.8 Active Assessment Unspecified essential hypertension 401.9 Active Problem Urinary tract infection, site not specified 599.0 Active Problem Unspecified essential hypertension 401.9 Active Assessment Nonallopathic lesion of thoracic region, not elsewhere classified 739.2 Active Problem Acute sinusitis, unspecified 461.9 Active Assessment Lumbago 724.2 Active Problem Spasm of muscle 728.85 Active Medications Medication Code System Code Instructions Start Date End Date Status Dosage Celebrex [facility] [address]-46 200 MG Orally Once a day Dec 16, 2013 Active 1 capsule Premarin [facility] [address]-93 1.25 MG Orally Once a day Active 1 tablet Kennard [facility] [address]-02 10-325 MG Orally every 6 hrs Active 1 tablet as needed Toprol XL [facility] [address]-85 50 MG Orally Once a day Active 1 tablet Omeprazole [facility] [address]-45 20 MG Orally Once a day Active 1 capsule Gabapentin [facility] [address]-36 300 MG Orally Four times a day Active 1 capsule Robaxin-750 [facility] [address]-28 750 MG Orally every 8 hrs Active 1 tablet Lisinopril [facility] [address]-48 5 MG Orally Once a day Active 1 tablet Procedures Procedure Coding System Code Date PRESCRIP NOT GEN AT ENCOUNTE CPT-4 G8445 Feb 17, 2014 PAIN ASSESSMENT DOCUMENT CPT-4 G8440 Feb 17, 2014 TOBACCO NON-USER CPT-4 G8457 Feb 17, 2014 DOC MEDS VERIFIED W/PT OR RE CPT-4 G8427 Feb 17, 2014 FLU VACCINE NOT SCREEN CPT-4 G8424 Feb 17, 2 014 TX PLAN DEVELOP & DOCUMENT CPT-4 G8437 Feb 062013 CLIN DEPRESSION SCREEN NOT D CPT-4 G8432 Feb 17, 2014 BP SYS <130 AND GOODE <80 CPT-4 G8476 Feb 17, 2014 PAIN SEV QUANTIFIED PAIN PRES CPT-4 G8512 No v 2013 OMT 1-2 BODY REGIONS CPT-4 01122 Feb 17, 201 4 MOST RECENT SYSTOLIC BP <140 MM HG CPT-4 G8588 Feb 17, 2014 MOST RECENT DIASTOLIC BP <90 MM HG CPT-4 G8590 Feb 17, 2014 BMI<30 AND >=22 CALC & DOCU CPT-4 G8420 Feb 17, 2014 Office Visit, Est Pt., Level 4 CPT-4 38310 N ov 2013 Vital Signs Date/Time: Feb 17, 2014 BMI 35.11 Index Pain Scale 1/10 1-10 Weight 192 lbs Height 62 in Respiratory Rate 20 /min Temperature 97.8 F Cardiac Monitoring Heart Rate 66 /min Oximetry 94 % Blood Pressure Diastolic 74 mm Hg Blood Pressure Systolic 126 mm Hg Results No Known Results Summary Purpose [employer] Submission
--- OUTSIDE RECORDS SUMMARY | 2019-10-15 17:54 | XMS REPORT ---
Author Author Megan Ontiveros Organization [employer] Address Unknown Phone Unavailable Care Team Providers Care Heel Boom Operator Name Role Phone Odell Ontiveros CP Unavailable Allergies No Known Allergies Problems Problem Type Condition ICD-9 Code Onset Dates Condition Statu s Problem Urinary tract infection, site not specified 599.0 Active Problem Acute sinusitis, unspecified 461.9 Active Problem Unspecified essential hypertension 401.9 Active Problem Nonallopathic lesion of thoracic region, not els ewhere classified 739.2 Active Problem Nonallopathic lesion of cervical region, not els ewhere classified 739.1 Active Problem Lumbago 724.2 Active Problem Nonallopathic lesion of pelvic region, not elsewhere c lassified 739.5 Active Problem Spasm of muscle 728.85 Active Problem Nonallopathic lesion of lumbar region, not elsewhere c lassified 739.3 Active Problem Nonallopathic lesion of sacral region, not elsewhere c lassified 739.4 Active Medications Medication Code System Code Instructions Start Date End Date Status Dosage Celebrex MEDISPAN [address]-46 200 MG Orally Once a day Dec 16, 2013 Active 1 capsule Results No Known Results Summary Purpose [employer] Submission
--- OUTSIDE RECORDS SUMMARY | 2019-10-15 17:54 | XMS REPORT ---
Author Author Megan Ontiveros Organization [employer] Address Unknown Phone Unavailable Care Team Providers Care Entertainment Director Name Role Phone Odell Ontiveros CP Unavailable [...]
--- NOTE | 2019-10-15 18:01 | NUR ---
DR PHILIP WITH NEW ORDERS. ENTERED AND RT NOTIFIED. DAUGHTER IS AT BEDSIDE. PATIENT DENIES NEEDS OR C/O AT THSI TIME. CONT TO MONITOR.
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
[2019-10-15] MEDS: ACETAMINOPHEN 325 MG TABLET PO SCH (18:06)
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
[2019-10-15] MEDS: KETOROLAC 30 MG/ML VIAL IVP SCH (18:45)
[2019-10-15] MEDS ORDERED: SODIUM CHLORIDE FLUSH 10 ML IV PRN (18:47)
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
[2019-10-15] MEDS: GABAPENTIN 300 MG (NEURONTIN) CAP PO SCH (20:21)
[2019-10-15] MEDS: ENOXAPARIN 40 MG/0.4 ML (LOVENOX) SYR SC SCH (20:21)
[2019-10-15] MEDS: DOCUSATE SODIUM 100 MG (COLACE) CAP PO SCH (20:22)
[2019-10-15] MEDS: polyethylene glycoL POWDER 17 GM (MIRALAX) PACK PO SCH (20:22)
[2019-10-15] MEDS: SENNA W/DOCUSATE (SENOKOT S) TABLET PO SCH (20:22)
[2019-10-15] MEDS ORDERED: SENNA W/DOCUSATE (SENOKOT S) TABLET PO SCH (21:00)
[2019-10-16] MEDS: ACETAMINOPHEN 325 MG TABLET PO SCH ×4 (00:13→18:06)
[2019-10-16] MEDS: KETOROLAC 30 MG/ML VIAL IVP SCH ×4 (00:13→18:07)
[2019-10-16 05:09] VITALS: BP 139/83
[2019-10-16 05:57] LABS: BASOPHILS # (AUTO) 0.1 10^3/uL (0.0-0.1); BASOPHILS % (AUTO) 1 % (0-10); EOSINOPHILS # (AUTO) 1.1 10^3/uL (0.0-0.3); EOSINOPHILS % (AUTO) 13 % (0-10); HEMATOCRIT 32 % (35-52); HEMOGLOBIN 10.5 G/DL (11.5-16.0); LYMPHOCYTES # (AUTO) 2.2 X 10^3 (1.0-4.0); LYMPHOCYTES % (AUTO) 25 % (12-44); MEAN CORPUSCULAR HEMOGLOBIN 33 PG (25-34); MEAN CORPUSCULAR HGB CONC 33 G/DL (32-36); MEAN CORPUSCULAR VOLUME 100 FL (80-99); MEAN PLATELET VOLUME 10.3 FL (7.4-10.4); MONOCYTES # (AUTO) 0.9 X 10^3 (0.0-1.0); MONOCYTES % (AUTO) 11 % (0-12); NEUTROPHILS # (AUTO) 4.5 X 10^3 (1.8-7.8); NEUTROPHILS % (AUTO) 52 % (42-75); PLATELET COUNT 237 10^3/uL (130-400); RED CELL DISTRIBUTION WIDTH 14.3 % (10.0-14.5); WHITE BLOOD COUNT 8.7 10^3/uL (4.3-11.0)
[2019-10-16 06:26] LABS: ALBUMIN 3.2 GM/DL (3.2-4.5); CHLORIDE 108 MMOL/L (98-107); SODIUM 141 MMOL/L (135-145)
[2019-10-16 06:27] LABS: CALCIUM 8.8 MG/DL (8.5-10.1)
[2019-10-16 06:28] LABS: GLUCOSE 107 MG/DL (70-105)
[2019-10-16 06:30] LABS: BILIRUBIN,TOTAL 0.6 MG/DL (0.1-1.0); CARBON DIOXIDE 22 MMOL/L (21-32)
[2019-10-16 06:32] LABS: ALKALINE PHOSPHATASE 94 U/L (40-136); CREATININE SERUM 0.92 MG/DL (0.60-1.30); GFR ESTIMATED > 60
[2019-10-16 06:33] LABS: BUN/CREATININE RATIO 27
[2019-10-16 06:35] LABS: ALANINE AMINOTRANSFERASE 35 U/L (0-55)
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
[2019-10-16] MEDS ORDERED: CELECOXIB 100 MG (CeleBREX) CAP PO SCH (08:00)
[2019-10-16] MEDS: lisINopril 5 MG (PRINIVIL) TABLET PO SCH (08:29)
[2019-10-16] MEDS: MONTELUKAST 10 MG (SINGULAIR) TAB PO SCH (08:29)
[2019-10-16] MEDS: PANTOPRAZOLE 20 MG TABLET (PROTONIX) PO SCH (08:29)
[2019-10-16] MEDS: ASPIRIN E.C. 81 MG (ECOTRIN) TAB PO SCH (08:30)
[2019-10-16] MEDS: GABAPENTIN 300 MG (NEURONTIN) CAP PO SCH ×2 (08:30→20:29)
[2019-10-16] MEDS: meTOproloL SUCCINATE 50 MG (TOPROL XL) TAB PO SCH (08:30)
[2019-10-16] MEDS: PARoxetine 10 MG (PAXIL) TAB PO SCH (08:30)
[2019-10-16] MEDS: SENNA W/DOCUSATE (SENOKOT S) TABLET PO SCH ×2 (08:33→20:29)
[2019-10-16] MEDS: DOCUSATE SODIUM 100 MG (COLACE) CAP PO SCH ×2 (08:33→20:28)
[2019-10-16] MEDS: polyethylene glycoL POWDER 17 GM (MIRALAX) PACK PO SCH ×2 (08:33→20:29)
[2019-10-16] MEDS ORDERED: NON-FORMULARY MEDICATION 1 EA EA (Pravastatin Sodium 20 MG) PO SCH (09:00)
[2019-10-16] MEDS ORDERED: OMEPRAZOLE 20 MG (PriLOSEC) CAP NON-FORMULARY PO SCH (09:00)
[2019-10-16] MEDS ORDERED: NON-FORMULARY MEDICATION 1 EA EA (Celecoxib 200 MG) PO SCH (09:00)
--- NOTE | 2019-10-16 10:14 | Progress Note-Pre Operative ---
Pre-Operative Progress Note H&P Reviewed The H&P was reviewed, patient examined and no changes noted. Date Seen by Provider: Oct 16, 2019 Time Seen by Provider: : Date H&P Reviewed: Oct 16, 2019 Time H&P Reviewed: : Pre-Operative Diagnosis: respiratory failure, malnutrition, dysphagia LAURA PHILIP MD Oct 16, 2019 10:14
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
--- NOTE | 2019-10-16 11:49 | Physical Therapy Daily Note ---
PT Daily Note-Current Subjective Pt is sitting up in chair upon arrival to room, agreeable to work with therapy at this time. Pain Comment: Pt complains of pain across her shoulder blades, rates at 3/10 Appearance Following session, pt in recliner with BLEs elevated and all needs met. Pt has call light and tray within reach. Mental Status Patient Orientation: Person, Place, Time, Situation Pt has on FREELANCE DESIGNER brace and nathan bandage on R UE. Transfers SCALE: Activities may be completed with or without assistive devices. 0-Wpkgwlkegt-emravys completes the activity by him/herself with no assistance f rom a helper. 5-Set-up or Clean-up Assistance-helper sets up or cleans up; patient completes activity. [place] assists only prior to or following the activity. 4-Supervision or Touching Assistance-helper provides verbal cues and/or touching/steadying and/or contact guard assistance as patient completes activity. Assistance may be provided throughout the activity or intermittently. 3-Partial/Moderate Assistance-helper does LESS THAN HALF the effort. [place] lifts, holds or supports trunk or limbs, but provides less than half the effort. 2-Substantial/Maximal Assistance-helper does MORE THAN HALF the effort. [place] lifts or holds trunk or limbs and provides more than half the effort. 1-Bvlmdzozx-hcmcas does ALL the effort. Patient does none of the effort to complete the activity. Or, the assistance of 2 or more helpers is required for the patient to complete the activity. If activity was not attempted, code reason: 7-Patient Refused. 9-Not Applicable-not attempted and the patient did not perform the activity before the current illness, exacerbation or injury. 10-Not Attempted due to Environmental Limitations-(lack of equipment, weather restraints, etc.). 88-Not Attempted due to Medical Conditions or Safety Concerns. Sit to Stand (QC): 4 Toilet Transfer (QC): 4 Weight Bearing Right Lower Extremity: Right Full Weight Bearing Left Lower Extremity: Left Full Weight Bearing Gait Training Does the Patient Walk?: Yes Distance: 150' x 3 Walk 10 feet (QC): 4 Walk 50 ft with 2 Turns(QC): 4 Walk 150 ft (QC): 4 Gait Assistive Device: Walker Platform Pt with steady, slow gait. CGA for safety, as pt has NBOS and needs cueing for walker mgmt, especially noted with turning corners. Stair Training Stair Training: Handrails/: 2 handrails #of Steps: 12 4 Steps (QC): 3 12 Steps (QC): 3 Stairs: Pattern: Step to Min A needed due to pt inability to look at step on ascent/descent secondary to FREELANCE DESIGNER brace. Pt steady with bilateral handrails and step to pattern Exercises Standing: Hip Abduction, Heel/toe raises, Marching, Mini squats Standing Reps: 20 NuStep Minutes: 7 NuStep Workload: 3 Treatments Pt ambulates to bathroom and requires CGA for toilet transfer, able to complete pericare independent. Pt ambulated to gym and completed 12 steps with bilateral handrails and min A. Pt then completed standing exercises and Nustep before returning to room. Assessment Current Status: Fair Progress Pt continues to have pain with activity in the upper thoracic spine region with seated exercise, states it feels better standing. Pt has noted LE weakness with functional mobility, and requires frequent rest breaks during session. Will continue to progress pt as tolerated. PT Short Term Goals Short Term Goals Time Frame: Oct 23, 2019 Sit to lyin Sit to stand: 4 Walk 150 feet: 4 4 steps: 4 PT Manager Financial Services Goals Manager Financial Services Goals PT Manager Financial Services Goals Time Frame: Nov 04, 2019 Roll Left & Right (QC): 6 Sit to Lying (QC): 6 Lying-Sitting on Side/Bed(QC): 6 Sit to Stand (QC): 6 Chair/Ioq-mh-Kcobl Xfer(QC): 6 Toilet Transfer (QC): 6 Car Transfer (QC): 6 Does the Patient Walk: Yes Walk 10 feet (QC): 6 Walk 50ft with 2 Turns (QC): 6 Walk 150 ft (QC): 6 Walking 10ft on Uneven Surface: 5 1 Step (curb) (QC): 6 4 Steps (QC): 5 12 Steps (QC): 5 Picking up an Object (QC): 88 (bending restrictions) Does the Pt use WC or Scooter?: No Wheel 50 feet with 2 turns (QC: 9 Wheel 150 feet: 9 PT Plan Problem List Problem List: Activity Tolerance, Functional Strength, Safety, Balance, Gait, Transfer, Bed Mobility, ROM Treatment/Plan Treatment Plan: Continue Plan of Care Treatment Plan: Bed Mobility, Education, Functional Activity Kan[place], Functional Strength, Group Therapy, Gait, Safety, Therapeutic Exercise, Transfers Treatment Duration: Nov 04, 2019 Frequency: At least 5 of 7 days/Wk (IRF) Estimated Hrs Per Day: 1.5 hours per day Patient and/or Family Agrees t: Yes Safety Risks/Education Patient Education: Gait Training, Steps Teaching Recipient: Patient Teaching Methods: Discussion Response to Teaching: Reinforcement Needed Time/GCodes Time In: 1020 Time Out: 1120 Total Billed Treatment Time: 60 Total Billed Treatment 1 visit 1 FA x 10 min 2 EX x 35 min 1 GT x 15 min CATHLEEN MARINELLI PT Oct 16, 2019 11:49
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
--- NOTE | 2019-10-16 13:50 | NUR ---
RD ASSESSMENT PMHx: HTN; GERD; hiatal hernia; HLD PT INTERACTION: Pt was awake and pleasant during nutrition assessment. Pt states current appetite is "getting better." Note PO intake of 100% x1meal, per chart review. Pt states following a regular diet at home, and has no issues with chewing food, but some issues with swallowing liquids. Pt states some recent issues with nausea and vomiting. Pt states no issues with constipation or diarrhea. Note last BM was 10/14 and pt currently on bowel regimen of colace BID; senna BID; and miralax BID, per chart review. Pt states unsure of recent wt changes, but feels like she has lost weight. Note unable to determine recent wt hx, per chart review. ABNORMAL NUTRITION-RELATED LAB VALUES LOW: Pro 6.0 HIGH: Cl 108; BUN 25; glu 107; AST 40 Est. kcal needs: 1550 kcal | 20 kcal/kg Est. Pro needs: 63 g Pro | 0.8 g Pro/kg PES STATEMENT: Given current PO intake, no nutrition diagnosis at this time (NO-1.1) INTERVENTION: Continue with current diet order of Regular diet. Pt may benefit from nutrition supplementation if PO intake declines. Will continue to follow and reassess as pt needs, intake, and status change. MONITOR/EVALUATE: PO Intake; Plan of Care; Hydration Status; Weight Status; Lab Values Candida Lock, MS, RD, LD
--- NOTE | 2019-10-16 14:18 | Physical Therapy Daily Note ---
PT Daily Note-Current Subjective Pt is seated in chair upon arrival to room, agreeable to therapy at this time Appearance Following session, pt in chair with call light in reach and all needs met. Otf mendoza present at bedside Mental Status Patient Orientation: Person, Place, Time, Situation Transfers SCALE: Activities may be completed with or without assistive devices. 8-Duaterxcpd-ltigcpc completes the activity by him/herself with no assistance from a helper. 5-Set-up or Clean-up Assistance-helper sets up or cleans up; patient completes activity. [place] assists only prior to or following the activity. 4-Supervision or Touching Assistance-helper provides verbal cues and/or touching/steadying and/or contact guard assistance as patient completes activity. Assistance may be provided throughout the activity or intermittently. 3-Partial/Moderate Assistance-helper does LESS THAN HALF the effort. [place] lifts, holds or supports trunk or limbs, but provides less than half the effort. 2-Substantial/Maximal Assistance-helper does MORE THAN HALF the effort. [place] lifts or holds trunk or limbs and provides more than half the effort. 4-Pprdozjxo-lgfbtq does ALL the effort. Patient does none of the effort to complete the activity. Or, the assistance of 2 or more helpers is required for the patient to complete the activity. If activity was not attempted, code reason: 7-Patient Refused. 9-Not Applicable-not attempted and the patient did not perform the activity before the current illness, exacerbation or injury. 10-Not Attempted due to Environmental Limitations-(lack of equipment, weather restraints, etc.). 88-Not Attempted due to Medical Conditions or Safety Concerns. Sit to Stand (QC): 5 Weight Bearing Right Lower Extremity: Right Full Weight Bearing Left Lower Extremity: Left Full Weight Bearing Gait Training Does the Patient Walk?: Yes Distance: 150' x 2 Walk 10 feet (QC): 4 Walk 50 ft with 2 Turns(QC): 4 Walk 150 ft (QC): 4 Gait Assistive Device: Walker Platform Pt with NBOS and requires rest breaks during gait. Pt states she feels close to baseline with ambulation with platform walker and would like to trial ambulation with cane next week, with hopes of returning to use of no device in the future. Assessment Current Status: Good Progress Pt making good progress towards goals, will continue to increase activity tolerance, as able PT Short Term Goals Short Term Goals Time Frame: Oct 23, 2019 Sit to lyin Sit to stand: 4 Walk 150 feet: 4 4 steps: 4 PT Jail Goals Jail Goals PT Jail Goals Time Frame: Nov 04, 2019 Roll Left & Right (QC): 6 Sit to Lying (QC): 6 Lying-Sitting on Side/Bed(QC): 6 Sit to Stand (QC): 6 Chair/Asu-if-Zslhj Xfer(QC): 6 Toilet Transfer (QC): 6 Car Transfer (QC): 6 Does the Patient Walk: Yes Walk 10 feet (QC): 6 Walk 50ft with 2 Turns (QC): 6 Walk 150 ft (QC): 6 Walking 10ft on Uneven Surface: 5 1 Step (curb) (QC): 6 4 Steps (QC): 5 12 Steps (QC): 5 Picking up an Object (QC): 88 (bending restrictions) Does the Pt use WC or Scooter?: No Wheel 50 feet with 2 turns (QC: 9 Wheel 150 feet: 9 PT Plan Problem List Problem List: Activity Tolerance, Functional Strength, Safety, Balance, Gait, Transfer, Bed Mobility Treatment/Plan Treatment Plan: Continue Plan of Care Treatment Plan: Bed Mobility, Education, Functional Activity Kanwal, Functional Strength, Group Therapy, Gait, Safety, Therapeutic Exercise, Transfers Treatment Duration: Nov 04, 2019 Frequency: At least 5 of 7 days/Wk (IRF) Estimated Hrs Per Day: 1.5 hours per day Patient and/or Family Agrees t: Yes Time/GCodes Time In: 1330 Time Out: 1345 Total Billed Treatment Time: 15 Total Billed Treatment 1 visit 1 Ex x 15 min CATHLEEN MARINELLI PT Oct 16, 2019 14:18
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
[2019-10-16] MEDS: LOPERAMIDE 2 MG (IMODIUM) TABLET PO PRN ×2 (15:25→16:25)
[2019-10-16] MEDS: ENOXAPARIN 40 MG/0.4 ML (LOVENOX) SYR SC SCH (18:07)
[2019-10-16 18:58] VITALS: BP 144/67
[2019-10-16] MEDS: SIMvastatin 10 MG (ZOCOR) TAB PO SCH (20:29)
[2019-10-17] MEDS: ACETAMINOPHEN 325 MG TABLET PO SCH ×4 (00:08→17:29)
[2019-10-17] MEDS: KETOROLAC 30 MG/ML VIAL IVP SCH ×4 (00:09→17:29)
[2019-10-17 06:05] VITALS: BP 134/69
--- NOTE | 2019-10-17 09:24 | Physical Therapy Daily Note ---
PT Daily Note-Current Subjective Pt sitting in recliner upon arrival. Pt agrees to PT and asks to walk for Rx. Pain Numeric Pain Scale: 7 Location: Upper Location Body Site: Back Pain Description: Ache, Burning Comment: Pt reports pain with sitting but relieves with standing. Mental Status Patient Orientation: Person, Place, Time, Situation Attachments: Other-See Comments (Cervical Collar and brace, cast for L UE) Transfers SCALE: Activities may be completed with or without assistive devices. 9-Hgujfovmsx-phaqsvo completes the activity by him/herself with no assistance from a helper. 5-Set-up or Clean-up Assistance-helper sets up or cleans up; patient completes activity. [place] assists only prior to or following the activity. 4-Supervision or Touching Assistance-helper provides verbal cues and/or touching/steadying and/or contact guard assistance as patient completes activity. Assistance may be provided throughout the activity or intermittently. 3-Partial/Moderate Assistance-helper does LESS THAN HALF the effort. [place] lifts, holds or supports trunk or limbs, but provides less than half the effort. 2-Substantial/Maximal Assistance-helper does MORE THAN HALF the effort. [place] lifts or holds trunk or limbs and provides more than half the effort. 4-Kzkwacbgg-jubovw does ALL the effort. Patient does none of the effort to complete the activity. Or, the assistance of 2 or more helpers is required for the patient to complete the activity. If activity was not attempted, code reason: 7-Patient Refused. 9-Not Applicable-not attempted and the patient did not perform the activity before the current illness, exacerbation or injury. 10-Not Attempted due to Environmental Limitations-(lack of equipment, weather restraints, etc.). 88-Not Attempted due to Medical Conditions or Safety Concerns. Sit to Stand (QC): 5 Weight Bearing Right Lower Extremity: Right Full Weight Bearing Left Lower Extremity: Left Full Weight Bearing Gait Training Does the Patient Walk?: Yes Distance: 225' x2 Walk 10 feet (QC): 5 Walk 50 ft with 2 Turns(QC): 5 Walk 150 ft (QC): 5 Gait Persons Needed: 1 Gait Assistive Device: Walker Platform Treatments Pt transfers from recliner to standing then ambulates in hallway before returning to room. Pt is repositioned using pillows to comfort. Pt has all needs met, call light in hand. Assessment Current Status: Good Progress Pt tolerates Rx well. PT Short Term Goals Short Term Goals Time Frame: Oct 23, 2019 Sit to lyin Sit to stand: 4 Walk 150 feet: 4 4 steps: 4 PT [facility] Goals Applications Tester Goals PT [facility] Goals Time Frame: Nov 04, 2019 Roll Left & Right (QC): 6 Sit to Lying (QC): 6 Lying-Sitting on Side/Bed(QC): 6 Sit to Stand (QC): 6 Chair/Ljb-wm-Yyjcd Xfer(QC): 6 Toilet Transfer (QC): 6 Car Transfer (QC): 6 Does the Patient Walk: Yes Walk 10 feet (QC): 6 Walk 50ft with 2 Turns (QC): 6 Walk 150 ft (QC): 6 Walking 10ft on Uneven Surface: 5 1 Step (curb) (QC): 6 4 Steps (QC): 5 12 Steps (QC): 5 Picking up an Object (QC): 88 (bending restrictions) Does the Pt use WC or Scooter?: No Wheel 50 feet with 2 turns (QC: 9 Wheel 150 feet: 9 PT Plan Problem List Problem List: Activity Tolerance, Functional Strength Treatment/Plan Treatment Plan: Continue Plan of Care Treatment Plan: Bed Mobility, Education, Functional Activity Kanwal, Functional Strength, Group Therapy, Gait, Safety, Therapeutic Exercise, Transfers Treatment Duration: Nov 04, 2019 Frequency: At least 5 of 7 days/Wk (IRF) Estimated Hrs Per Day: 1.5 hours per day Patient and/or Family Agrees t: Yes Safety Risks/Education Patient Education: Gait Training, Transfer Techniques, Correct Positioning Teaching Methods: Discussion Response to Teaching: Verbalize Understanding Time/GCodes Time In: 845 Time Out: 905 Total Billed Treatment Time: 20 Total Billed Treatment 1,GT (20m) MARLYS AGUIRRE GAUGE AND WEIGH MACHINE ADJUSTER Oct 17, 2019 09:23
[2019-10-17 09:57] VITALS: BP 141/83
[2019-10-17] MEDS: DOCUSATE SODIUM 100 MG (COLACE) CAP PO SCH ×2 (09:57→21:09)
[2019-10-17] MEDS: polyethylene glycoL POWDER 17 GM (MIRALAX) PACK PO SCH ×2 (09:57→21:09)
[2019-10-17] MEDS: SENNA W/DOCUSATE (SENOKOT S) TABLET PO SCH ×2 (09:57→21:09)
[2019-10-17] MEDS: GABAPENTIN 300 MG (NEURONTIN) CAP PO SCH ×2 (09:58→21:05)
[2019-10-17] MEDS: MONTELUKAST 10 MG (SINGULAIR) TAB PO SCH (09:58)
[2019-10-17] MEDS: ASPIRIN E.C. 81 MG (ECOTRIN) TAB PO SCH (09:59)
[2019-10-17] MEDS: PANTOPRAZOLE 20 MG TABLET (PROTONIX) PO SCH (09:59)
[2019-10-17] MEDS: PARoxetine 10 MG (PAXIL) TAB PO SCH (09:59)
[2019-10-17] MEDS: lisINopril 5 MG (PRINIVIL) TABLET PO SCH (09:59)
[2019-10-17] MEDS: meTOproloL SUCCINATE 50 MG (TOPROL XL) TAB PO SCH (09:59)
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
[2019-10-17] MEDS: ENOXAPARIN 40 MG/0.4 ML (LOVENOX) SYR SC SCH (17:30)
[2019-10-17 18:55] VITALS: BP 121/82
[2019-10-17] MEDS: SIMvastatin 10 MG (ZOCOR) TAB PO SCH (21:05)
[2019-10-18] MEDS: ACETAMINOPHEN 325 MG TABLET PO SCH ×4 (00:22→18:22)
[2019-10-18] MEDS: KETOROLAC 30 MG/ML VIAL IVP SCH ×4 (00:22→18:39)
[2019-10-18 06:00] VITALS: BP 145/81
[2019-10-18] MEDS: MONTELUKAST 10 MG (SINGULAIR) TAB PO SCH (10:09)
[2019-10-18] MEDS: meTOproloL SUCCINATE 50 MG (TOPROL XL) TAB PO SCH (10:09)
[2019-10-18] MEDS: lisINopril 5 MG (PRINIVIL) TABLET PO SCH (10:09)
[2019-10-18] MEDS: PANTOPRAZOLE 20 MG TABLET (PROTONIX) PO SCH (10:10)
[2019-10-18] MEDS: ASPIRIN E.C. 81 MG (ECOTRIN) TAB PO SCH (10:10)
[2019-10-18] MEDS: PARoxetine 10 MG (PAXIL) TAB PO SCH (10:10)
[2019-10-18] MEDS: GABAPENTIN 300 MG (NEURONTIN) CAP PO SCH ×2 (10:10→20:53)
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
[2019-10-18] MEDS: polyethylene glycoL POWDER 17 GM (MIRALAX) PACK PO SCH ×2 (11:02→20:59)
[2019-10-18] MEDS: SENNA W/DOCUSATE (SENOKOT S) TABLET PO SCH ×2 (11:03→21:01)
[2019-10-18] MEDS: DOCUSATE SODIUM 100 MG (COLACE) CAP PO SCH ×2 (11:16→20:59)
[2019-10-18 16:42] VITALS: BP_SYST 152; BP_SYST 155; BP_DIAS 66; BP_DIAS 78
[2019-10-18] MEDS: ENOXAPARIN 40 MG/0.4 ML (LOVENOX) SYR SC SCH (18:39)
[2019-10-18] MEDS: SIMvastatin 10 MG (ZOCOR) TAB PO SCH (20:53)
[2019-10-19] MEDS: ACETAMINOPHEN 325 MG TABLET PO SCH ×4 (00:08→20:01)
[2019-10-19] MEDS: KETOROLAC 30 MG/ML VIAL IVP SCH ×2 (00:08→06:22)
[2019-10-19 05:44] LABS: BASOPHILS # (AUTO) 0.1 10^3/uL (0.0-0.1); BASOPHILS % (AUTO) 1 % (0-10); EOSINOPHILS # (AUTO) 1.1 10^3/uL (0.0-0.3); EOSINOPHILS % (AUTO) 9 % (0-10); HEMATOCRIT 32 % (35-52); HEMOGLOBIN 10.3 G/DL (11.5-16.0); LYMPHOCYTES # (AUTO) 2.4 X 10^3 (1.0-4.0); LYMPHOCYTES % (AUTO) 21 % (12-44); MEAN CORPUSCULAR HEMOGLOBIN 33 PG (25-34); MEAN CORPUSCULAR HGB CONC 33 G/DL (32-36); MEAN CORPUSCULAR VOLUME 100 FL (80-99); MEAN PLATELET VOLUME 10.2 FL (7.4-10.4); MONOCYTES # (AUTO) 1.3 X 10^3 (0.0-1.0); MONOCYTES % (AUTO) 11 % (0-12); NEUTROPHILS # (AUTO) 6.6 X 10^3 (1.8-7.8); NEUTROPHILS % (AUTO) 58 % (42-75); PLATELET COUNT 286 10^3/uL (130-400); RED CELL DISTRIBUTION WIDTH 14.9 % (10.0-14.5); WHITE BLOOD COUNT 11.3 10^3/uL (4.3-11.0)
[2019-10-19 05:57] LABS: ALBUMIN 3.2 GM/DL (3.2-4.5); POTASSIUM 4.4 MMOL/L (3.6-5.0)
[2019-10-19 05:58] LABS: CALCIUM 9.2 MG/DL (8.5-10.1)
[2019-10-19 05:59] LABS: TOTAL PROTEIN 6.3 GM/DL (6.4-8.2)
[2019-10-19 06:00] VITALS: BP 122/74
[2019-10-19 06:01] LABS: BILIRUBIN,TOTAL 0.6 MG/DL (0.1-1.0)
[2019-10-19 06:03] LABS: CREATININE SERUM 0.99 MG/DL (0.60-1.30)
[2019-10-19] MEDS: DOCUSATE SODIUM 100 MG (COLACE) CAP PO SCH ×2 (08:20→20:52)
[2019-10-19] MEDS: polyethylene glycoL POWDER 17 GM (MIRALAX) PACK PO SCH ×2 (08:20→20:52)
[2019-10-19] MEDS: PANTOPRAZOLE 20 MG TABLET (PROTONIX) PO SCH (08:41)
[2019-10-19] MEDS: lisINopril 5 MG (PRINIVIL) TABLET PO SCH (08:42)
[2019-10-19] MEDS: ASPIRIN E.C. 81 MG (ECOTRIN) TAB PO SCH (08:42)
[2019-10-19] MEDS: GABAPENTIN 300 MG (NEURONTIN) CAP PO SCH ×2 (08:42→20:46)
[2019-10-19] MEDS: MONTELUKAST 10 MG (SINGULAIR) TAB PO SCH (08:42)
[2019-10-19] MEDS: meTOproloL SUCCINATE 50 MG (TOPROL XL) TAB PO SCH (08:42)
[2019-10-19] MEDS: PARoxetine 10 MG (PAXIL) TAB PO SCH (08:42)
[2019-10-19] MEDS ORDERED: KETOROLAC 30 MG/ML VIAL IVP PRN (09:00)
--- NOTE | 2019-10-19 09:06 | Physical Therapy Daily Note ---
PT Daily Note-Current Subjective Pt. up in lift recline and states she has been up quite a while but is not in pain. Agrees to Rx. Pain Location: No Pain Reported Mental Status Patient Orientation: Normal For Age Attachments: Other-See Comments (cast L wrist, neck brace) Transfers SCALE: Activities may be completed with or without assistive devices. 2-Kegpwjocjt-oznusjz completes the activity by him/herself with no assistance from a helper. 5-Set-up or Clean-up Assistance-helper sets up or cleans up; patient completes activity. [place] assists only prior to or following the activity. 4-Supervision or Touching Assistance-helper provides verbal cues and/or touching/steadying and/or contact guard assistance as patient completes activity. Assistance may be provided throughout the activity or intermittently. 3-Partial/Moderate Assistance-helper does LESS THAN HALF the effort. [place] lifts, holds or supports trunk or limbs, but provides less than half the effort. 2-Substantial/Maximal Assistance-helper does MORE THAN HALF the effort. [place] lifts or holds trunk or limbs and provides more than half the effort. 9-Xfljprugw-etdyks does ALL the effort. Patient does none of the effort to complete the activity. Or, the assistance of 2 or more helpers is required for the patient to complete the activity. If activity was not attempted, code reason: 7-Patient Refused. 9-Not Applicable-not attempted and the patient did not perform the activity before the current illness, exacerbation or injury. 10-Not Attempted due to Environmental Limitations-(lack of equipment, weather restraints, etc.). 88-Not Attempted due to Medical Conditions or Safety Concerns. Roll Left & Right (QC): 6 Sit to Lying (QC): 6 Lying to Sitting/Side of Bed(Q: 6 Sit to Stand (QC): 6 Chair/Yzs-rz-Ucgkq Xfer(QC): 6 Weight Bearing Right Lower Extremity: Right Full Weight Bearing Left Lower Extremity: Left Full Weight Bearing Gait Training Does the Patient Walk?: Yes Walk 10 feet (QC): 6 Walk 50 ft with 2 Turns(QC): 6 Walk 150 ft (QC): 6 Gait Persons Needed: 1 Gait Assistive Device: Walker Platform Pt stats she has had a history of dizziness and hopes to transition to cane but this ENT PHYSICIAN urges and instructs that she continue use of platf FWW for now to conserve energy and protect back and alignment Exercises Supine Ex: Bridging (x5 very little ext), Ankle pumps, Pelvic tilt, Quad Set, Rolling, Glut sets, Heel Slides, Short Arc Quads, Scooting, Hip abd/add Supine Reps: 20 Seated Therapy Exercises: Ankle pumps, Sit to stand, Long arc quads, Hip flexion, Hip abd/add Seated Reps: 12 NuStep Minutes: 10 NuStep Workload: 3 Treatments arms not used on Nustep Assessment Current Status: Good Progress pt. moving well, no c/o pain except in traps, gentle massage to bilat traps x 4 min PT Short Term Goals Short Term Goals Time Frame: Oct 23, 2019 Sit to lyin Sit to stand: 4 Walk 150 feet: 4 4 steps: 4 PT [employer] Trimmer Goals Nursing Home Goals PT [employer] Trimmer Goals Time Frame: Nov 04, 2019 Roll Left & Right (QC): 6 Sit to Lying (QC): 6 Lying-Sitting on Side/Bed(QC): 6 Sit to Stand (QC): 6 Chair/Fsl-ey-Iynoq Xfer(QC): 6 Toilet Transfer (QC): 6 Car Transfer (QC): 6 Does the Patient Walk: Yes Walk 10 feet (QC): 6 Walk 50ft with 2 Turns (QC): 6 Walk 150 ft (QC): 6 Walking 10ft on Uneven Surface: 5 1 Step (curb) (QC): 6 4 Steps (QC): 5 12 Steps (QC): 5 Picking up an Object (QC): 88 (bending restrictions) Does the Pt use WC or Scooter?: No Wheel 50 feet with 2 turns (QC: 9 Wheel 150 feet: 9 PT Plan Treatment/Plan Treatment Plan: Continue Plan of Care Treatment Plan: Bed Mobility, Education, Functional Activity Kan[place], Functional Strength, Group Therapy, Gait, Safety, Therapeutic Exercise, Transfers Treatment Duration: Nov 04, 2019 Frequency: At least 5 of 7 days/Wk (IRF) Estimated Hrs Per Day: 1.5 hours per day Patient and/or Family Agrees t: Yes Safety Risks/Education Patient Education: Gait Training, Transfer Techniques, Correct Positioning, Disease Process, Safety Issues Teaching Recipient: Patient Teaching Methods: Demonstration, Discussion Response to Teaching: Verbalize Understanding, Return Demonstration, Reinforcement Needed Time/GCodes Time In: 800 Time Out: 900 Total Billed Treatment Time: 60 Total Billed Treatment 1,EX30m,GT15m,FA15m ALBA SNELL ENT PHYSICIAN Oct 19, 2019 09:06
[2019-10-19] MEDS: SENNA W/DOCUSATE (SENOKOT S) TABLET PO SCH ×2 (09:14→20:53)
[2019-10-19] MEDS: CELECOXIB 100 MG (CeleBREX) CAP PO SCH ×2 (09:33→20:46)
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
--- NOTE | 2019-10-19 11:14 | Occupational Ther Daily Note ---
OT Current Status-Daily Note Subjective Pt in reclining chair when OT entered room. No c/o pain this a.m. Pt. agreeable to therapy. Mental Status/Objective Patient Orientation: Person, Place, Time, Situation Attachments: IV ADL-Treatment Therapy Code Descriptions/Definitions Functional [place] Measure: 0=Not Assessed/NA 4=Minimal Assistance 1=Total Assistance 5=Supervision or Setup 2=Maximal Assistance 6=Modified [place] 3=Moderate Assistance 7=Complete IndependenceSCALE: Activities may be completed with or without assistive devices. 2-Uxbltdeshf-evjsayj completes the activity by him/herself with no assistance from a helper. 5-Set-up or Clean-up Assistance-helper sets up or cleans up; patient completes activity. [place] assists only prior to or following the activity. 4-Supervision or Touching Assistance-helper provides verbal cues and/or touching/steadying and/or contact guard assistance as patient completes activity. Assistance may be provided throughout the activity or intermittently. 3-Partial/Moderate Assistance-helper does LESS THAN HALF the effort. [place] lifts, holds or supports trunk or limbs, but provides less than half the effort. 2-Substantial/Maximal Assistance-helper does MORE THAN HALF the effort. [place] lifts or holds trunk or limbs and provides more than half the effort. 1-Fjdraegkt-plbnno does ALL the effort. Patient does none of the effort to complete the activity. Or, the assistance of 2 or more helpers is required for the patient to complete the activity. If activity was not attempted, code reason: 7-Patient Refused. 9-Not Applicable-not attempted and the patient did not perform the activity before the current illness, exacerbation or injury. 10-Not Attempted due to Environmental Limitations-(lack of equipment, weather restraints, etc.). 88-Not Attempted due to Medical Conditions or Safety Concerns. Oral Hygiene (QC): 4 Shower/Bathe Self (QC): 4 (CGA for sponge bath while seated in chair due to inability to get injured areas wet. Pt. unable to doff brace at this time per instruction.) Upper Body Dressing (QC): 2 (Max assist to don undershirt under brace. Max asssist to adjust brace. Min assist to don outer shirt.) Lower Body Dressing (QC): 4 On/Off Footwear: 4 Toileting Hygiene (QC): 4 Toilet Transfer (QC): 4 Pt. agreed to sponge bath while seated in reclining chair due to inability to remove braces. OT provided warm wash cloths and towels. Pt. washed self using w karen clothes and long handled sponge with CGA to maintain precautions. Max A required for UB dressing in order to maintain precautions. Pt. able to dress LE with CGA. Sock aid and CGA required for donning footwear. Pt. ambulated to bathroom with SBA using platform walker. Once in bathroom, pt. able to stand and complete oral hygiene with CGA to maintain precautions. Pt. required SBA for toilet transfer and toilet hygiene. Platform walker used to ambulate to therapy gym with SBA. Pt. participated in 10 minute arm bike activity with minimal resistance, with one rest break needed, and 10 minute arm bessy activity to tolerance to increase ROM in BUE. Pt. ambulated back to room with platform walker and seated in reclining chair when OT left. All needs met. Education OT Patient Education: Correct positioning, Energy conservation, Modified ADL techniques, Progress toward Goal/Update tx plan, Purpose of tx/functional activities, Reviewed precautions, Rehab process, Use of adapted equipment Teaching Recipient: Patient Teaching Methods: Demonstration, Discussion Response to Teaching: Verbalize Understanding, Return Demonstration OT Short Term Goals Short Term Goals Time Frame: Oct 22, 2019 Eatin Oral hygiene: 4 (SBA) Toileting hygiene: 4 (SBA) Shower/bathe self: 3 (Min assist) Upper body dressin (SBA) Lower body dressin (SBA) Putting on/taking off footwear: 4 (SBA) OT Marketing Communications Assistant Goals Marketing Communications Assistant Goals Time Frame: Oct 29, 2019 Eating (QC): 6 Oral Hygiene (QC): 6 Toileting Hygiene (QC): 6 Shower/Bathe Self (QC): 5 Upper Body Dressing (QC): 6 Lower Body Dressing (QC): 6 On/Off Footwear (QC): 6 Additional Goals: 1-Demonstrate ADL Tasks, 2-Verbalize Understanding, 3- ImproveStrength/Kan[place] 1=Demonstrate adherence to instructed precautions during ADL tasks. 2=Patient will verbalize/demonstrate understanding of assistive devices/modifications for ADL. 3=Patient will improve strength/tolerance for activity to enable patient to perform ADL's. OT Education/Plan Problem List/Assessment Assessment: Decreased Activ Tolerance, Decreased UE Strength, Dependent Transfers, Impaired I ADL's, Impaired Self-Care Skills, Restricted Funct UE ROM Discharge Recommendations Plan/Recommendations: Continue POC Therapy Discharge Recommendati: Home & Family, Post Acute OT Equpiment Recommendations-D/C: Sock Aide Comment Platform walker Treatment Plan/Plan of Care Treatment,Training & Education: Yes Patient would benefit from OT for education, treatment and training to promote independence in ADL's, mobility, safety and/or upper extremity function for ADL's. Plan of Care: ADL Retraining, Functional Mobility, Group Exercise/Act as Ind, UE Funct Exercise/Act Treatment Duration: Oct 29, 2019 Frequency: At least 5 of 7 days/Wk (IRF) Estimated Hrs Per Day: 1.5 hours per day Agreement: Yes Rehab Potential: Good Time/GCodes Start Time: 09:30 Stop Time: 11:00 Total Time Billed (hr/min): 90 Billed Treatment Time 1, ADL x4 (60 minutes), EX x2 (30 minutes) YASMINE DAILY OT Oct 19, 2019 11:14
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
[2019-10-19] MEDS: VALACYCLOVIR 500 MG TAB (VALTREX) PO SCH (17:10)
[2019-10-19 18:00] VITALS: BP 153/67
[2019-10-19] MEDS: ENOXAPARIN 40 MG/0.4 ML (LOVENOX) SYR SC SCH (18:04)
--- NOTE | 2019-10-19 19:08 | NUR ---
bedside report received from NICK PA, assume care of pt
--- NOTE | 2019-10-19 20:01 | NUR ---
tylenol 650mg given late today, given now reports pain to chest & hand level 5/10 on numeric scale tylenol given now
--- NOTE | 2019-10-19 20:31 | NUR ---
rates pain level 4/10 on numeric scale
[2019-10-19] MEDS: SIMvastatin 10 MG (ZOCOR) TAB PO SCH (20:45)
--- NOTE | 2019-10-19 20:46 | NUR ---
pt took miralax, refused Colace & Senokot, states hurts my stomach
[2019-10-20] MEDS: ACETAMINOPHEN 325 MG TABLET PO SCH ×4 (00:33→18:21)
--- NOTE | 2019-10-20 00:47 | NUR ---
c/o chest & hand pain level 6/10 on numeric scale, pt asking for Toradol, Toradol 30mg iv given.
--- NOTE | 2019-10-20 01:37 | NUR ---
resting quietly in bed, pain level 0/10 on CNPI scale
[2019-10-20 05:58] VITALS: BP 143/80
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
--- NOTE | 2019-10-20 08:59 | Physical Therapy Daily Note ---
PT Daily Note-Current Subjective Pt in recliner upon arrival and agrees to tx. Pt doesn't state any pain but her neck felt tired. Mental Status Patient Orientation: Person, Place, Time, Situation Transfers SCALE: Activities may be completed with or without assistive devices. 9-Jqlxkxlvhi-vygnqrb completes the activity by him/herself with no assistance from a helper. 5-Set-up or Clean-up Assistance-helper sets up or cleans up; patient completes activity. [place] assists only prior to or following the activity. 4-Supervision or Touching Assistance-helper provides verbal cues and/or touching/steadying and/or contact guard assistance as patient completes act ivity. Assistance may be provided throughout the activity or intermittently. 3-Partial/Moderate Assistance-helper does LESS THAN HALF the effort. [place] lifts, holds or supports trunk or limbs, but provides less than half the effort. 2-Substantial/Maximal Assistance-helper does MORE THAN HALF the effort. [place] lifts or holds trunk or limbs and provides more than half the effort. 5-Fjpczbmlj-zibfrb does ALL the effort. Patient does none of the effort to complete the activity. Or, the assistance of 2 or more helpers is required for the patient to complete the activity. If activity was not attempted, code reason: 7-Patient Refused. 9-Not Applicable-not attempted and the patient did not perform the activity before the current illness, exacerbation or injury. 10-Not Attempted due to Environmental Limitations-(lack of equipment, weather restraints, etc.). 88-Not Attempted due to Medical Conditions or Safety Concerns. Sit to Stand (QC): 5 Weight Bearing Right Lower Extremity: Right Full Weight Bearing Left Lower Extremity: Left Full Weight Bearing Gait Training Does the Patient Walk?: Yes Distance: 600 Walk 10 feet (QC): 5 Walk 50 ft with 2 Turns(QC): 5 Walk 150 ft (QC): 5 Gait Persons Needed: 1 Gait Assistive Device: Walker Platform Pt amb with platform walker. Pt stated at home she doesn't use a walker but is willing to use one at home. Exercises Standing: Hip Abduction, Hamstring curls, Heel/toe raises, Marching, Mini squats, Sit to Stand, Unilateral stance, Weight shifts Standing Reps: 12 NuStep Minutes: 15 NuStep Workload: 5 Treatments Pt amb in hallway to // bars in gym. Pt performs standing exercises prior to NuStep. Pt amb in hallway prior to returning to room. In room pt performs static standing balance activities. Pt returns to recliner and was left with all needs met, call light in hand. Assessment Current Status: Excellent Progress Pt needs few TC with balance activities. Pt didn't require any seated rest breaks throughout tx. PT Short Term Goals Short Term Goals Time Frame: Oct 23, 2019 Sit to lyin Sit to stand: 4 Walk 150 feet: 4 4 steps: 4 PT Residential Goals Residential Goals PT Investigator Operator Goals Time Frame: Nov 04, 2019 Roll Left & Right (QC): 6 Sit to Lying (QC): 6 Lying-Sitting on Side/Bed(QC): 6 Sit to Stand (QC): 6 Chair/Jwu-px-Bxhzg Xfer(QC): 6 Toilet Transfer (QC): 6 Car Transfer (QC): 6 Does the Patient Walk: Yes Walk 10 feet (QC): 6 Walk 50ft with 2 Turns (QC): 6 Walk 150 ft (QC): 6 Walking 10ft on Uneven Surface: 5 1 Step (curb) (QC): 6 4 Steps (QC): 5 12 Steps (QC): 5 Picking up an Object (QC): 88 (bending restrictions) Does the Pt use WC or Scooter?: No Wheel 50 feet with 2 turns (QC: 9 Wheel 150 feet: 9 PT Plan Treatment/Plan Treatment Plan: Continue Plan of Care Treatment Plan: Bed Mobility, Education, Functional Activity Kanwal, Functional Strength, Group Therapy, Gait, Safety, Therapeutic Exercise, Transfers Treatment Duration: Nov 04, 2019 Frequency: At least 5 of 7 days/Wk (IRF) Estimated Hrs Per Day: 1.5 hours per day Patient and/or Family Agrees t: Yes Safety Risks/Education Patient Education: Gait Training, Correct Positioning, Safety Issues Teaching Recipient: Patient Teaching Methods: Demonstration, Discussion Response to Teaching: Verbalize Understanding, Return Demonstration Time/GCodes Time In: 800 Time Out: 900 Total Billed Treatment Time: 60 Total Billed Treatment 1, Ex x2 (30m), GT (15m), NM (15m) MARLYS AGUIRRE COAL MINE INSPECTOR Oct 20, 2019 08:59
[2019-10-20 09:00] VITALS: BP 132/63
[2019-10-20] MEDS: CELECOXIB 100 MG (CeleBREX) CAP PO SCH ×2 (09:11→20:16)
[2019-10-20] MEDS: ASPIRIN E.C. 81 MG (ECOTRIN) TAB PO SCH (09:12)
[2019-10-20] MEDS: lisINopril 5 MG (PRINIVIL) TABLET PO SCH (09:12)
[2019-10-20] MEDS: MONTELUKAST 10 MG (SINGULAIR) TAB PO SCH (09:12)
[2019-10-20] MEDS: GABAPENTIN 300 MG (NEURONTIN) CAP PO SCH ×2 (09:12→20:16)
[2019-10-20] MEDS: meTOproloL SUCCINATE 50 MG (TOPROL XL) TAB PO SCH (09:12)
[2019-10-20] MEDS: PANTOPRAZOLE 20 MG TABLET (PROTONIX) PO SCH (09:12)
[2019-10-20] MEDS: PARoxetine 10 MG (PAXIL) TAB PO SCH (09:12)
[2019-10-20] MEDS: SENNA W/DOCUSATE (SENOKOT S) TABLET PO SCH ×2 (09:14→20:17)
[2019-10-20] MEDS: DOCUSATE SODIUM 100 MG (COLACE) CAP PO SCH ×2 (09:15→20:16)
[2019-10-20] MEDS: polyethylene glycoL POWDER 17 GM (MIRALAX) PACK PO SCH ×2 (09:15→20:16)
--- NOTE | 2019-10-20 11:29 | Occupational Ther Daily Note ---
OT Current Status-Daily Note Subjective Pt. up in reclining chair when OT entered room. Pt. stated that she was having some dull pain "all over," but did not rate. Pt. reported that she recently had pain medication. Mental Status/Objective Patient Orientation: Person, Place, Time, Situation Attachments: IV ADL-Treatment Therapy Code Descriptions/Definitions Functional [place] Measure: 0=Not Assessed/NA 4=Minimal Assistance 1=Total Assistance 5=Supervision or Setup 2=Maximal Assistance 6=Modified [place] 3=Moderate Assistance 7=Complete IndependenceSCALE: Activities may be completed with or without assistive devices. 6-Zckkndruqm-doxrebq completes the activity by him/herself with no assistance from a helper. 5-Set-up or Clean-up Assistance-helper sets up or cleans up; patient completes activity. [place] assists only prior to or following the activity. 4-Supervision or Touching Assistance-helper provides verbal cues and/or t ouching/steadying and/or contact guard assistance as patient completes activity. Assistance may be provided throughout the activity or intermittently. 3-Partial/Moderate Assistance-helper does LESS THAN HALF the effort. [place] lifts, holds or supports trunk or limbs, but provides less than half the effort. 2-Substantial/Maximal Assistance-helper does MORE THAN HALF the effort. [place] lifts or holds trunk or limbs and provides more than half the effort. 1-Umjijtajo-ascvda does ALL the effort. Patient does none of the effort to complete the activity. Or, the assistance of 2 or more helpers is required for the patient to complete the activity. If activity was not attempted, code reason: 7-Patient Refused. 9-Not Applicable-not attempted and the patient did not perform the activity before the current illness, exacerbation or injury. 10-Not Attempted due to Environmental Limitations-(lack of equipment, weather restraints, etc.). 88-Not Attempted due to Medical Conditions or Safety Concerns. Shower/Bathe Self (QC): 4 Upper Body Dressing (QC): 3 Lower Body Dressing (QC): 4 On/Off Footwear: 4 Toileting Hygiene (QC): 4 Toilet Transfer (QC): 4 Pt. in reclining chair when OT entered room. Pt. requested to wash off and change clothing. OT provided warm wash cloths to pt. while in chair in order to wash while following doctor's order to wear brace at all times. Pt. bathed and dried self with SBA for safety. Pt. dressed upper body with minimal assistance to adjust shirt while following precautions. Pt. dressed lower body with SBA. Sock aid was used to don sock on right foot. Pt was able to bring left foot to right knee to don left sock without assistive devices. After dressing, pt. requested to use bathroom requiring SBA for safety and following precautions. S BA and platform walker required by pt. to ambulate to therapy gym. Pt. reported sewing as a past-time. OT offered threading activity to work on fine motor skills, hand eye coordination, and activity tolerance. Pt. educated on importance of moving digits of left UE to help reduce swelling. Pt. participated in activity for 20 minutes with extra time to complete activity due to swelling. Pt. reported that she could move her fingers better after functional activity. PT working with pt. at end of session. All needs met. Education OT Patient Education: Correct positioning, Energy conservation, Modified ADL techniques, Progress toward Goal/Update tx plan, Purpose of tx/functional activities, Reviewed precautions, Rehab process Teaching Recipient: Patient Teaching Methods: Demonstration, Discussion Response to Teaching: Verbalize Understanding, Return Demonstration OT Short Term Goals Short Term Goals Time Frame: Oct 22, 2019 Eatin Oral hygiene: 4 (SBA) Toileting hygiene: 4 (SBA) Shower/bathe self: 3 (Min assist) Upper body dressin (SBA) Lower body dressin (SBA) Putting on/taking off footwear: 4 (SBA) OT Fdc Goals Fdc Goals Time Frame: Oct 29, 2019 Eating (QC): 6 Oral Hygiene (QC): 6 Toileting Hygiene (QC): 6 Shower/Bathe Self (QC): 5 Upper Body Dressing (QC): 6 Lower Body Dressing (QC): 6 On/Off Footwear (QC): 6 Additional Goals: 1-Demonstrate ADL Tasks, 2-Verbalize Understanding, 3- ImproveStrength/Kanwal 1=Demonstrate adherence to instructed precautions during ADL tasks. 2=Patient will verbalize/demonstrate understanding of assistive devices/modifications for ADL. 3=Patient will improve strength/tolerance for activity to enable patient to perform ADL's. OT Education/Plan Problem List/Assessment Assessment: Decreased Activ Tolerance, Decreased UE Strength, Edema, Impaired Funct Balance, Impaired I ADL's, Impaired Self-Care Skills, Restricted Funct UE ROM Discharge Recommendations Plan/Recommendations: Continue POC Therapy Discharge Recommendati: Home & Family, Post Acute OT Treatment Plan/Plan of Care Treatment,Training & Education: Yes Patient would benefit from OT for education, treatment and training to promote independence in ADL's, mobility, safety and/or upper extremity function for ADL's. Plan of Care: ADL Retraining, Functional Mobility, Group Exercise/Act as Ind, UE Funct Exercise/Act Treatment Duration: Oct 29, 2019 Frequency: At least 5 of 7 days/Wk (IRF) Estimated Hrs Per Day: 1.5 hours per day Agreement: Yes Rehab Potential: Good Time/GCodes Start Time: 10:05 Stop Time: 11:15 Total Time Billed (hr/min): 70 Billed Treatment Time 1, ADL x3 (40 minutes), FA x2 (30 minutes) YASMINE DAILY OT Oct 20, 2019 11:29
--- NOTE | 2019-10-20 11:46 | Physical Therapy Daily Note ---
PT Daily Note-Current Subjective Pt in gym prior to tx. Pt agrees to PT. At end of tx pt states pain 5/10 R scapula. Pain Numeric Pain Scale: 5-Moderate Pain Location: Right Pain Description: Ache Mental Status Patient Orientation: Person, Place, Time, Situation Transfers SCALE: Activities may be completed with or without assistive devices. 5-Lpktvfppek-eghzdtp completes the activity by him/herself with no assistance from a helper. 5-Set-up or Clean-up Assistance-helper sets up or cleans up; patient completes activity. [place] assists only prior to or following the activity. 4-Supervision or Touching Assistance-helper provides verbal cues and/or touching/steadying and/or contact guard assistance as patient completes activity. Assistance may be provided throughout the activity or intermittently. 3-Partial/Moderate Assistance-helper does LESS THAN HALF the effort. [place] lifts, holds or supports trunk or limbs, but provides less than half the effort. 2-Substantial/Maximal Assistance-helper does MORE THAN HALF the effort. [place] lifts or holds trunk or limbs and provides more than half the effort. 9-Cysrdsedj-wlvxoe does ALL the effort. Patient does none of the effort to complete the activity. Or, the assistance of 2 or more helpers is required for the patient to complete the activity. If activity was not attempted, code reason: 7-Patient Refused. 9-Not Applicable-not attempted and the patient did not perform the activity befo re the current illness, exacerbation or injury. 10-Not Attempted due to Environmental Limitations-(lack of equipment, weather re straints, etc.). 88-Not Attempted due to Medical Conditions or Safety Concerns. Sit to Stand (QC): 5 Weight Bearing Right Lower Extremity: Right Full Weight Bearing Left Lower Extremity: Left Full Weight Bearing Gait Training Does the Patient Walk?: Yes Distance: 300 Walk 10 feet (QC): 5 Walk 50 ft with 2 Turns(QC): 5 Walk 150 ft (QC): 5 Gait Persons Needed: 1 Gait Assistive Device: Walker Platform Exercises Standing: Heel/toe raises, Mini squats, Sit to Stand Standing Reps: 10 Treatments Pt performs standing exercises in gym. Pt does dynamic standing balance with kic adri/catching and throwing a ball. Pt required SBA and had no LOB during balance activity. Pt amb in antunez with lumber checker, picking up dasilva bags placed throughout sitting area on unit. Pt returns to recliner in room, left with all needs met and call light in hand. Assessment Current Status: Excellent Progress Pt requires few rest breaks and has no LOB with amb or balance activities. PT Short Term Goals Short Term Goals Time Frame: Oct 23, 2019 Sit to lyin Sit to stand: 4 Walk 150 feet: 4 4 steps: 4 PT Project Estimator Goals Fpc Goals PT Project Estimator Goals Time Frame: Nov 04, 2019 Roll Left & Right (QC): 6 Sit to Lying (QC): 6 Lying-Sitting on Side/Bed(QC): 6 Sit to Stand (QC): 6 Chair/Pgs-an-Vhacs Xfer(QC): 6 Toilet Transfer (QC): 6 Car Transfer (QC): 6 Does the Patient Walk: Yes Walk 10 feet (QC): 6 Walk 50ft with 2 Turns (QC): 6 Walk 150 ft (QC): 6 Walking 10ft on Uneven Surface: 5 1 Step (curb) (QC): 6 4 Steps (QC): 5 12 Steps (QC): 5 Picking up an Object (QC): 88 (bending restrictions) Does the Pt use WC or Scooter?: No Wheel 50 feet with 2 turns (QC: 9 Wheel 150 feet: 9 PT Plan Treatment/Plan Treatment Plan: Continue Plan of Care Treatment Plan: Bed Mobility, Education, Functional Activity Kanwal, Functional Strength, Group Therapy, Gait, Safety, Therapeutic Exercise, Transfers Treatment Duration: Nov 04, 2019 Frequency: At least 5 of 7 days/Wk (IRF) Estimated Hrs Per Day: 1.5 hours per day Patient and/or Family Agrees t: Yes Safety Risks/Education Patient Education: Gait Training, Correct Positioning, Safety Issues Teaching Recipient: Patient Teaching Methods: Demonstration, Discussion Response to Teaching: Verbalize Understanding, Return Demonstration Time/GCodes Time In: 1115 Time Out: 1145 Total Billed Treatment Time: 30 Total Billed Treatment 1, Ex (15m), FA (15m) MARLYS AGUIRRE PTA Oct 20, 2019 11:46
--- NOTE | 2019-10-20 14:45 | Occupational Ther Daily Note ---
OT Current Status-Daily Note Subjective Pt in reclining chair when OT entered room. Pt. agreeable to therapy. Pt. reported dull pain in shoulder, but reported "I had medicine and I think that the muscles just need to move". Mental Status/Objective Patient Orientation: Person, Place, Time, Situation Attachments: IV ADL-Treatment Therapy Code Descriptions/Definitions Functional [place] Measure: 0=Not Assessed/NA 4=Minimal Assistance 1=Total Assistance 5=Supervision or Setup 2=Maximal Assistance 6=Modified [place] 3=Moderate Assistance 7=Complete IndependenceSCALE: Activities may be completed with or without assistive devices. 2-Qepavgbbkd-fehjnbt completes the activity by him/herself with no assistance from a helper. 5-Set-up or Clean-up Assistance-helper sets up or cleans up; patient completes activity. [place] assists only prior to or following the activity. 4-Supervision or Touching Assistance-helper provides verbal cues and/or touching/steadying and/or contact guard assistance as patient completes activity. Assistance may be provided throughout the activity or intermittently. 3-Partial/Moderate Assistance-helper does LESS THAN HALF the effort. [place] lifts, holds or supports trunk or limbs, but provides less than half the effort. 2-Substantial/Maximal Assistance-helper does MORE THAN HALF the effort. [place] lifts or holds trunk or limbs and provides more than half the effort. 7-Tffraayoo-hgsxfm does ALL the effort. Patient does none of the effort to complete the activity. Or, the assistance of 2 or more helpers is required for the patient to complete the activity. If activity was not attempted, code reason: 7-Patient Refused. 9-Not Applicable-not attempted and the patient did not perform the activity before the current illness, exacerbation or injury. 10-Not Attempted due to Environmental Limitations-(lack of equipment, weather restraints, etc.). 88-Not Attempted due to Medical Conditions or Safety Concerns. Oral Hygiene (QC): 4 Toileting Hygiene (QC): 4 Toilet Transfer (QC): 4 Pt. transferred to toilet with SBA using platform walker. Pt. completed leon hygiene with SBA for safety. Pt. ambulated to sink with platform walker. Oral hygiene completed with CGA to follow precautions. Other Treatment Pt. ambulated to therapy gym with SBA using platform walker. Pt. completed 12 minutes of arm bike activity at minimal resistance to work on B UE ROM with one rest break. Pt. returned to room using platform walker and SBA. Family in room when OT left. All needs met. Education OT Patient Education: Disease process, Exercise program, Progress toward Goal/Update tx plan, Purpose of tx/functional activities, Reviewed precautions, Rehab process, Transfer techniques Teaching Recipient: Patient Teaching Methods: Demonstration, Discussion Response to Teaching: Verbalize Understanding, Return Demonstration OT Short Term Goals Short Term Goals Time Frame: Oct 22, 2019 Eatin Oral hygiene: 4 (SBA) Toileting hygiene: 4 (SBA) Shower/bathe self: 3 (Min assist) Upper body dressin (SBA) Lower body dressin (SBA) Putting on/taking off footwear: 4 (SBA) OT Maritime Engineer Goals [facility] Goals Time Frame: Oct 29, 2019 Eating (QC): 6 Oral Hygiene (QC): 6 Toileting Hygiene (QC): 6 Shower/Bathe Self (QC): 5 Upper Body Dressing (QC): 6 Lower Body Dressing (QC): 6 On/Off Footwear (QC): 6 Additional Goals: 1-Demonstrate ADL Tasks, 2-Verbalize Understanding, 3- ImproveStrength/Kanwal 1=Demonstrate adherence to instructed precautions during ADL tasks. 2=Patient will verbalize/demonstrate understanding of assistive devices/modifications for ADL. 3=Patient will improve strength/tolerance for activity to enable patient to perform ADL's. OT Education/Plan Problem List/Assessment Assessment: Decreased Activ Tolerance, Decreased UE Strength, Dependent Transfers, Impaired I ADL's, Impaired Self-Care Skills, Restricted Funct UE ROM Discharge Recommendations Plan/Recommendations: Continue POC Therapy Discharge Recommendati: Home & Family, Post Acute OT Treatment Plan/Plan of Care Treatment,Training & Education: Yes Patient would benefit from OT for education, treatment and training to promote independence in ADL's, mobility, safety and/or upper extremity function for ADL's. Plan of Care: ADL Retraining, Functional Mobility, Group Exercise/Act as Ind, UE Funct Exercise/Act Treatment Duration: Oct 29, 2019 Frequency: At least 5 of 7 days/Wk (IRF) Estimated Hrs Per Day: 1.5 hours per day Agreement: Yes Rehab Potential: Good Time/GCodes Start Time: 13:20 Stop Time: 13:40 Total Time Billed (hr/min): 20 Billed Treatment Time 1, EX YASMINE DAILY OT Oct 20, 2019 14:45
[2019-10-20 17:12] VITALS: BP 133/79
[2019-10-20] MEDS: ENOXAPARIN 40 MG/0.4 ML (LOVENOX) SYR SC SCH (18:24)
--- NOTE | 2019-10-20 19:10 | NUR ---
bedside report received from KEYONNA PA, assume care of pt
[2019-10-20] MEDS: SIMvastatin 10 MG (ZOCOR) TAB PO SCH (20:15)
--- NOTE | 2019-10-20 20:16 | NUR ---
pt took miralax & refused Colace & Senokot.
--- NOTE | 2019-10-20 21:15 | NUR ---
dressing change to lt hand cleaned with saline, applied 4x4 gauze, Kerlix splint & nathan wrap, keeping lt hand elevated
[2019-10-21] MEDS: ACETAMINOPHEN 325 MG TABLET PO SCH ×4 (00:06→18:33)
[2019-10-21 05:53] VITALS: BP 126/73
[2019-10-21] MEDS: CELECOXIB 100 MG (CeleBREX) CAP PO SCH ×2 (08:37→20:38)
[2019-10-21] MEDS: PANTOPRAZOLE 20 MG TABLET (PROTONIX) PO SCH (08:37)
[2019-10-21] MEDS: ASPIRIN E.C. 81 MG (ECOTRIN) TAB PO SCH (08:37)
[2019-10-21] MEDS: GABAPENTIN 300 MG (NEURONTIN) CAP PO SCH ×2 (08:37→20:38)
[2019-10-21] MEDS: MONTELUKAST 10 MG (SINGULAIR) TAB PO SCH (08:37)
[2019-10-21] MEDS: PARoxetine 10 MG (PAXIL) TAB PO SCH (08:37)
[2019-10-21] MEDS: lisINopril 5 MG (PRINIVIL) TABLET PO SCH (08:37)
[2019-10-21] MEDS: meTOproloL SUCCINATE 50 MG (TOPROL XL) TAB PO SCH (08:37)
[2019-10-21] MEDS: polyethylene glycoL POWDER 17 GM (MIRALAX) PACK PO SCH ×2 (08:38→20:44)
[2019-10-21] MEDS: DOCUSATE SODIUM 100 MG (COLACE) CAP PO SCH ×2 (08:38→20:43)
[2019-10-21] MEDS: SENNA W/DOCUSATE (SENOKOT S) TABLET PO SCH ×2 (08:38→20:44)
--- NOTE | 2019-10-21 09:29 | Occupational Ther Daily Note ---
OT Current Status-Daily Note Subjective Pt. up in reclining chair when OT entered room. Pt. reported that she slept "very well" last night and was able to sleep in this morning. No c/o pain this am. Pt. requested getting cleaned up and dressed for appointment this afternoon. Pt. reported that she is most nervous about cooking when discharged. Mental Status/Objective Patient Orientation: Person, Place, Time, Situation Attachments: IV ADL-Treatment Therapy Code Descriptions/Definitions Functional [place] Measure: 0=Not Assessed/NA 4=Minimal Assistance 1=Total Assistance 5=Supervision or Setup 2=Maximal Assistance 6=Modified [place] 3=Moderate Assistance 7=Complete IndependenceSCALE: Activities may be completed with or without assistive devices. 4-Azqmznkroi-hqtwogp completes the activity by him/herself with no assistance from a helper. 5-Set-up or Clean-up Assistance-helper sets up or cleans up; patient completes activity. [place] assists only prior to or following the activity. 4-Supervision or Touching Assistance-helper provides verbal cues and/or touching/steadying and/or contact guard assistance as patient completes activity. Assistance may be provided throughout the activity or intermittently. 3-Partial/Moderate Assistance-helper does LESS THAN HALF the effort. [place] lifts, holds or supports trunk or limbs, but provides less than half the effort. 2-Substantial/Maximal Assistance-helper does MORE THAN HALF the effort. [place] lifts or holds trunk or limbs and provides more than half the effort. 7-Dslsivldh-xfhzyq does ALL the effort. Patient does none of the effort to complete the activity. Or, the assistance of 2 or more helpers is required for the patient to complete the activity. If activity was not attempted, code reason: 7-Patient Refused. 9-Not Applicable-not attempted and the patient did not perform the activity before the current illness, exacerbation or injury. 10-Not Attempted due to Environmental Limitations-(lack of equipment, weather restraints, etc.). 88-Not Attempted due to Medical Conditions or Safety Concerns. Oral Hygiene (QC): 5 Shower/Bathe Self (QC): 4 Upper Body Dressing (QC): 3 Lower Body Dressing (QC): 4 On/Off Footwear: 4 Toileting Hygiene (QC): 4 Toilet Transfer (QC): 4 Pt requested using warm wash cloths to clean up while in chair due to doctors order to keep back brace on at all times. CGA for following precautions while bathing and drying self. Pt. min A for dressing upper body to maintain precautions. CGA required for lower body dressing. Sock aid and SBA required for donning slipper socks to maintain precautions. Pt. transferred to bathroom for oral hygiene using platform walker and SBA. Once at sink, pt. required set up assistance to brush teeth. Pt. ambulated to kitchen area for education on safety in kitchen while following spinal precautions. She completed simulated kitchen activities to practice new strategies to avoid breaking precautions. Pt indicated greater comfort with kitchen after activities. PT working with pt following OT session. All needs met. Education OT Patient Education: Disease process, Energy conservation, Modified ADL techniques, Progress toward Goal/Update tx plan, Purpose of tx/functional activities, Reviewed precautions, Rehab process, Safety issues, Use of adapted equipment Teaching Recipient: Patient Teaching Methods: Demonstration, Discussion Response to Teaching: Verbalize Understanding, Return Demonstration OT Short Term Goals Short Term Goals Time Frame: Oct 22, 2019 Eatin Oral hygiene: 4 (SBA) Toileting hygiene: 4 (SBA) Shower/bathe self: 3 (Min assist) Upper body dressin (SBA) Lower body dressin (SBA) Putting on/taking off footwear: 4 (SBA) OT Longterm Goals Survey Project Manager Goals Time Frame: Oct 29, 2019 Eating (QC): 6 Oral Hygiene (QC): 6 Toileting Hygiene (QC): 6 Shower/Bathe Self (QC): 5 Upper Body Dressing (QC): 6 Lower Body Dressing (QC): 6 On/Off Footwear (QC): 6 Additional Goals: 1-Demonstrate ADL Tasks, 2-Verbalize Understanding, 3- ImproveStrength/Kanwal 1=Demonstrate adherence to instructed precautions during ADL tasks. 2=Patient will verbalize/demonstrate understanding of assistive devices/modifications for ADL. 3=Patient will improve strength/tolerance for activity to enable patient to perform ADL's. OT Education/Plan Problem List/Assessment Assessment: Decreased Activ Tolerance, Decreased UE Strength, Dependent Transfers, Edema, Impaired Coordination, Impaired Funct Balance, Impaired I ADL's, Impaired Self-Care Skills, Restricted Funct UE ROM Discharge Recommendations Plan/Recommendations: Continue POC Therapy Discharge Recommendati: Home & Family, Post Acute OT Equpiment Recommendations-D/C: Wallpaper Printer, Bedside Commode, Sock Aide Comment Platform walker, pt requested bedside commode to place over toilet rather than toilet riser Treatment Plan/Plan of Care Treatment,Training & Education: Yes Patient would benefit from OT for education, treatment and training to promote independence in ADL's, mobility, safety and/or upper extremity function for ADL's. Plan of Care: ADL Retraining, Functional Mobility, Group Exercise/Act as Ind, UE Funct Exercise/Act Treatment Duration: Oct 29, 2019 Frequency: At least 5 of 7 days/Wk (IRF) Estimated Hrs Per Day: 1.5 hours per day Agreement: Yes Rehab Potential: Good Time/GCodes Start Time: 08:15 Stop Time: 09:15 Total Time Billed (hr/min): 60 Billed Treatment Time 1, ADL x 4 YASMINE DAILY OT Oct 21, 2019 09:29
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
--- NOTE | 2019-10-21 09:57 | Physical Therapy Daily Note ---
PT Daily Note-Current Subjective Pt laying Supine in bed upon arrival. Pt agrees to PT. Pt reports discomfort/weakness in R hip with extended walking but tolerable. Mental Status Patient Orientation: Person, Place, Time, Situation Attachments: Other-See Comments (Cervical Collar) Transfers SCALE: Activities may be completed with or without assistive devices. 2-Beppqlazkh-wxxynmv completes the activity by him/herself with no assistance from a helper. 5-Set-up or Clean-up Assistance-helper sets up or cleans up; patient completes activity. [place] [address] assists only prior to or following the activity. 4-Supervision or Touching Assistance-helper provides verbal cues and/or touching/steadying and/or contact guard assistance as patient completes activity. Assistance may be provided throughout the activity or intermittently. 3-Partial/Moderate Assistance-helper does LESS THAN HALF the effort. [place] [address] lifts, holds or supports trunk or limbs, but provides less than half the effort. 2-Substantial/Maximal Assistance-helper does MORE THAN HALF the effort. [address] [address] lifts or holds trunk or limbs and provides more than half the effort. 8-Rkzpzlqpr-xtkwsl does ALL the effort. Patient does none of the effort to complete the activity. Or, the assistance of 2 or more helpers is required for the patient to complete the activity. If activity was not attempted, code reason: 7-Patient Refused. 9-Not Applicable-not attempted and the patient did not perform the activity before the current illness, exacerbation or injury. 10-Not Attempted due to Environmental Limitations-(lack of equipment, weather restraints, etc.). 88-Not Attempted due to Medical Conditions or Safety Concerns. Sit to Stand (QC): 6 Toilet Transfer (QC): 6 Weight Bearing Right Lower Extremity: Right Full Weight Bearing Left Lower Extremity: Left Full Weight Bearing Gait Training Does the Patient Walk?: Yes Distance: 300 Walk 10 feet (QC): 5 Walk 50 ft with 2 Turns(QC): 5 Walk 150 ft (QC): 5 Gait Assistive Device: Walker Platform Exercises Standing: Hip Abduction, Hamstring curls, Heel/toe raises, Marching, Sit to Stand, Unilateral stance Standing Reps: 1 2 minutes per exercise NuStep Minutes: 15 NuStep Workload: 5 Treatments Pt amb to gym and performs NuStep prior to standing exercises. Pt amb to hallway and uses manager enrollment to grain picker objects around unit. Pt practices dynamic balance activity with dishes in kitchen area. Pt uses restroom and returns to the recli ner. Pt left with all needs met and call light in hand. Assessment Current Status: Excellent Progress Pt requires few rest breaks and has no LOB with balance activity. PT Short Term Goals Short Term Goals Time Frame: Oct 23, 2019 Sit to lyin Sit to stand: 4 Walk 150 feet: 4 4 steps: 4 PT Corrosion Technician Goals Corrosion Technician Goals PT [facility] Goals Time Frame: Nov 04, 2019 Roll Left & Right (QC): 6 Sit to Lying (QC): 6 Lying-Sitting on Side/Bed(QC): 6 Sit to Stand (QC): 6 Chair/Ozm-xa-Xaibg Xfer(QC): 6 Toilet Transfer (QC): 6 Car Transfer (QC): 6 Does the Patient Walk: Yes Walk 10 feet (QC): 6 Walk 50ft with 2 Turns (QC): 6 Walk 150 ft (QC): 6 Walking 10ft on Uneven Surface: 5 1 Step (curb) (QC): 6 4 Steps (QC): 5 12 Steps (QC): 5 Picking up an Object (QC): 88 (bending restrictions) Does the Pt use WC or Scooter?: No Wheel 50 feet with 2 turns (QC: 9 Wheel 150 feet: 9 PT Plan Treatment/Plan Treatment Plan: Continue Plan of Care Treatment Plan: Bed Mobility, Education, Functional Activity Kanwal, Functional Strength, Group Therapy, Gait, Safety, Therapeutic Exercise, Transfers Treatment Duration: Nov 04, 2019 Frequency: At least 5 of 7 days/Wk (IRF) Estimated Hrs Per Day: 1.5 hours per day Patient and/or Family Agrees t: Yes Safety Risks/Education Patient Education: Gait Training, Correct Positioning, Safety Issues Teaching Recipient: Patient Teaching Methods: Demonstration, Discussion Response to Teaching: Verbalize Understanding, Return Demonstration Time/GCodes Time In: 915 Time Out: 1015 Total Billed Treatment Time: 60 Total Billed Treatment 1, Ex x2 (30m), FA (15m), GT (15m) MARLYS AGUIRRE FIELD HOCKEY AND LACROSSE COACH Oct 21, 2019 09:57
--- NOTE | 2019-10-21 12:05 | NUR ---
PT LEFT FACILITY TO GO TO AN APPT WITH DR. SPARKS IN [place], ACCOMPANIED BY HER DAUGHTER
--- NOTE | 2019-10-21 14:45 | Physical Therapy Progress Note ---
Therapy Progress Note Pt is out of facility for Dr blancas. per Nursing. PT will resume Rx tomorrow (10/21). MARLYS AGUIRRE ELECTRIFIER OPERATOR Oct 21, 2019 14:45
--- NOTE | 2019-10-21 15:00 | NUR ---
PT RETURNED FROM DR FERRARI ACCOMPANIED BY DAUGHTER, SEE NURSING COMMUNICATION FOR ORDERS RECEIVED FROM DR. MENDES.
[2019-10-21] MEDS: VALACYCLOVIR 500 MG TAB (VALTREX) PO SCH (16:55)
[2019-10-21] MEDS: ENOXAPARIN 40 MG/0.4 ML (LOVENOX) SYR SC SCH (18:38)
[2019-10-21 18:44] VITALS: BP 161/73
--- NOTE | 2019-10-21 19:08 | NUR ---
bedside report received from KEYONNA PA, assume care of pt
[2019-10-21] MEDS: OXYBUTYNIN (DITROPAN) 5 MG TAB PO PRN (20:38)
[2019-10-21] MEDS: SIMvastatin 10 MG (ZOCOR) TAB PO SCH (20:38)
--- NOTE | 2019-10-21 20:38 | NUR ---
pt refused Colace, miralax & Senokot, stating had several stools today, took Ditropan 5mg, pt did not know needs to ask for it
[2019-10-22] MEDS: ACETAMINOPHEN 325 MG TABLET PO SCH ×4 (00:05→17:59)
[2019-10-22 05:26] VITALS: BP 132/63
[2019-10-22] MEDS: PANTOPRAZOLE 20 MG TABLET (PROTONIX) PO SCH (08:35)
[2019-10-22] MEDS: MONTELUKAST 10 MG (SINGULAIR) TAB PO SCH (08:35)
[2019-10-22] MEDS: GABAPENTIN 300 MG (NEURONTIN) CAP PO SCH ×2 (08:35→20:04)
[2019-10-22] MEDS: ASPIRIN E.C. 81 MG (ECOTRIN) TAB PO SCH (08:35)
[2019-10-22] MEDS: meTOproloL SUCCINATE 50 MG (TOPROL XL) TAB PO SCH (08:41)
[2019-10-22] MEDS: CELECOXIB 100 MG (CeleBREX) CAP PO SCH ×2 (08:41→20:04)
[2019-10-22] MEDS: lisINopril 5 MG (PRINIVIL) TABLET PO SCH (08:41)
[2019-10-22] MEDS: PARoxetine 10 MG (PAXIL) TAB PO SCH (08:41)
[2019-10-22] MEDS: polyethylene glycoL POWDER 17 GM (MIRALAX) PACK PO SCH ×2 (08:42→19:51)
[2019-10-22] MEDS: SENNA W/DOCUSATE (SENOKOT S) TABLET PO SCH ×2 (08:42→19:38)
[2019-10-22] MEDS: DOCUSATE SODIUM 100 MG (COLACE) CAP PO SCH ×2 (08:42→19:51)
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
--- NOTE | 2019-10-22 09:33 | Physical Therapy Daily Note ---
PT Daily Note-Current Subjective Pt sitting in recliner upon arrival. Pt agrees to PT and reports feeling better although still a little tightness in L wrist since cast removal. Pt reports she feels stronger today. Pain Numeric Pain Scale: 7 Location: Right, Left, Upper Location Body Site: Back Pain Description: Ache Comment: Pt reports pain in wrist & between Shoulder blades Mental Status Patient Orientation: Person Transfers SCALE: Activities may be completed with or without assistive devices. 9-Xgxjxywxlg-qzxvkqd completes the activity by him/herself with no assistance from a helper. 5-Set-up or Clean-up Assistance-helper sets up or cleans up; patient completes activity. [place] assists only prior to or following the activity. 4-Supervision or Touching Assistance-helper provides verbal cues and/or touching/steadying and/or contact guard assistance as patient completes activity. Assistance may be provided throughout the activity or intermittently. 3-Partial/Moderate Assistance-helper does LESS THAN HALF the effort. [place] lifts, holds or supports trunk or limbs, but provides less than half the effort. 2-Substantial/Maximal Assistance-helper does MORE THAN HALF the effort. [place] lifts or holds trunk or limbs and provides more than half the effort. 9-Vguazdshn-xucipr does ALL the effort. Patient does none of the effort to complete the activity. Or, the assistance of 2 or more helpers is required for the patient to complete the activity. If activity was not attempted, code reason: 7-Patient Refused. 9-Not Applicable-not attempted and the patient did not perform the activity before the current illness, exacerbation or injury. 10-Not Attempted due to Environmental Limitations-(lack of equipment, weather restraints, etc.). 88-Not Attempted due to Medical Conditions or Safety Concerns. Sit to Stand (QC): 5 Toilet Transfer (QC): 5 Weight Bearing Right Lower Extremity: Right Full Weight Bearing Left Lower Extremity: Left Full Weight Bearing Gait Training Does the Patient Walk?: Yes Distance: 150 Walk 10 feet (QC): 5 Walk 50 ft with 2 Turns(QC): 5 Walk 150 ft (QC): 5 Gait Persons Needed: 1 Gait Assistive Device: FWW Pt platform taken off of walker d/t cast removal on L hand. Exercises Seated Therapy Exercises: Long arc quads Standing: Hip Abduction, Hamstring curls, Heel/toe raises, Marching, Mini squats, Unilateral stance 2 mins each NuStep Minutes: 15 NuStep Workload: 5 Treatments Pt uses restroom in room prior to amb in hallway. Pt uses NuStep in gym 15 mins at WL of 5 prior to standing exercises. Pt performs seated exercises as well. Pt amb in hallway prior to returning to room with FWW. Pt left in recliner with all needs met, call light in hand. Assessment Current Status: Excellent Progress Pt requires few rest breaks and has no LOB during activities. PT Short Term Goals Short Term Goals Time Frame: Oct 23, 2019 Sit to lyin Sit to stand: 4 Walk 150 feet: 4 4 steps: 4 PT Cotton Stomper Goals Long-Term Goals PT Long-Term Goals Time Frame: Nov 04, 2019 Roll Left & Right (QC): 6 Sit to Lying (QC): 6 Lying-Sitting on Side/Bed(QC): 6 Sit to Stand (QC): 6 Chair/Jep-qe-Xzocn Xfer(QC): 6 Toilet Transfer (QC): 6 Car Transfer (QC): 6 Does the Patient Walk: Yes Walk 10 feet (QC): 6 Walk 50ft with 2 Turns (QC): 6 Walk 150 ft (QC): 6 Walking 10ft on Uneven Surface: 5 1 Step (curb) (QC): 6 4 Steps (QC): 5 12 Steps (QC): 5 Picking up an Object (QC): 88 (bending restrictions) Does the Pt use WC or Scooter?: No Wheel 50 feet with 2 turns (QC: 9 Wheel 150 feet: 9 PT Plan Problem List Problem List: Functional Strength Treatment/Plan Treatment Plan: Continue Plan of Care Treatment Plan: Bed Mobility, Education, Functional Activity Kanwal, Functional Strength, Group Therapy, Gait, Safety, Therapeutic Exercise, Transfers Treatment Duration: Nov 04, 2019 Frequency: At least 5 of 7 days/Wk (IRF) Estimated Hrs Per Day: 1.5 hours per day Patient and/or Family Agrees t: Yes Safety Risks/Education Patient Education: Gait Training, Correct Positioning, Safety Issues Teaching Recipient: Patient Teaching Methods: Demonstration, Discussion Response to Teaching: Verbalize Understanding, Return Demonstration Time/GCodes Time In: 900 Time Out: 1000 Total Billed Treatment Time: 60 Total Billed Treatment 1, Ex x2 (30m), GT x2 (30m) MARLYS AGUIRRE HOSPICE FELLOW Oct 22, 2019 09:33
--- NOTE | 2019-10-22 13:12 | Occupational Ther Daily Note ---
OT Current Status-Daily Note Subjective Pt. up in reclining chair when OT entered room. No c/o pain. Pt. reported that she was excited that the doctor cleared her wrist for weight bearing and wanted to work on her ROM in fingers and wrist now that bandages are removed. Mental Status/Objective Patient Orientation: Person, Place, Time, Situation Attachments: IV ADL-Treatment Therapy Code Descriptions/Definitions Functional [place] Measure: 0=Not Assessed/NA 4=Minimal Assistance 1=Total Assistance 5=Supervision or Setup 2=Maximal Assistance 6=Modified [place] 3=Moderate Assistance 7=Complete IndependenceSCALE: Activities may be completed with or without assistive devices. 2-Wpjujznwcs-hxasual completes the activity by him/herself with no assistance from a helper. 5-Set-up or Clean-up Assistance-helper sets up or cleans up; patient completes activity. [place] assists only prior to or following the activity. 4-Supervision or Touching Assistance-helper provides verbal cues and/or touching/steadying and/or contact guard assistance as patient completes act ivity. Assistance may be provided throughout the activity or intermittently. 3-Partial/Moderate Assistance-helper does LESS THAN HALF the effort. [place] lifts, holds or supports trunk or limbs, but provides less than half the effort. 2-Substantial/Maximal Assistance-helper does MORE THAN HALF the effort. [place] lifts or holds trunk or limbs and provides more than half the effort. 7-Mghkxiwwt-afbjnx does ALL the effort. Patient does none of the effort to complete the activity. Or, the assistance of 2 or more helpers is required for the patient to complete the activity. If activity was not attempted, code reason: 7-Patient Refused. 9-Not Applicable-not attempted and the patient did not perform the activity before the current illness, exacerbation or injury. 10-Not Attempted due to Environmental Limitations-(lack of equipment, weather restraints, etc.). 88-Not Attempted due to Medical Conditions or Safety Concerns. Oral Hygiene (QC): 6 Shower/Bathe Self (QC): 5 Upper Body Dressing (QC): 5 Lower Body Dressing (QC): 4 On/Off Footwear: 6 Pt requested washing her arms and leon area and changing clothes. Set up/ clean up assistance needed for bathing and drying. Pt able to dress UB with set up assistance. During LB dressing, the pt required SBA for safety while donning shaver ts. Pt is independent in doffing and donning slipper socks using sock aid. She reports that she should be receiving shoes today. Pt. ambulated to bathroom sink with walker. Pt. independent in oral hygiene while standing at sink with walker. Pt. ambulated to therapy gym with walker. Once in gym, she participated in 15 minutes of arm bike at minimal resistance to increase BUE ROM and overall endurance. Pt. then tolerated activity of manipulating balls of various sizes and textures between fingers to increase finger ROM, dexterity, and hand eye coordination. Pt. reported numbness in the small finger of left hand and noted difficulty maintaining grasp of smaller ball in opposition. Pt. tolerated 10 minute peg board activity and focused on fine motor in hands and finger strength. OT provided gentle massage to L hand after consulting nurse. Provided gentle touch to ventral side of hand, as well as outer edges of bruised and wounded area. Nursing changed bandages on wounds when OT finished. Using the walker, pt. ambulated to kitchen. Pt. required SBA to collect all items needed to pour herself a cup of coffee. Pt. up in reclining chair when OT left room. All needs met. Education OT Patient Education: Correct positioning, Exercise program, Modified ADL techniques, Progress toward Goal/Update tx plan, Purpose of tx/functional activities, Reviewed precautions, Rehab process, Transfer techniques Teaching Recipient: Patient Teaching Methods: Demonstration, Discussion Response to Teaching: Verbalize Understanding, Return Demonstration OT Short Term Goals Short Term Goals Time Frame: Oct 22, 2019 Eatin Oral hygiene: 4 (SBA) Toileting hygiene: 4 (SBA) Shower/bathe self: 3 (Min assist) Upper body dressin (SBA) Lower body dressin (SBA) Putting on/taking off footwear: 4 (SBA) OT Survey Superintendent Goals Survey Superintendent Goals Time Frame: Oct 29, 2019 Eating (QC): 6 Oral Hygiene (QC): 6 Toileting Hygiene (QC): 6 Shower/Bathe Self (QC): 5 Upper Body Dressing (QC): 6 Lower Body Dressing (QC): 6 On/Off Footwear (QC): 6 Additional Goals: 1-Demonstrate ADL Tasks, 2-Verbalize Understanding, 3- ImproveStrength/[place] 1=Demonstrate adherence to instructed precautions during ADL tasks. 2=Patient will verbalize/demonstrate understanding of assistive devices/modifications for ADL. 3=Patient will improve strength/tolerance for activity to enable patient to perform ADL's. OT Education/Plan Problem List/Assessment Assessment: Decreased Activ Tolerance, Decreased UE Strength, Impaired I ADL's, Impaired Self-Care Skills, Restricted Funct UE ROM Discharge Recommendations Plan/Recommendations: Continue POC Therapy Discharge Recommendati: Home & Family, Post Acute OT Equpiment Recommendations-D/C: Bedside Commode, Sock Aide, Walker Bag or Basket Treatment Plan/Plan of Care Treatment,Training & Education: Yes Patient would benefit from OT for education, treatment and training to promote independence in ADL's, mobility, safety and/or upper extremity function for ADL's. Plan of Care: ADL Retraining, Functional Mobility, Group Exercise/Act as Ind, UE Funct Exercise/Act Treatment Duration: Oct 29, 2019 Frequency: At least 5 of 7 days/Wk (IRF) Estimated Hrs Per Day: 1.5 hours per day Agreement: Yes Rehab Potential: Good Time/GCodes Start Time: 10:00 Stop Time: 11:30 Total Time Billed (hr/min): 90 Billed Treatment Time 1, ADL x 3 (45 minutes), FA x 2 (30 minutes), EX (15 minutes) YASMINE DAILY OT Oct 22, 2019 13:12
--- NOTE | 2019-10-22 14:01 | Physical Therapy Daily Note ---
PT Daily Note-Current Subjective Pt in bathroom upon arrival. Pt states pain 2/10 in mid back. Pain Numeric Pain Scale: 2 Location: Medial Location Body Site: Back Pain Description: Ache Mental Status Patient Orientation: Person, Place, Time, Situation Transfers SCALE: Activities may be completed with or without assistive devices. 0-Cnvsmiumwy-etwerpp completes the activity by him/herself with no assistance from a helper. 5-Set-up or Clean-up Assistance-helper sets up or cleans up; patient completes activity. [place] assists only prior to or following the activity. 4-Supervision or Touching Assistance-helper provides verbal cues and/or touching/steadying and/or contact guard assistance as patient completes activity. Assistance may be provided throughout the activity or intermittently. 3-Partial/Moderate Assistance-helper does LESS THAN HALF the effort. [place] lifts, holds or supports trunk or limbs, but provides less than half the effort. 2-Substantial/Maximal Assistance-helper does MORE THAN HALF the effort. [place] lifts or holds trunk or limbs and provides more than half the effort. 9-Yjajmsxft-lubucv does ALL the effort. Patient does none of the effort to complete the activity. Or, the assistance of 2 or more helpers is required for the patient to complete the activity. If activity was not attempted, code reason: 7-Patient Refused. 9-Not Applicable-not attempted and the patient did not perform the activity before the current illness, exacerbation or injury. 10-Not Attempted due to Environmental Limitations-(lack of equipment, weather restraints, etc.). 88-Not Attempted due to Medical Conditions or Safety Concerns. Sit to Stand (QC): 5 Toilet Transfer (QC): 5 Weight Bearing Right Lower Extremity: Right Full Weight Bearing Left Lower Extremity: Left Full Weight Bearing Gait Training Does the Patient Walk?: Yes Distance: 600 Walk 10 feet (QC): 5 Walk 50 ft with 2 Turns(QC): 5 Walk 150 ft (QC): 5 Gait Persons Needed: 1 Gait Assistive Device: FWW Stair Training Stair Training: Handrails/: 2 handrails #of Steps: 4 1 Step (curb) (QC): 5 4 Steps (QC): 5 12 Steps (QC): 5 Stairs: Pattern: Step to Treatments Pt uses restroom prior to amb to gym. Pt performs standing dynamic balance activities with kicking/ catching and throwing a ball. Pt performs stairs 4x3 and amb in hallway after. Pt returns to room with all needs met, call light in hand. Assessment Current Status: Excellent Progress Pt had no LOB during dynamic balance activities. Pt requires few seated rest breaks throughout tx. PT Short Term Goals Short Term Goals Time Frame: Oct 23, 2019 Sit to lyin Sit to stand: 4 Walk 150 feet: 4 4 steps: 4 PT Corporate Administrator Goals Snf Goals PT Corporate Administrator Goals Time Frame: Nov 04, 2019 Roll Left & Right (QC): 6 Sit to Lying (QC): 6 Lying-Sitting on Side/Bed(QC): 6 Sit to Stand (QC): 6 Chair/Kmt-jv-Wyvvz Xfer(QC): 6 Toilet Transfer (QC): 6 Car Transfer (QC): 6 Does the Patient Walk: Yes Walk 10 feet (QC): 6 Walk 50ft with 2 Turns (QC): 6 Walk 150 ft (QC): 6 Walking 10ft on Uneven Surface: 5 1 Step (curb) (QC): 6 4 Steps (QC): 5 12 Steps (QC): 5 Picking up an Object (QC): 88 (bending restrictions) Does the Pt use WC or Scooter?: No Wheel 50 feet with 2 turns (QC: 9 Wheel 150 feet: 9 PT Plan Problem List Problem List: Safety, Balance Treatment/Plan Treatment Plan: Continue Plan of Care Treatment Plan: Bed Mobility, Education, Functional Activity [place], Functional Strength, Group Therapy, Gait, Safety, Therapeutic Exercise, Transfers Treatment Duration: Nov 04, 2019 Frequency: At least 5 of 7 days/Wk (IRF) Estimated Hrs Per Day: 1.5 hours per day Patient and/or Family Agrees t: Yes Safety Risks/Education Patient Education: Gait Training, Steps, Correct Positioning, Safety Issues Teaching Recipient: Patient, Family Teaching Methods: Demonstration, Discussion Response to Teaching: Verbalize Understanding, Return Demonstration Time/GCodes Time In: 1300 Time Out: 1330 Total Billed Treatment Time: 30 Total Billed Treatment 1, FA (15m), NM (15m) MARLYS AGUIRRE PTA Oct 22, 2019 14:01
[2019-10-22] MEDS ORDERED: PREN-8 PO (14:43)
[2019-10-22] MEDS ORDERED: CALC117719 PO (14:43)
[2019-10-22] MEDS ORDERED: NFBIOT1000 PO (14:43)
--- NOTE | 2019-10-22 15:33 | NUR ---
CM/SS PATIENT CARE CONFERENCE Reviewed Summary with patient, she is in agreement for continued stay and next review 10/28/19. Patient pleased with results of her follow up visit with Dr. Margarito Guerra yesterday, she reports he indicated her fracture was the old one and has removed the splinting.
[2019-10-22 18:00] VITALS: BP 120/59
[2019-10-22] MEDS: ENOXAPARIN 40 MG/0.4 ML (LOVENOX) SYR SC SCH (18:00)
[2019-10-22] MEDS: SIMvastatin 10 MG (ZOCOR) TAB PO SCH (20:04)
[2019-10-22] MEDS: OXYBUTYNIN (DITROPAN) 5 MG TAB PO PRN (20:05)
[2019-10-23] MEDS: ACETAMINOPHEN 325 MG TABLET PO SCH ×5 (00:17→23:41)
[2019-10-23 05:10] VITALS: BP 119/57
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
[2019-10-23 10:00] VITALS: BP 129/72
--- NOTE | 2019-10-23 10:01 | Physical Therapy Daily Note ---
PT Daily Note-Current Subjective Pt in recliner upon arrival and agrees to tx. Pt states her neck feels tired and her L hip feels weak today. Mental Status Patient Orientation: Person, Place, Time, Situation Attachments: Other-See Comments ([place] Cervical brace) Transfers SCALE: Activities may be completed with or without assistive devices. 1-Xudxngyvbf-hcxeudt completes the activity by him/herself with no assistance from a helper. 5-Set-up or Clean-up Assistance-helper sets up or cleans up; patient completes activity. [place] assists only prior to or following the activity. 4-Supervision or Touching Assistance-helper provides verbal cues and/or touching/steadying and/or contact guard assistance as patient completes activity. Assistance may be provided throughout the activity or intermittently. 3-Partial/Moderate Assistance-helper does LESS THAN HALF the effort. [place] lif ts, holds or supports trunk or limbs, but provides less than half the effort. 2-Substantial/Maximal Assistance-helper does MORE THAN HALF the effort. [place] lifts or holds trunk or limbs and provides more than half the effort. 1-Xavarkrtp-eupkzv does ALL the effort. Patient does none of the effort to complete the activity. Or, the assistance of 2 or more helpers is required for the patient to complete the activity. If activity was not attempted, code reason: 7-Patient Refused. 9-Not Applicable-not attempted and the patient did not perform the activity before the current illness, exacerbation or injury. 10-Not Attempted due to Environmental Limitations-(lack of equipment, weather restraints, etc.). 88-Not Attempted due to Medical Conditions or Safety Concerns. Roll Left & Right (QC): 6 Sit to Lying (QC): 6 Lying to Sitting/Side of Bed(Q: 6 Sit to Stand (QC): 6 Chair/Hof-gr-Wgvem Xfer(QC): 6 Weight Bearing Right Lower Extremity: Right Full Weight Bearing Left Lower Extremity: Left Full Weight Bearing Gait Training Does the Patient Walk?: Yes Distance: 600 Walk 10 feet (QC): 5 Walk 50 ft with 2 Turns(QC): 5 Gait Persons Needed: 1 Gait Assistive Device: FWW Nearing up ad sophie status Exercises Seated Therapy Exercises: Long arc quads, Glut set Seated Reps: 1 Standing: Hip Abduction, Hamstring curls, Heel/toe raises, Marching Standing Reps: 1 Did each exercise for 2 minutes. NuStep Minutes: 15 NuStep Workload: 5 Treatments Pt performed bed mobility and made bed. Pt amb in hallway prior to going to gym. Pt uses NuStep followed by standing exercises. Pt performs seated exercises then amb in hallway back to room. Pt left in recliner with all needs met, call light in hand. Assessment Current Status: Excellent Progress Pt requires few rest breaks and has no LOB with activity. PT Short Term Goals Short Term Goals Time Frame: Oct 23, 2019 Sit to lyin Sit to stand: 4 Walk 150 feet: 4 4 steps: 4 PT Fdc Goals Machine Oiler Goals PT Fdc Goals Time Frame: Nov 04, 2019 Roll Left & Right (QC): 6 Sit to Lying (QC): 6 Lying-Sitting on Side/Bed(QC): 6 Sit to Stand (QC): 6 Chair/Bob-hy-Ihotf Xfer(QC): 6 Toilet Transfer (QC): 6 Car Transfer (QC): 6 Does the Patient Walk: Yes Walk 10 feet (QC): 6 Walk 50ft with 2 Turns (QC): 6 Walk 150 ft (QC): 6 Walking 10ft on Uneven Surface: 5 1 Step (curb) (QC): 6 4 Steps (QC): 5 12 Steps (QC): 5 Picking up an Object (QC): 88 (bending restrictions) Does the Pt use WC or Scooter?: No Wheel 50 feet with 2 turns (QC: 9 Wheel 150 feet: 9 PT Plan Treatment/Plan Treatment Plan: Continue Plan of Care Treatment Plan: Bed Mobility, Education, Functional Activity Kan[place], Functional Strength, Group Therapy, Gait, Safety, Therapeutic Exercise, Transfers Treatment Duration: Nov 04, 2019 Frequency: At least 5 of 7 days/Wk (IRF) Estimated Hrs Per Day: 1.5 hours per day Patient and/or Family Agrees t: Yes Safety Risks/Education Patient Education: Gait Training, Correct Positioning, Safety Issues Teaching Recipient: Patient Teaching Methods: Demonstration, Discussion Response to Teaching: Verbalize Understanding, Return Demonstration Time/GCodes Time In: 900 Time Out: 1000 Total Billed Treatment Time: 60 Total Billed Treatment 1, Ex x2 (30m), GT x2 (30m) ALBA SNELL COTTON WRINGER Oct 23, 2019 10:01
[2019-10-23] MEDS: DOCUSATE SODIUM 100 MG (COLACE) CAP PO SCH ×2 (10:13→20:34)
[2019-10-23] MEDS: polyethylene glycoL POWDER 17 GM (MIRALAX) PACK PO SCH ×2 (10:13→20:34)
[2019-10-23] MEDS: MONTELUKAST 10 MG (SINGULAIR) TAB PO SCH (10:14)
[2019-10-23] MEDS: PANTOPRAZOLE 20 MG TABLET (PROTONIX) PO SCH (10:14)
[2019-10-23] MEDS: ASPIRIN E.C. 81 MG (ECOTRIN) TAB PO SCH (10:14)
[2019-10-23] MEDS: lisINopril 5 MG (PRINIVIL) TABLET PO SCH (10:14)
[2019-10-23] MEDS: SENNA W/DOCUSATE (SENOKOT S) TABLET PO SCH ×2 (10:14→20:34)
[2019-10-23] MEDS: meTOproloL SUCCINATE 50 MG (TOPROL XL) TAB PO SCH (10:14)
[2019-10-23] MEDS: PARoxetine 10 MG (PAXIL) TAB PO SCH (10:15)
[2019-10-23] MEDS: GABAPENTIN 300 MG (NEURONTIN) CAP PO SCH ×2 (10:15→20:33)
[2019-10-23] MEDS: CELECOXIB 100 MG (CeleBREX) CAP PO SCH ×2 (10:15→20:34)
--- NOTE | 2019-10-23 10:40 | Occupational Ther Daily Note ---
OT Current Status-Daily Note Subjective Pt up in reclining chair when therapy entered room. No c/o pain. Pt. reported that her L hand is feeling good and that she is beginning to have some feeling returning in small finger. Mental Status/Objective Patient Orientation: Person, Place, Time, Situation Attachments: IV ADL-Treatment Therapy Code Descriptions/Definitions Functional [place] Measure: 0=Not Assessed/NA 4=Minimal Assistance 1=Total Assistance 5=Supervision or Setup 2=Maximal Assistance 6=Modified [place] 3=Moderate Assistance 7=Complete IndependenceSCALE: Activities may be completed with or without assistive devices. 0-Ntscsnzlua-znmahqz completes the activity by him/herself with no assistance from a helper. 5-Set-up or Clean-up Assistance-helper sets up or cleans up; patient completes activity. [place] assists only prior to or following the activity. 4-Supervision or Touching Assistance-helper provides verbal cues and/or touching/steadying and/or contact guard assistance as patient completes activity. Assistance may be provided throughout the activity or intermittently. 3-Partial/Moderate Assistance-helper does LESS THAN HALF the effort. [place] lifts, holds or supports trunk or limbs, but provides less than half the effort. 2-Substantial/Maximal Assistance-helper does MORE THAN HALF the effort. [place] lifts or holds trunk or limbs and provides more than half the effort. 2-Xkqwbjmln-xkqbdx does ALL the effort. Patient does none of the effort to complete the activity. Or, the assistance of 2 or more helpers is required for the patient to complete the activity. If activity was not attempted, code reason: 7-Patient Refused. 9-Not Applicable-not attempted and the patient did not perform the activity before the current illness, exacerbation or injury. 10-Not Attempted due to Environmental Limitations-(lack of equipment, weather restraints, etc.). 88-Not Attempted due to Medical Conditions or Safety Concerns. Oral Hygiene (QC): 6 Shower/Bathe Self (QC): 5 Upper Body Dressing (QC): 3 Lower Body Dressing (QC): 4 On/Off Footwear: 4 (Pt required verbal cue to use shoe horn for the first time) Toileting Hygiene (QC): 6 Toilet Transfer (QC): 4 Pt requested cleaning and getting dressed this am. Pt. able to bathe and dry self with set up/ clean up assistance. She dressed UB with min A for back brace. LB dressing CGA for safety. Pt. required SBA for cues to use shoe horn while donning tennis shoes for the first time since injury. SBA was required for ambulation to bathroom with walker. Pt independently completed leon hygiene after toileting. Pt. ambulated to sink with SBA to wash hands and brush teeth independently. Walker and SBA required to ambulate to therapy gym. Pt. participated in 15 minutes of arm bessy activity to increase BUE ROM, improve sitting tolerance while minimally supported, and to increase overall activity tolerance. Fine motor coordination, ROM, and hand eye coordination were worked on during 15 minute bead threading activity. Pt. able to manipulate pony beads with L hand in order to remove them from a small container and align them to thread on thin string. Pt. ambulated back to room with walker and was in reclining chair with call light and phone within reach when OT left. All needs met. Education OT Patient Education: Correct positioning, Modified ADL techniques, Progress toward Goal/Update tx plan, Purpose of tx/functional activities, Reviewed p recautions, Rehab process Teaching Recipient: Patient Teaching Methods: Demonstration, Discussion Response to Teaching: Verbalize Understanding, Return Demonstration OT Short Term Goals Short Term Goals Time Frame: Oct 22, 2019 Eatin Oral hygiene: 4 (SBA) Toileting hygiene: 4 (SBA) Shower/bathe self: 3 (Min assist) Upper body dressin (SBA) Lower body dressin (SBA) Putting on/taking off footwear: 4 (SBA) OT Body Finisher Goals Care Home Goals Time Frame: Oct 29, 2019 Eating (QC): 6 Oral Hygiene (QC): 6 Toileting Hygiene (QC): 6 Shower/Bathe Self (QC): 5 Upper Body Dressing (QC): 6 Lower Body Dressing (QC): 6 On/Off Footwear (QC): 6 Additional Goals: 1-Demonstrate ADL Tasks, 2-Verbalize Understanding, 3- ImproveStrength/[place] 1=Demonstrate adherence to instructed precautions during ADL tasks. 2=Patient will verbalize/demonstrate understanding of assistive devices/modifications for ADL. 3=Patient will improve strength/tolerance for activity to enable patient to perform ADL's. OT Education/Plan Problem List/Assessment Assessment: Decreased Activ Tolerance, Decreased UE Strength, Impaired I ADL's, Impaired Self-Care Skills, Restricted Funct UE ROM Discharge Recommendations Plan/Recommendations: Continue POC Therapy Discharge Recommendati: Home & Family, Post Acute OT Treatment Plan/Plan of Care Treatment,Training & Education: Yes Patient would benefit from OT for education, treatment and training to promote independence in ADL's, mobility, safety and/or upper extremity function for ADL's. Plan of Care: ADL Retraining, Functional Mobility, Group Exercise/Act as Ind, UE Funct Exercise/Act Treatment Duration: Oct 29, 2019 Frequency: At least 5 of 7 days/Wk (IRF) Estimated Hrs Per Day: 1.5 hours per day Agreement: Yes Rehab Potential: Good Time/GCodes Start Time: 08:00 Stop Time: 09:00 Total Time Billed (hr/min): 60 Billed Treatment Time 1, ADL x2 (30 minutes), FA x 2 (30 minutes) ELEONORA SHAH OT Oct 23, 2019 10:40
--- NOTE | 2019-10-23 11:01 | Occupational Ther Daily Note ---
OT Current Status-Daily Note Subjective Pt. up in reclining chair when therapy entered room. Pt. reported pain at 3/10 located in upper back. Mental Status/Objective Patient Orientation: Person, Place, Time, Situation Attachments: IV ADL-Treatment Therapy Code Descriptions/Definitions Functional [place] Measure: 0=Not Assessed/NA 4=Minimal Assistance 1=Total Assistance 5=Supervision or Setup 2=Maximal Assistance 6=Modified [place] 3=Moderate Assistance 7=Complete IndependenceSCALE: Activities may be completed with or without assistive devices. 2-Chihbkogef-wpecbdd completes the activity by him/herself with no assistance from a helper. 5-Set-up or Clean-up Assistance-helper sets up or cleans up; patient completes activity. [place] assists only prior to or following the activity. 4-Supervision or Touching Assistance-helper provides verbal cues and/or touching/steadying and/or contact guard assistance as patient completes act ivity. Assistance may be provided throughout the activity or intermittently. 3-Partial/Moderate Assistance-helper does LESS THAN HALF the effort. [place] lifts, holds or supports trunk or limbs, but provides less than half the effort. 2-Substantial/Maximal Assistance-helper does MORE THAN HALF the effort. [place] lifts or holds trunk or limbs and provides more than half the effort. 9-Molxjztbv-keimbw does ALL the effort. Patient does none of the effort to complete the activity. Or, the assistance of 2 or more helpers is required for the patient to complete the activity. If activity was not attempted, code reason: 7-Patient Refused. 9-Not Applicable-not attempted and the patient did not perform the activity before the current illness, exacerbation or injury. 10-Not Attempted due to Environmental Limitations-(lack of equipment, weather restraints, etc.). 88-Not Attempted due to Medical Conditions or Safety Concerns. Eating (QC): 6 On/Off Footwear: 5 Toileting Hygiene (QC): 6 Toilet Transfer (QC): 4 Pt. requested using restroom when OT entered room. SBA and walker required to ambulate to bathroom. Pt. independent in toilet hygiene and hand washing. Pt. ambulated to kitchen and poured herself a glass of water with SBA. OT carried water cup back to room while pt ambulated with walker. Pt. collected all her dirty clothes and placed them on walker to ambulate to laundry machine. Pt. reports that her washer and dryer match those on ARU. Pt. required min A for laundry due to inability to pull handle that starts machine. Pt. asked to open dryer and retrieve piece of clothing and was able to complete task while observing precautions. Pt. returned to room and was in reclining chair with call light and phone within reach when therapy left room. All needs met. Education OT Patient Education: Correct positioning, Energy conservation, Modified ADL techniques, Progress toward Goal/Update tx plan, Purpose of tx/functional activities, Reviewed precautions, Rehab process, Transfer techniques Teaching Recipient: Patient Teaching Methods: Demonstration, Discussion Response to Teaching: Verbalize Understanding, Return Demonstration OT Short Term Goals Short Term Goals Time Frame: Oct 22, 2019 Eatin Oral hygiene: 4 (SBA) Toileting hygiene: 4 (SBA) Shower/bathe self: 3 (Min assist) Upper body dressin (SBA) Lower body dressin (SBA) Putting on/taking off footwear: 4 (SBA) OT Fdc Goals Fdc Goals Time Frame: Oct 29, 2019 Eating (QC): 6 Oral Hygiene (QC): 6 Toileting Hygiene (QC): 6 Shower/Bathe Self (QC): 5 Upper Body Dressing (QC): 6 Lower Body Dressing (QC): 6 On/Off Footwear (QC): 6 Additional Goals: 1-Demonstrate ADL Tasks, 2-Verbalize Understanding, 3-Improve Strength/[place] 1=Demonstrate adherence to instructed precautions during ADL tasks. 2=Patient will verbalize/demonstrate understanding of assistive devices/modifications for ADL. 3=Patient will improve strength/tolerance for activity to enable patient to pe rform ADL's. OT Education/Plan Problem List/Assessment Assessment: Decreased Activ Tolerance, Decreased UE Strength, Impaired I ADL's, Impaired Self-Care Skills, Restricted Funct UE ROM Discharge Recommendations Plan/Recommendations: Continue POC Therapy Discharge Recommendati: Home & Family, Post Acute OT Treatment Plan/Plan of Care Treatment,Training & Education: Yes Patient would benefit from OT for education, treatment and training to promote independence in ADL's, mobility, safety and/or upper extremity function for ADL's. Plan of Care: ADL Retraining, Functional Mobility, Group Exercise/Act as Ind, UE Funct Exercise/Act Treatment Duration: Oct 29, 2019 Frequency: At least 5 of 7 days/Wk (IRF) Estimated Hrs Per Day: 1.5 hours per day Agreement: Yes Rehab Potential: Good Time/GCodes Start Time: 10:00 Stop Time: 10:30 Total Time Billed (hr/min): 30 Billed Treatment Time 1, ADL x2 (30 minutes) ELEONORA SHAH OT Oct 23, 2019 11:01
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
--- NOTE | 2019-10-23 13:34 | Physical Therapy Daily Note ---
PT Daily Note-Current Subjective Pt in recliner upon arrival. Pt states pain 5/10 in back/neck Pain Numeric Pain Scale: 5-Moderate Pain Location: Medial Location Body Site: Neck Pain Description: Ache Mental Status Patient Orientation: Person, Place, Time, Situation Attachments: Other-See Comments (Cervical brace) Transfers SCALE: Activities may be completed with or without assistive devices. 4-Fmvnjbqjgd-mnaathk completes the activity by him/herself with no assistance from a helper. 5-Set-up or Clean-up Assistance-helper sets up or cleans up; patient completes activity. [place] assists only prior to or following the activity. 4-Supervision or Touching Assistance-helper provides verbal cues and/or touching/steadying and/or contact guard assistance as patient completes activity. Assistance may be provided throughout the activity or intermittently. 3-Partial/Moderate Assistance-helper does LESS THAN HALF the effort. [place] lifts, holds or supports trunk or limbs, but provides less than half the effort. 2-Substantial/Maximal Assistance-helper does MORE THAN HALF the effort. [place] lifts or holds trunk or limbs and provides more than half the effort. 8-Znuxrlapo-kwgovw does ALL the effort. Patient does none of the effort to complete the activity. Or, the assistance of 2 or more helpers is required for the patient to complete the activity. If activity was not attempted, code reason: 7-Patient Refused. 9-Not Applicable-not attempted and the patient did not perform the activity before the current illness, exacerbation or injury. 10-Not Attempted due to Environmental Limitations-(lack of equipment, weather restraints, etc.). 88-Not Attempted due to Medical Conditions or Safety Concerns. Car Transfer (QC): 6 Pt Mod I with all transfers. Weight Bearing Right Lower Extremity: Right Full Weight Bearing Left Lower Extremity: Left Full Weight Bearing Gait Training Does the Patient Walk?: Yes Distance: 400 Walk 10 feet (QC): 5 Walk 50 ft with 2 Turns(QC): 5 Walk 150 ft (QC): 5 Gait Assistive Device: FWW Stair Training Stair Training: Handrails/: 2 handrails #of Steps: 4 1 Step (curb) (QC): 5 4 Steps (QC): 5 12 Steps (QC): 5 Pt did 4 steps x4 Treatments Pt uses restroom prior to amb. and I with toileting. Pt amb in hallway and to car to practice car transfers and was I with transfer. Pt amb into gym and uses stairs 4 steps x4. Pt amb in hallway and practices gait forward, backward, side to side, and in a fig 8 pattern with FWW. Pt is now ad sophie in room with use of FWW. Pt returned to recliner and was left with all needs met, call light in hand. Assessment Current Status: Excellent Progress Pt has no LOB during gait challenges and requires few rest breaks. PT Short Term Goals Short Term Goals Time Frame: Oct 23, 2019 Sit to lyin Sit to stand: 4 Walk 150 feet: 4 4 steps: 4 PT [facility] Goals [facility]ci Goals PT Movers Goals Time Frame: Nov 04, 2019 Roll Left & Right (QC): 6 Sit to Lying (QC): 6 Lying-Sitting on Side/Bed(QC): 6 Sit to Stand (QC): 6 Chair/Max-he-Zpgyq Xfer(QC): 6 Toilet Transfer (QC): 6 Car Transfer (QC): 6 Does the Patient Walk: Yes Walk 10 feet (QC): 6 Walk 50ft with 2 Turns (QC): 6 Walk 150 ft (QC): 6 Walking 10ft on Uneven Surface: 5 1 Step (curb) (QC): 6 4 Steps (QC): 5 12 Steps (QC): 5 Picking up an Object (QC): 88 (bending restrictions) Does the Pt use WC or Scooter?: No Wheel 50 feet with 2 turns (QC: 9 Wheel 150 feet: 9 PT Plan Treatment/Plan Treatment Plan: Continue Plan of Care Treatment Plan: Bed Mobility, Education, Functional Activity Kanwal, Functional Strength, Group Therapy, Gait, Safety, Therapeutic Exercise, Transfers Treatment Duration: Nov 04, 2019 Frequency: At least 5 of 7 days/Wk (IRF) Estimated Hrs Per Day: 1.5 hours per day Patient and/or Family Agrees t: Yes Safety Risks/Education Patient Education: Gait Training, Steps, Correct Positioning, Safety Issues Teaching Recipient: Patient Teaching Methods: Discussion Response to Teaching: Verbalize Understanding Time/GCodes Time In: 1300 Time Out: 1330 Total Billed Treatment Time: 30 Total Billed Treatment 1, FA x2 (30m) ALBA SNELL MATERIAL PLANNER Oct 23, 2019 13:34
--- NOTE | 2019-10-23 13:43 | NUR ---
"RD ASSESSMENT PMHx: HTN; GERD; hiatal hernia; HLD PT INTERACTION: Pt was awake and pleasant during nutrition follow-up. Pt states she has been eating well since last assessment. Note avg PO intake >90% x4d, per chart review. Pt states no issues with nausea, vomiting, constipation, or diarrhea since last assessment. Note last BM was 10/21, and pt currently on bowel regimen of colace BID; senna BID; and miralax BID; per chart review. ABNORMAL NUTRITION-RELATED LAB VALUES LOW: Pro 6.3 HIGH: Cl 108; BUN 28 Est. kcal needs: 1575 kcal | 20 kcal/kg Est. Pro needs: 63 g Pro | 0.8 g Pro/kg PES STATEMENT: Given current PO intake, no nutrition diagnosis at this time (NO-1.1) INTERVENTION: Continue with current diet order of Regular diet. Will continue to follow and reassess as pt needs, intake, and status change. MONITOR/EVALUATE: PO Intake; Plan of Care; Hydration Status; Weight Status; Lab Values Candida Lock, MS, RD, LD"
[2019-10-23 16:01] VITALS: BP 113/54
[2019-10-23] MEDS: VALACYCLOVIR 500 MG TAB (VALTREX) PO SCH (17:23)
[2019-10-23] MEDS: ENOXAPARIN 40 MG/0.4 ML (LOVENOX) SYR SC SCH (17:23)
[2019-10-23] MEDS: SIMvastatin 10 MG (ZOCOR) TAB PO SCH (20:33)
[2019-10-23] MEDS: OXYBUTYNIN (DITROPAN) 5 MG TAB PO PRN (20:33)
[2019-10-24] MEDS: ACETAMINOPHEN 325 MG TABLET PO SCH ×3 (05:02→17:54)
[2019-10-24 06:13] VITALS: BP 126/59
[2019-10-24 08:47] VITALS: BP 120/57
[2019-10-24] MEDS: MONTELUKAST 10 MG (SINGULAIR) TAB PO SCH (08:49)
[2019-10-24] MEDS: ASPIRIN E.C. 81 MG (ECOTRIN) TAB PO SCH (08:49)
[2019-10-24] MEDS: PANTOPRAZOLE 20 MG TABLET (PROTONIX) PO SCH (08:49)
[2019-10-24] MEDS: OXYBUTYNIN (DITROPAN) 5 MG TAB PO PRN ×2 (08:49→21:03)
[2019-10-24] MEDS: PARoxetine 10 MG (PAXIL) TAB PO SCH (08:49)
[2019-10-24] MEDS: GABAPENTIN 300 MG (NEURONTIN) CAP PO SCH ×2 (08:49→21:03)
[2019-10-24] MEDS: CELECOXIB 100 MG (CeleBREX) CAP PO SCH ×2 (08:49→21:03)
[2019-10-24] MEDS: meTOproloL SUCCINATE 50 MG (TOPROL XL) TAB PO SCH (08:49)
[2019-10-24] MEDS: lisINopril 5 MG (PRINIVIL) TABLET PO SCH (08:49)
[2019-10-24] MEDS: polyethylene glycoL POWDER 17 GM (MIRALAX) PACK PO SCH ×2 (09:00→21:03)
[2019-10-24] MEDS: DOCUSATE SODIUM 100 MG (COLACE) CAP PO SCH ×2 (09:00→21:03)
[2019-10-24] MEDS: SENNA W/DOCUSATE (SENOKOT S) TABLET PO SCH ×2 (09:00→21:04)
--- NOTE | 2019-10-24 09:31 | Physical Therapy Daily Note ---
PT Daily Note-Current Subjective Pt up in recliner upon arrival. Agrees to PT treatment. Pain Numeric Pain Scale: 6 Location Body Site: Back Comment: c/o pain after completing ambulation Mental Status Patient Orientation: Person, Place, Time, Situation Attachments: Other-See Comments (Cervical Brace) Transfers SCALE: Activities may be completed with or without assistive devices. 9-Iqfrjkuzkv-ilxeoqt completes the activity by him/herself with no assistance from a helper. 5-Set-up or Clean-up Assistance-helper sets up or cleans up; patient completes activity. [place] assists only prior to or following the activity. 4-Supervision or Touching Assistance-helper provides verbal cues and/or touching/steadying and/or contact guard assistance as patient completes activity. Assistance may be provided throughout the activity or intermittently. 3-Partial/Moderate Assistance-helper does LESS THAN HALF the effort. [place] lifts, holds or supports trunk or limbs, but provides less than half the effort. 2-Substantial/Maximal Assistance-helper does MORE THAN HALF the effort. [place] lifts or holds trunk or limbs and provides more than half the effort. 8-Mjobzqkke-kcggfb does ALL the effort. Patient does none of the effort to complete the activity. Or, the assistance of 2 or more helpers is required for the patient to complete the activity. If activity was not attempted, code reason: 7-Patient Refused. 9-Not Applicable-not attempted and the patient did not perform the activity before the current illness, exacerbation or injury. 10-Not Attempted due to Environmental Limitations-(lack of equipment, weather restraints, etc.). 88-Not Attempted due to Medical Conditions or Safety Concerns. Sit to Stand (QC): 6 Weight Bearing Right Lower Extremity: Right Full Weight Bearing Left Lower Extremity: Left Full Weight Bearing Gait Training Does the Patient Walk?: Yes Distance: 350' x2 Walk 10 feet (QC): 6 Walk 150 ft (QC): 6 Gait Persons Needed: 1 Gait Assistive Device: FWW Pt AD sophie Exercises Seated Therapy Exercises: Sit to stand (10 x2) Treatments Pt transfers sit<>stand transfers Independently. Pt ambulates w/ FWW on unit. Pt in recliner at end of tx w/ bed side table and call light w/in reach, w/ all needs met. Assessment Current Status: Good Progress Pt motivated and in a pleasant mood. PT Short Term Goals Short Term Goals Time Frame: Oct 23, 2019 Sit to lyin Sit to stand: 4 Walk 150 feet: 4 4 steps: 4 PT Pearl Restorer Goals Long-Term Goals PT Pearl Restorer Goals Time Frame: Nov 04, 2019 Roll Left & Right (QC): 6 Sit to Lying (QC): 6 Lying-Sitting on Side/Bed(QC): 6 Sit to Stand (QC): 6 Chair/Tav-pz-Xjqnp Xfer(QC): 6 Toilet Transfer (QC): 6 Car Transfer (QC): 6 Does the Patient Walk: Yes Walk 10 feet (QC): 6 Walk 50ft with 2 Turns (QC): 6 Walk 150 ft (QC): 6 Walking 10ft on Uneven Surface: 5 1 Step (curb) (QC): 6 4 Steps (QC): 5 12 Steps (QC): 5 Picking up an Object (QC): 88 (bending restrictions) Does the Pt use WC or Scooter?: No Wheel 50 feet with 2 turns (QC: 9 Wheel 150 feet: 9 PT Plan Problem List Problem List: Safety, Balance, Gait, Transfer Treatment/Plan Treatment Plan: Continue Plan of Care Treatment Plan: Bed Mobility, Education, Functional Activity Kanwal, Functional Strength, Group Therapy, Gait, Safety, Therapeutic Exercise, Transfers Treatment Duration: Nov 04, 2019 Frequency: At least 5 of 7 days/Wk (IRF) Estimated Hrs Per Day: 1.5 hours per day Patient and/or Family Agrees t: Yes Safety Risks/Education Patient Education: Gait Training, Safety Issues Teaching Recipient: Patient Teaching Methods: Discussion Response to Teaching: Verbalize Understanding Time/GCodes Time In: 0759 Time Out: 0820 Total Billed Treatment Time: 21 Total Billed Treatment 1, GT 21m ARA MARTÍNEZ BRASSIERE CUP MOLD CUTTER Oct 24, 2019 09:31
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
[2019-10-24 16:00] VITALS: BP 117/58
[2019-10-24] MEDS: ENOXAPARIN 40 MG/0.4 ML (LOVENOX) SYR SC SCH (17:55)
[2019-10-24] MEDS: SIMvastatin 10 MG (ZOCOR) TAB PO SCH (21:03)
[2019-10-25] MEDS: ACETAMINOPHEN 325 MG TABLET PO SCH ×5 (00:15→23:33)
[2019-10-25 05:01] VITALS: BP 108/55
[2019-10-25] MEDS: DOCUSATE SODIUM 100 MG (COLACE) CAP PO SCH ×2 (09:00→20:58)
[2019-10-25] MEDS: polyethylene glycoL POWDER 17 GM (MIRALAX) PACK PO SCH ×2 (09:00→20:58)
[2019-10-25] MEDS: SENNA W/DOCUSATE (SENOKOT S) TABLET PO SCH ×2 (09:00→20:59)
[2019-10-25] MEDS: ASPIRIN E.C. 81 MG (ECOTRIN) TAB PO SCH (09:27)
[2019-10-25] MEDS: meTOproloL SUCCINATE 50 MG (TOPROL XL) TAB PO SCH (09:28)
[2019-10-25] MEDS: GABAPENTIN 300 MG (NEURONTIN) CAP PO SCH ×2 (09:28→20:58)
[2019-10-25] MEDS: lisINopril 5 MG (PRINIVIL) TABLET PO SCH (09:28)
[2019-10-25] MEDS: OXYBUTYNIN (DITROPAN) 5 MG TAB PO PRN ×2 (09:28→20:58)
[2019-10-25] MEDS: PARoxetine 10 MG (PAXIL) TAB PO SCH (09:28)
[2019-10-25] MEDS: CELECOXIB 100 MG (CeleBREX) CAP PO SCH ×2 (09:28→20:58)
[2019-10-25] MEDS: MONTELUKAST 10 MG (SINGULAIR) TAB PO SCH (09:28)
[2019-10-25] MEDS: PANTOPRAZOLE 20 MG TABLET (PROTONIX) PO SCH (09:28)
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
[2019-10-25 16:59] VITALS: BP 113/55
[2019-10-25 17:00] VITALS: BP 113/55
[2019-10-25] MEDS: ENOXAPARIN 40 MG/0.4 ML (LOVENOX) SYR SC SCH (17:43)
[2019-10-25] MEDS: SIMvastatin 10 MG (ZOCOR) TAB PO SCH (20:58)
[2019-10-26 05:01] VITALS: BP 108/53
[2019-10-26] MEDS: ACETAMINOPHEN 325 MG TABLET PO SCH ×3 (05:28→18:47)
[2019-10-26 05:50] LABS: BASOPHILS # (AUTO) 0.1 10^3/uL (0.0-0.1); BASOPHILS % (AUTO) 1 % (0-10); EOSINOPHILS # (AUTO) 0.9 10^3/uL (0.0-0.3); EOSINOPHILS % (AUTO) 10 % (0-10); HEMATOCRIT 35 % (35-52); HEMOGLOBIN 11.3 G/DL (11.5-16.0); LYMPHOCYTES # (AUTO) 2.6 X 10^3 (1.0-4.0); LYMPHOCYTES % (AUTO) 28 % (12-44); MEAN CORPUSCULAR HEMOGLOBIN 33 PG (25-34); MEAN CORPUSCULAR HGB CONC 32 G/DL (32-36); MEAN CORPUSCULAR VOLUME 101 FL (80-99); MONOCYTES # (AUTO) 0.9 X 10^3 (0.0-1.0); MONOCYTES % (AUTO) 10 % (0-12); NEUTROPHILS # (AUTO) 4.7 X 10^3 (1.8-7.8); NEUTROPHILS % (AUTO) 51 % (42-75); PLATELET COUNT 455 10^3/uL (130-400); WHITE BLOOD COUNT 9.2 10^3/uL (4.3-11.0)
[2019-10-26 06:08] LABS: ALBUMIN 3.5 GM/DL (3.2-4.5); POTASSIUM 4.4 MMOL/L (3.6-5.0)
[2019-10-26 06:09] LABS: CALCIUM 9.5 MG/DL (8.5-10.1)
[2019-10-26 06:10] LABS: TOTAL PROTEIN 6.8 GM/DL (6.4-8.2)
[2019-10-26 06:12] LABS: BILIRUBIN,TOTAL 0.4 MG/DL (0.1-1.0)
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
[2019-10-26 06:42] LABS: ANISOCYTOSIS SLIGHT; EOSINOPHILS % (MANUAL) 13 %; HYPOCHROMASIA SLIGHT; LYMPHOCYTES % (MANUAL) 28 %; MONOCYTES % (MANUAL) 7 %; NEUTROPHILS % (MANUAL) 50 %; PLATELET CLUMPS SLIGHT; REACTIVE LYMPHOCYTES 2 %
--- NOTE | 2019-10-26 08:58 | Physical Therapy Daily Note ---
PT Daily Note-Current Subjective Pt in husbands room (225) upon arrival and agrees to PT. Pt states pain in R back at 5/10. Pain Numeric Pain Scale: 5-Moderate Pain Location: Right Location Body Site: Back Pain Description: Ache Mental Status Patient Orientation: Person, Place, Time, Situation Transfers SCALE: Activities may be completed with or without assistive devices. 8-Psnkcvskmm-biizybi completes the activity by him/herself with no assistance from a helper. 5-Set-up or Clean-up Assistance-helper sets up or cleans up; patient completes activity. [place] assists only prior to or following the activity. 4-Supervision or Touching Assistance-helper provides verbal cues and/or touching/steadying and/or contact guard assistance as patient completes activity. Assistance may be provided throughout the activity or intermittently. 3-Partial/Moderate Assistance-helper does LESS THAN HALF the effort. [place] li fts, holds or supports trunk or limbs, but provides less than half the effort. 2-Substantial/Maximal Assistance-helper does MORE THAN HALF the effort. [place] lifts or holds trunk or limbs and provides more than half the effort. 5-Nepooaguj-zvfiqn does ALL the effort. Patient does none of the effort to complete the activity. Or, the assistance of 2 or more helpers is required for the patient to complete the activity. If activity was not attempted, code reason: 7-Patient Refused. 9-Not Applicable-not attempted and the patient did not perform the activity before the current illness, exacerbation or injury. 10-Not Attempted due to Environmental Limitations-(lack of equipment, weather restraints, etc.). 88-Not Attempted due to Medical Conditions or Safety Concerns. Sit to Stand (QC): 6 Chair/Pvw-aa-Cheyj Xfer(QC): 6 Weight Bearing Right Lower Extremity: Right Full Weight Bearing Left Lower Extremity: Left Full Weight Bearing Gait Training Does the Patient Walk?: Yes Distance: 600 Walk 10 feet (QC): 6 Walk 50 ft with 2 Turns(QC): 6 Walk 150 ft (QC): 6 Gait Persons Needed: 1 Gait Assistive Device: FWW pt. up ad sophie , observed safe Wheelchair Training Does the Pt Use a Wheelchair?: No Exercises Standing: Hip Abduction, Hamstring curls, Heel/toe raises, Marching, Mini squats Standing Reps: 1 Each exercise for 2 minutes NuStep Minutes: 15 NuStep Workload: 5 Treatments Pt amb in hallway prior to using NuStep in gym. Pt performs standing exercises at // bars and amb back to pt room. Pt left with all needs met, call light in hand. Assessment Current Status: Good Progress Pt required few rest breaks with standing exercises and has no LOB with amb PT Short Term Goals Short Term Goals Time Frame: Oct 23, 2019 Sit to lyin Sit to stand: 4 Walk 150 feet: 4 4 steps: 4 PT Swine Extension Field Specialist Goals Swine Extension Field Specialist Goals PT [facility] Goals Time Frame: Nov 04, 2019 Roll Left & Right (QC): 6 Sit to Lying (QC): 6 Lying-Sitting on Side/Bed(QC): 6 Sit to Stand (QC): 6 Chair/Euj-ft-Vpnbf Xfer(QC): 6 Toilet Transfer (QC): 6 Car Transfer (QC): 6 Does the Patient Walk: Yes Walk 10 feet (QC): 6 Walk 50ft with 2 Turns (QC): 6 Walk 150 ft (QC): 6 Walking 10ft on Uneven Surface: 5 1 Step (curb) (QC): 6 4 Steps (QC): 5 12 Steps (QC): 5 Picking up an Object (QC): 88 (bending restrictions) Does the Pt use WC or Scooter?: No Wheel 50 feet with 2 turns (QC: 9 Wheel 150 feet: 9 PT Plan Treatment/Plan Treatment Plan: Continue Plan of Care Treatment Plan: Bed Mobility, Education, Functional Activity Kanwal, Functional Strength, Group Therapy, Gait, Safety, Therapeutic Exercise, Transfers Treatment Duration: Nov 04, 2019 Frequency: At least 5 of 7 days/Wk (IRF) Estimated Hrs Per Day: 1.5 hours per day Patient and/or Family Agrees t: Yes Safety Risks/Education Patient Education: Gait Training, Correct Positioning, Safety Issues Teaching Recipient: Patient Teaching Methods: Demonstration, Discussion Response to Teaching: Verbalize Understanding, Return Demonstration Time/GCodes Time In: 800 Time Out: 900 Total Billed Treatment Time: 60 Total Billed Treatment 1, Ex x2 (30m), GT x2 (30m) ALBA SNELL CASHIER [employer] Oct 26, 2019 08:58
[2019-10-26 09:50] VITALS: BP 129/62
[2019-10-26] MEDS: ASPIRIN E.C. 81 MG (ECOTRIN) TAB PO SCH (09:57)
[2019-10-26] MEDS: MONTELUKAST 10 MG (SINGULAIR) TAB PO SCH (09:57)
[2019-10-26] MEDS: PARoxetine 10 MG (PAXIL) TAB PO SCH (09:57)
[2019-10-26] MEDS: CELECOXIB 100 MG (CeleBREX) CAP PO SCH ×2 (09:57→21:30)
[2019-10-26] MEDS: GABAPENTIN 300 MG (NEURONTIN) CAP PO SCH ×2 (09:57→21:30)
[2019-10-26] MEDS: SENNA W/DOCUSATE (SENOKOT S) TABLET PO SCH ×2 (09:58→20:20)
[2019-10-26] MEDS: DOCUSATE SODIUM 100 MG (COLACE) CAP PO SCH ×2 (09:58→20:19)
[2019-10-26] MEDS: PANTOPRAZOLE 20 MG TABLET (PROTONIX) PO SCH (09:58)
[2019-10-26] MEDS: polyethylene glycoL POWDER 17 GM (MIRALAX) PACK PO SCH ×2 (09:58→20:20)
[2019-10-26] MEDS: lisINopril 5 MG (PRINIVIL) TABLET PO SCH (10:01)
[2019-10-26] MEDS: meTOproloL SUCCINATE 50 MG (TOPROL XL) TAB PO SCH (10:01)
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
--- NOTE | 2019-10-26 14:04 | Physical Therapy Daily Note ---
PT Daily Note-Current Subjective Pt in bathroom upon arrival and agrees to tx. Pt had no c/o pain. Pain Location: No Pain Reported Mental Status Patient Orientation: Person, Place, Time, Situation Transfers SCALE: Activities may be completed with or without assistive devices. 0-Rkiguxyjjl-yammmmq completes the activity by him/herself with no assistance from a helper. 5-Set-up or Clean-up Assistance-helper sets up or cleans up; patient completes activity. [place] assists only prior to or following the activity. 4-Supervision or Touching Assistance-helper provides verbal cues and/or touching/steadying and/or contact guard assistance as patient completes activity. Assistance may be provided throughout the activity or intermittently. 3-Partial/Moderate Assistance-helper does LESS THAN HALF the effort. [place] lifts, holds or supports trunk or limbs, but provides less than half the effort. 2-Substantial/Maximal Assistance-helper does MORE THAN HALF the effort. [place] lifts or holds trunk or limbs and provides more than half the effort. 0-Tuwcpxmkh-pdctzu does ALL the effort. Patient does none of the effort to complete the activity. Or, the assistance of 2 or more helpers is required for the patient to complete the activity. If activity was not attempted, code reason: 7-Patient Refused. 9-Not Applicable-not attempted and the patient did not perform the activity before the current illness, exacerbation or injury. 10-Not Attempted due to Environmental Limitations-(lack of equipment, weather restraints, etc.). 88-Not Attempted due to Medical Conditions or Safety Concerns. Sit to Stand (QC): 6 Toilet Transfer (QC): 6 Weight Bearing Right Lower Extremity: Right Full Weight Bearing Left Lower Extremity: Left Full Weight Bearing Gait Training Does the Patient Walk?: Yes Distance: 600 Walk 10 feet (QC): 6 Walk 50 ft with 2 Turns(QC): 6 Walk 150 ft (QC): 6 Walking 10ft/uneven surface-QC: 6 Gait Persons Needed: 0 Gait Assistive Device: FWW Pt amb with steady, even stride length and no LOB. Pt took elevator to downstairs lobby area on carpeted floors, in garden down 2 step/stairs, and a scended the ramp all SBA. Pt amb around the garden area approx 175 ft x2. Pt amb down and up ramp in downstairs area all with good safe technique Stair Training Stair Training: Handrails/: 2 handrails #of Steps: 2 1 Step (curb) (QC): 6 Exercises Seated Therapy Exercises: Ankle pumps, Long arc quads, Hip flexion, Hip abd/add Seated Reps: 10 Treatments Pt amb to elevators, used elevators Indep to go down to lobby. Pt amb on carpet and in garden. Pt took seated rest break in lobby and performed seated exercises. Pt amb to other ramp in area and returned to IRU. Pt returned to room and was left with all needs met. Assessment Current Status: Excellent Progress Pt had no LOB during amb and is overall improving strength and endurance and independence PT Short Term Goals Short Term Goals Time Frame: Oct 23, 2019 Sit to lyin Sit to stand: 4 Walk 150 feet: 4 4 steps: 4 PT Group Home Goals Aircraft Systems Repairer Goals PT Aircraft Systems Repairer Goals Time Frame: Nov 04, 2019 Roll Left & Right (QC): 6 Sit to Lying (QC): 6 Lying-Sitting on Side/Bed(QC): 6 Sit to Stand (QC): 6 Chair/Bcq-rk-Errts Xfer(QC): 6 Toilet Transfer (QC): 6 Car Transfer (QC): 6 Does the Patient Walk: Yes Walk 10 feet (QC): 6 Walk 50ft with 2 Turns (QC): 6 Walk 150 ft (QC): 6 Walking 10ft on Uneven Surface: 5 1 Step (curb) (QC): 6 4 Steps (QC): 5 12 Steps (QC): 5 Picking up an Object (QC): 88 (bending restrictions) Does the Pt use WC or Scooter?: No Wheel 50 feet with 2 turns (QC: 9 Wheel 150 feet: 9 PT Plan Treatment/Plan Treatment Plan: Continue Plan of Care Treatment Plan: Bed Mobility, Education, Functional Activity Kanwal, Functional Strength, Group Therapy, Gait, Safety, Therapeutic Exercise, Transfers Treatment Duration: Nov 04, 2019 Frequency: At least 5 of 7 days/Wk (IRF) Estimated Hrs Per Day: 1.5 hours per day Patient and/or Family Agrees t: Yes Safety Risks/Education Patient Education: Gait Training, Steps, Correct Positioning, Safety Issues Teaching Recipient: Patient Teaching Methods: Demonstration, Discussion Response to Teaching: Verbalize Understanding, Return Demonstration Time/GCodes Time In: 1330 Time Out: 1400 Total Billed Treatment Time: 30 Total Billed Treatment 1, GT (15m), Ex (15m) ALBA SNELL IGNITER CAPPER Oct 26, 2019 14:03
--- NOTE | 2019-10-26 15:18 | Occupational Ther Daily Note ---
OT Current Status-Daily Note Subjective Pt. in reclining chair when OT entered room. Pt. reported that she has not had any pain. Mental Status/Objective Patient Orientation: Person, Place, Time, Situation ADL-Treatment Therapy Code Descriptions/Definitions Functional [place] Measure: 0=Not Assessed/NA 4=Minimal Assistance 1=Total Assistance 5=Supervision or Setup 2=Maximal Assistance 6=Modified [place] 3=Moderate Assistance 7=Complete IndependenceSCALE: Activities may be completed with or without assistive devices. 2-Kspalymxlp-gmhpdtl completes the activity by him/herself with no assistance from a helper. 5-Set-up or Clean-up Assistance-helper sets up or cleans up; patient completes activity. [place] assists only prior to or following the activity. 4-Supervision or Touching Assistance-helper provides verbal cues and/or touching/steadying and/or contact guard assistance as patient completes activity. Assistance may be provided throughout the activity or intermittently. 3-Partial/Moderate Assistance-helper does LESS THAN HALF the effort. [place] lifts, holds or supports trunk or limbs, but provides less than half the effort. 2-Substantial/Maximal Assistance-helper does MORE THAN HALF the effort. [place] lifts or holds trunk or limbs and provides more than half the effort. 5-Cljhpvzet-clrpxd does ALL the effort. Patient does none of the effort to complete the activity. Or, the assistance of 2 or more helpers is required for the patient to complete the activity. If activity was not attempted, code reason: 7-Patient Refused. 9-Not Applicable-not attempted and the patient did not perform the activity before the current illness, exacerbation or injury. 10-Not Attempted due to Environmental Limitations-(lack of equipment, weather restraints, etc.). 88-Not Attempted due to Medical Conditions or Safety Concerns. Oral Hygiene (QC): 6 Shower/Bathe Self (QC): 5 Upper Body Dressing (QC): 4 (CGA for brace) Lower Body Dressing (QC): 6 On/Off Footwear: 6 Toileting Hygiene (QC): 6 Toilet Transfer (QC): 6 Pt. and OT discussed discharge and things that need addressed prior to discharge. When completing dressing, pt. encouraged to doff/don cervical/back brace with mirror and required CGA for donning the first time. Pt. washed off with wipes with set up assistance. She donned all clothing independently. Pt. a mbulated to bathroom using walker independently. Once in the bathroom, pt. independently brushed teeth. Pt. requested changing her own bandage as she will have to change it herself while at home. Pt. able to do so with min A and extra time. Pt. in chair with call light and phones with all needs met when OT left the room. Education OT Patient Education: Correct positioning, Energy conservation, Exercise program, Instructions don/doff splint/brace, Modified ADL techniques, Progress toward Goal/Update tx plan, Purpose of tx/functional activities, Reviewed precautions, Rehab process, Transfer techniques Teaching Recipient: Patient Teaching Methods: Demonstration, Discussion Response to Teaching: Verbalize Understanding, Return Demonstration OT Short Term Goals Short Term Goals Time Frame: Oct 22, 2019 Eatin Oral hygiene: 4 (SBA) Toileting hygiene: 4 (SBA) Shower/bathe self: 3 (Min assist) Upper body dressin (SBA) Lower body dressin (SBA) Putting on/taking off footwear: 4 (SBA) OT Jail Goals Jail Goals Time Frame: Oct 29, 2019 Eating (QC): 6 Oral Hygiene (QC): 6 Toileting Hygiene (QC): 6 Shower/Bathe Self (QC): 5 Upper Body Dressing (QC): 6 Lower Body Dressing (QC): 6 On/Off Footwear (QC): 6 Additional Goals: 1-Demonstrate ADL Tasks, 2-Verbalize Understanding, 3- ImproveStrength/[place] 1=Demonstrate adherence to instructed precautions during ADL tasks. 2=Patient will verbalize/demonstrate understanding of assistive devices/modifications for ADL. 3=Patient will improve strength/tolerance for activity to enable patient to perform ADL's. OT Education/Plan Problem List/Assessment Assessment: Decreased Activ Tolerance, Decreased UE Strength Discharge Recommendations Plan/Recommendations: Continue POC Therapy Discharge Recommendati: Home & Family, Post Acute OT Equpiment Recommendations-D/C: Coal Handler, Bedside Commode Treatment Plan/Plan of Care Treatment,Training & Education: Yes Patient would benefit from OT for education, treatment and training to promote independence in ADL's, mobility, safety and/or upper extremity function for ADL's. Plan of Care: ADL Retraining, Functional Mobility, Group Exercise/Act as Ind, UE Funct Exercise/Act Treatment Duration: Oct 29, 2019 Frequency: At least 5 of 7 days/Wk (IRF) Estimated Hrs Per Day: 1.5 hours per day Agreement: Yes Rehab Potential: Good Time/GCodes Start Time: 09:00 Stop Time: 10:00 Total Time Billed (hr/min): 60 Billed Treatment Time 1, ADL 4 YASMINE DAILY OT Oct 26, 2019 15:18
--- NOTE | 2019-10-26 15:26 | Occupational Ther Daily Note ---
OT Current Status-Daily Note Subjective Pt. in chair finishing lunch when OT entered room. Pt. reported that she has not experienced any pain. Mental Status/Objective Patient Orientation: Person, Place, Time, Situation ADL-Treatment Therapy Code Descriptions/Definitions Functional [place] Measure: 0=Not Assessed/NA 4=Minimal Assistance 1=Total Assistance 5=Supervision or Setup 2=Maximal Assistance 6=Modified [place] 3=Moderate Assistance 7=Complete IndependenceSCALE: Activities may be completed with or without assistive devices. 3-Wopbljvizw-qunyqkz completes the activity by him/herself with no assistance from a helper. 5-Set-up or Clean-up Assistance-helper sets up or cleans up; patient completes activity. [place] assists only prior to or following the activity. 4-Supervision or Touching Assistance-helper provides verbal cues and/or touching/steadying and/or contact guard assistance as patient completes activity. Assistance may be provided throughout the activity or intermittently. 3-Partial/Moderate Assistance-helper does LESS THAN HALF the effort. [place] lifts, holds or supports trunk or limbs, but provides less than half the effort. 2-Substantial/Maximal Assistance-helper does MORE THAN HALF the effort. [place] lifts or holds trunk or limbs and provides more than half the effort. 6-Itgxtwbqy-rooojq does ALL the effort. Patient does none of the effort to complete the activity. Or, the assistance of 2 or more helpers is required for the patient to complete the activity. If activity was not attempted, code reason: 7-Patient Refused. 9-Not Applicable-not attempted and the patient did not perform the activity before the current illness, exacerbation or injury. 10-Not Attempted due to Environmental Limitations-(lack of equipment, weather restraints, etc.). 88-Not Attempted due to Medical Conditions or Safety Concerns. Pt. requested washing her laundry today. She independently collected clothing items from all over her room into a bag using walker. OT carried bag in order for pt. to follow back precautions. Pt. ambulated to laundry room with walker independently. In laundry room, pt. independent in putting laundry into washer. Pt. educated on energy conservation techniques and strategies to maintain precautions while completing laundry. Using walker, pt. ambulated to gym to complete a 15 minute arm bessy activity to increase BUE ROM and overall activity tolerance for daily tasks. After activity, pt. ambulated back to room with walker and was in reclining chair when OT left room. All needs met. Education OT Patient Education: Correct positioning, Energy conservation, Exercise program, Modified ADL techniques, Progress toward Goal/Update tx plan, Purpose of tx/functional activities, Reviewed precautions, Rehab process, Transfer techniques Teaching Recipient: Patient Teaching Methods: Demonstration, Discussion Response to Teaching: Verbalize Understanding, Return Demonstration OT Short Term Goals Short Term Goals Time Frame: Oct 22, 2019 Eatin Oral hygiene: 4 (SBA) Toileting hygiene: 4 (SBA) Shower/bathe self: 3 (Min assist) Upper body dressin (SBA) Lower body dressin (SBA) Putting on/taking off footwear: 4 (SBA) OT Halfway Goals Cabinetmaker Supervisor Goals Time Frame: Oct 29, 2019 Eating (QC): 6 Oral Hygiene (QC): 6 Toileting Hygiene (QC): 6 Shower/Bathe Self (QC): 5 Upper Body Dressing (QC): 6 Lower Body Dressing (QC): 6 On/Off Footwear (QC): 6 Additional Goals: 1-Demonstrate ADL Tasks, 2-Verbalize Understanding, 3-ImproveStrength/[place] 1=Demonstrate adherence to instructed precautions during ADL tasks. 2=Patient will verbalize/demonstrate understanding of assistive devices/modifications for ADL. 3=Patient will improve strength/tolerance for activity to enable patient to per form ADL's. OT Education/Plan Problem List/Assessment Assessment: Decreased Activ Tolerance, Decreased UE Strength, Restricted Funct UE ROM Discharge Recommendations Plan/Recommendations: Continue POC Therapy Discharge Recommendati: Home & Family, Post Acute OT Equpiment Recommendations-D/C: Walker Bag or Basket Treatment Plan/Plan of Care Treatment,Training & Education: Yes Patient would benefit from OT for education, treatment and training to promote independence in ADL's, mobility, safety and/or upper extremity function for ADL's. Plan of Care: ADL Retraining, Functional Mobility, Group Exercise/Act as Ind, UE Funct Exercise/Act Treatment Duration: Oct 29, 2019 Frequency: At least 5 of 7 days/Wk (IRF) Estimated Hrs Per Day: 1.5 hours per day Agreement: Yes Rehab Potential: Good Time/GCodes Start Time: 12:55 Stop Time: 13:25 Total Time Billed (hr/min): 30 Billed Treatment Time 1, ADL (15 minutes), EX (15 minutes) YASMINE DAILY OT Oct 26, 2019 15:26
[2019-10-26] MEDS: VALACYCLOVIR 500 MG TAB (VALTREX) PO SCH (16:41)
[2019-10-26 18:00] VITALS: BP 108/57
[2019-10-26] MEDS: ENOXAPARIN 40 MG/0.4 ML (LOVENOX) SYR SC SCH (18:47)
[2019-10-26] MEDS: SIMvastatin 10 MG (ZOCOR) TAB PO SCH (21:30)
[2019-10-26] MEDS: OXYBUTYNIN (DITROPAN) 5 MG TAB PO PRN (21:30)
[2019-10-27] MEDS: ACETAMINOPHEN 325 MG TABLET PO SCH ×4 (01:13→17:51)
[2019-10-27 06:00] VITALS: BP 93/51
[2019-10-27] MEDS: ASPIRIN E.C. 81 MG (ECOTRIN) TAB PO SCH (08:42)
[2019-10-27] MEDS: PANTOPRAZOLE 20 MG TABLET (PROTONIX) PO SCH (08:42)
[2019-10-27] MEDS: GABAPENTIN 300 MG (NEURONTIN) CAP PO SCH ×2 (08:42→20:27)
[2019-10-27] MEDS: MONTELUKAST 10 MG (SINGULAIR) TAB PO SCH (08:42)
[2019-10-27] MEDS: lisINopril 5 MG (PRINIVIL) TABLET PO SCH (08:42)
[2019-10-27] MEDS: PARoxetine 10 MG (PAXIL) TAB PO SCH (08:42)
[2019-10-27] MEDS: meTOproloL SUCCINATE 50 MG (TOPROL XL) TAB PO SCH (08:42)
[2019-10-27] MEDS: DOCUSATE SODIUM 100 MG (COLACE) CAP PO SCH ×2 (08:43→20:27)
[2019-10-27] MEDS: SENNA W/DOCUSATE (SENOKOT S) TABLET PO SCH ×2 (08:43→20:27)
[2019-10-27] MEDS: CELECOXIB 100 MG (CeleBREX) CAP PO SCH ×2 (08:43→20:26)
[2019-10-27] MEDS: polyethylene glycoL POWDER 17 GM (MIRALAX) PACK PO SCH ×2 (08:43→20:27)
[2019-10-27] MEDS: OXYBUTYNIN (DITROPAN) 5 MG TAB PO PRN ×2 (08:53→20:27)
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
--- NOTE | 2019-10-27 09:57 | Physical Therapy Daily Note ---
PT Daily Note-Current Subjective Pt in recliner and agrees to tx. Pt states pain in R back 4/10. Pain Numeric Pain Scale: 4 Location: Right Location Body Site: Back Pain Description: Ache Mental Status Patient Orientation: Person, Place, Time, Situation Attachments: Other-See Comments ([place] Back brace) Transfers SCALE: Activities may be completed with or without assistive devices. 2-Oczxocizbv-ctpxqgv completes the activity by him/herself with no assistance from a helper. 5-Set-up or Clean-up Assistance-helper sets up or cleans up; patient completes activity. [place] assists only prior to or following the activity. 4-Supervision or Touching Assistance-helper provides verbal cues and/or touching/steadying and/or contact guard assistance as patient completes activ ity. Assistance may be provided throughout the activity or intermittently. 3-Partial/Moderate Assistance-helper does LESS THAN HALF the effort. [place] lifts, holds or supports trunk or limbs, but provides less than half the effort. 2-Substantial/Maximal Assistance-helper does MORE THAN HALF the effort. [place] lifts or holds trunk or limbs and provides more than half the effort. 6-Igvqbgjfo-wjgygv does ALL the effort. Patient does none of the effort to complete the activity. Or, the assistance of 2 or more helpers is required for the patient to complete the activity. If activity was not attempted, code reason: 7-Patient Refused. 9-Not Applicable-not attempted and the patient did not perform the activity before the current illness, exacerbation or injury. 10-Not Attempted due to Environmental Limitations-(lack of equipment, weather restraints, etc.). 88-Not Attempted due to Medical Conditions or Safety Concerns. Roll Left & Right (QC): 6 Sit to Lying (QC): 6 Lying to Sitting/Side of Bed(Q: 6 Sit to Stand (QC): 6 Chair/Vfx-xg-Wvowz Xfer(QC): 6 Toilet Transfer (QC): 6 Car Transfer (QC): 6 Weight Bearing Right Lower Extremity: Right Full Weight Bearing Left Lower Extremity: Left Full Weight Bearing Gait Training Does the Patient Walk?: Yes Distance: 300 Walk 10 feet (QC): 6 Walk 50 ft with 2 Turns(QC): 6 Walk 150 ft (QC): 6 Walking 10ft/uneven surface-QC: 6 Gait Persons Needed: 0 Gait Assistive Device: FWW Pt amb forward, backward, side to side, and in fig 8 pattern with no LOB. Wheelchair Training Does the Pt Use a Wheelchair?: No Stair Training Stair Training: Handrails/: 2 handrails #of Steps: 12 1 Step (curb) (QC): 6 4 Steps (QC): 6 12 Steps (QC): 6 Stairs: Pattern: Step to Balance Picking up an Object (QC): 6 Exercises NuStep Minutes: 15 NuStep Workload: 6 Treatments Pt performs bed mobility in room, performs car transfer, stairs, and picking up an object. Pt performs NuStep for 15 min followed by amb challenges in hallway. Pt practices places dishes away in kitchen area in top and bottom cabinets. Pt returned to room and used restroom. Pt left in recliner with all needs met, call light in hand. Assessment Current Status: Excellent Progress Pt has increased strength, endurance, safety, and balance. PT Short Term Goals Short Term Goals Time Frame: Oct 23, 2019 Sit to lyin Sit to stand: 4 Walk 150 feet: 4 4 steps: 4 PT [facility] Goals Delivery Merchandiser Goals PT Delivery Merchandiser Goals Time Frame: Nov 04, 2019 Roll Left & Right (QC): 6 Sit to Lying (QC): 6 Lying-Sitting on Side/Bed(QC): 6 Sit to Stand (QC): 6 Chair/Qdj-oc-Osrii Xfer(QC): 6 Toilet Transfer (QC): 6 Car Transfer (QC): 6 Does the Patient Walk: Yes Walk 10 feet (QC): 6 Walk 50ft with 2 Turns (QC): 6 Walk 150 ft (QC): 6 Walking 10ft on Uneven Surface: 5 1 Step (curb) (QC): 6 4 Steps (QC): 5 12 Steps (QC): 5 Picking up an Object (QC): 88 (bending restrictions) Does the Pt use WC or Scooter?: No Wheel 50 feet with 2 turns (QC: 9 Wheel 150 feet: 9 PT Plan Treatment/Plan Treatment Plan: Continue Plan of Care Treatment Plan: Bed Mobility, Education, Functional Activity Kanwal, Functional Strength, Group Therapy, Gait, Safety, Therapeutic Exercise, Transfers Treatment Duration: Nov 04, 2019 Frequency: At least 5 of 7 days/Wk (IRF) Estimated Hrs Per Day: 1.5 hours per day Patient and/or Family Agrees t: Yes Safety Risks/Education Patient Education: Gait Training, Transfer Techniques, Steps, Correct Positioning, Safety Issues Teaching Recipient: Patient Teaching Methods: Demonstration, Discussion Response to Teaching: Verbalize Understanding, Return Demonstration Time/GCodes Time In: 900 Time Out: 1000 Total Billed Treatment Time: 60 Total Billed Treatment 1, FA x3 (45m), Ex (15m) MARLYS AGUIRRE PTA Oct 27, 2019 09:56
--- NOTE | 2019-10-27 11:30 | NUR ---
PT CHANGES DRESSING WITH RN STANDBY NEEDED. PT VOICES FEELING CONFIDENT CHANGING DRESSINGS WHEN SHE GOES HOME TOMORROW, SHE IS A HOME HEALTH NURSE. WOUNDS APPEAR DEEP AND WIDE, WITH LARGE HEMATOMA UNDER OPENINGS. LARGEST IS 2 X 2CM. SMALLEST IS 1 X 1CM. SEROSANGUINOUS FLUID ONLY WHEN FLUSHED WITH 10CC NS. UNABLE TO REMOVE HEMATOMA WITH FLUSHING. NOTIFIED DR PHILIP. AFTER ASSESSMENT BY DR, HEMATOMA EVACUATED, SEE SURGICAL NOTES. PT TOLERATES WITH MINOR PAIN, SCHEDULED TYLENOL GIVEN PO POST PROCEDURE. NEW ORDERS FOR WET-TO-DRY DRESSING BID, PT TO HAVE HHC WHEN GOING HOME TOMORROW AND 1 WEEK FOLLOWUP APPT TO SEE DR PHILIP IN CLINIC ON 11/03/2019 @ 0859. DISCHARGE INSTRUCTS UPDATED WITH APPT. INFORMATION.
--- NOTE | 2019-10-27 11:55 | Physical Therapy Daily Note ---
PT Daily Note-Current Subjective Pt finished with OT in gym upon arrival and agrees to PT. Mental Status Patient Orientation: Person, Place, Time, Situation Transfers SCALE: Activities may be completed with or without assistive devices. 6-Fufeoxwzew-fokilfb completes the activity by him/herself with no assistance from a helper. 5-Set-up or Clean-up Assistance-helper sets up or cleans up; patient completes activity. [place] assists only prior to or following the activity. 4-Supervision or Touching Assistance-helper provides verbal cues and/or touching/steadying and/or contact guard assistance as patient completes activity. Assistance may be provided throughout the activity or intermittently. 3-Partial/Moderate Assistance-helper does LESS THAN HALF the effort. [place] lifts, holds or supports trunk or limbs, but provides less than half the effort. 2-Substantial/Maximal Assistance-helper does MORE THAN HALF the effort. [place] lifts or holds trunk or limbs and provides more than half the effort. 6-Anjsvxggs-kduoru does ALL the effort. Patient does none of the effort to complete the activity. Or, the assistance of 2 or more helpers is required for the patient to complete the activity. If activity was not attempted, code reason: 7-Patient Refused. 9-Not Applicable-not attempted and the patient did not perform the activity before the current illness, exacerbation or injury. 10-Not Attempted due to Environmental Limitations-(lack of equipment, weather restraints, etc.). 88-Not Attempted due to Medical Conditions or Safety Concerns. Sit to Stand (QC): 6 Weight Bearing Right Lower Extremity: Right Full Weight Bearing Left Lower Extremity: Left Full Weight Bearing Gait Training Does the Patient Walk?: Yes Distance: 600 Pt amb around unit, takes elevator downstairs, amb in carpeted area, around garden 175' x2, ascends/descends 2 stairs and a ramp, and amb back through carpet, and up elevator to return to unit. Stair Training #of Steps: 2 1 Step (curb) (QC): 6 Exercises Seated Therapy Exercises: Ankle pumps, Long arc quads, Hip flexion, Glut set Seated Reps: 10 Treatments Pt amb around garden and carpeted floors with FWW. Pt takes seated rest break and performs seated exercises followed by returning back upstairs to unit. Assessment Current Status: Excellent Progress Pt increased endurance, strength, and balance PT Short Term Goals Short Term Goals Time Frame: Oct 23, 2019 Sit to lyin Sit to stand: 4 Walk 150 feet: 4 4 steps: 4 PT Associate Professor Of Psychology Goals Associate Professor Of Psychology Goals PT Associate Professor Of Psychology Goals Time Frame: Nov 04, 2019 Roll Left & Right (QC): 6 Sit to Lying (QC): 6 Lying-Sitting on Side/Bed(QC): 6 Sit to Stand (QC): 6 Chair/Rrv-rp-Wkgud Xfer(QC): 6 Toilet Transfer (QC): 6 Car Transfer (QC): 6 Does the Patient Walk: Yes Walk 10 feet (QC): 6 Walk 50ft with 2 Turns (QC): 6 Walk 150 ft (QC): 6 Walking 10ft on Uneven Surface: 5 1 Step (curb) (QC): 6 4 Steps (QC): 5 12 Steps (QC): 5 Picking up an Object (QC): 88 (bending restrictions) Does the Pt use WC or Scooter?: No Wheel 50 feet with 2 turns (QC: 9 Wheel 150 feet: 9 PT Plan Treatment/Plan Treatment Plan: Continue Plan of Care Treatment Plan: Bed Mobility, Education, Functional Activity Kanwal, Functional Strength, Group Therapy, Gait, Safety, Therapeutic Exercise, Transfers Treatment Duration: Nov 04, 2019 Frequency: At least 5 of 7 days/Wk (IRF) Estimated Hrs Per Day: 1.5 hours per day Patient and/or Family Agrees t: Yes Safety Risks/Education Patient Education: Gait Training, Transfer Techniques, Steps, Correct Positioning, Safety Issues Teaching Recipient: Patient Teaching Methods: Demonstration, Discussion Response to Teaching: Verbalize Understanding, Return Demonstration Time/GCodes Time In: 1130 Time Out: 1200 Total Billed Treatment Time: 30 Total Billed Treatment 1, FA x2 (30m) MARLYS AGUIRRE GROMMET WORKER Oct 27, 2019 11:55
--- NOTE | 2019-10-27 12:04 | Occupational Ther Daily Note ---
OT Current Status-Daily Note Subjective Pt. up in reclining chair when OT entered room. Pt. reported that she has not been having any pain. Mental Status/Objective Patient Orientation: Person, Place, Time, Situation ADL-Treatment Therapy Code Descriptions/Definitions Functional [place] Measure: 0=Not Assessed/NA 4=Minimal Assistance 1=Total Assistance 5=Supervision or Setup 2=Maximal Assistance 6=Modified [place] 3=Moderate Assistance 7=Complete IndependenceSCALE: Activities may be completed with or without assistive devices. 5-Oczodidbpa-hpssvwv completes the activity by him/herself with no assistance from a helper. 5-Set-up or Clean-up Assistance-helper sets up or cleans up; patient completes activity. [place] assists only prior to or following the activity. 4-Supervision or Touching Assistance-helper provides verbal cues and/or touching/steadying and/or contact guard assistance as patient completes activity. Assistance may be provided throughout the activity or intermittently. 3-Partial/Moderate Assistance-helper does LESS THAN HALF the effort. [place] lifts, holds or supports trunk or limbs, but provides less than half the effort. 2-Substantial/Maximal Assistance-helper does MORE THAN HALF the effort. [place] lifts or holds trunk or limbs and provides more than half the effort. 4-Wjulskrab-huntsu does ALL the effort. Patient does none of the effort to complete the activity. Or, the assistance of 2 or more helpers is required for the patient to complete the activity. If activity was not attempted, code reason: 7-Patient Refused. 9-Not Applicable-not attempted and the patient did not perform the activity before the current illness, exacerbation or injury. 10-Not Attempted due to Environmental Limitations-(lack of equipment, weather restraints, etc.). 88-Not Attempted due to Medical Conditions or Safety Concerns. Eating (QC): 6 Oral Hygiene (QC): 6 Shower/Bathe Self (QC): 6 Upper Body Dressing (QC): 6 Lower Body Dressing (QC): 6 On/Off Footwear: 6 Toileting Hygiene (QC): 6 Toilet Transfer (QC): 6 Pt. up in reclining chair when OT entered. Pt. reported that she is worried that she will not be able to stand long enough at home to complete daily tasks. Pt. tolerated 45 minutes of standing while completing table top activity with one rest break. Pt. then ambulated to bathroom with walker. Once in bathroom, pt. independent in bathing with wipes, as well as, doffing/donning brace, shirt, pants, and slipper socks while seated in chair in front of mirror. Pt. independently completed grooming and oral hygiene tasks while standing at sink. Pt. then ambulated back to reclining chair using walker. Pt. removed bandages on L hand and nursing was consulted to look at wounds. Once nursing observed wounds, pt. was able to clean and redress L hand independently. Pt. then ambulated around floor independently. PT starting with pt after OT session. All needs met. Education OT Patient Education: Correct positioning, Energy conservation, Modified ADL techniques, Progress toward Goal/Update tx plan, Purpose of tx/functional activities, Reviewed precautions, Rehab process, Transfer techniques Teaching Recipient: Patient Teaching Methods: Demonstration, Discussion Response to Teaching: Verbalize Understanding, Return Demonstration OT Short Term Goals Short Term Goals Time Frame: Oct 22, 2019 Eatin Oral hygiene: 4 (SBA) Toileting hygiene: 4 (SBA) Shower/bathe self: 3 (Min assist) Upper body dressin (SBA) Lower body dressin (SBA) Putting on/taking off footwear: 4 (SBA) OT Product Lister Goals [facility] Goals Time Frame: Oct 29, 2019 Eating (QC): 6 Oral Hygiene (QC): 6 Toileting Hygiene (QC): 6 Shower/Bathe Self (QC): 5 Upper Body Dressing (QC): 6 Lower Body Dressing (QC): 6 On/Off Footwear (QC): 6 Additional Goals: 1-Demonstrate ADL Tasks, 2-Verbalize Understanding, 3-ImproveStrength/Kanwal 1=Demonstrate adherence to instructed precautions during ADL tasks. 2=Patient will verbalize/demonstrate understanding of assistive devices/modifications for ADL. 3=Patient will improve strength/tolerance for activity to enable patient to perform ADL's. OT Education/Plan Problem List/Assessment Assessment: Decreased Activ Tolerance, Decreased UE Strength, Restricted Funct UE ROM Discharge Recommendations Plan/Recommendations: Continue POC Therapy Discharge Recommendati: Home & Family Equpiment Recommendations-D/C: Supervisor Soakers Treatment Plan/Plan of Care Treatment,Training & Education: Yes Patient would benefit from OT for education, treatment and training to promote independence in ADL's, mobility, safety and/or upper extremity function for ADL's. Plan of Care: ADL Retraining, Functional Mobility, Group Exercise/Act as Ind, UE Funct Exercise/Act Treatment Duration: Oct 29, 2019 Frequency: At least 5 of 7 days/Wk (IRF) Estimated Hrs Per Day: 1.5 hours per day Agreement: Yes Rehab Potential: Good Time/GCodes Start Time: 10:00 Stop Time: 11:30 Total Time Billed (hr/min): 90 Billed Treatment Time 1, FA 3 (45 minutes), ADL 2 (30 minutes), EX (15 minutes) YASMINE DAILY OT Oct 27, 2019 12:03
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
--- NOTE | 2019-10-27 12:51 | NUR ---
CM/SS DISCHARGE PLANNING Patient discharge planned for tomorrow in conjunction with her neurosurgeon followup appointment in [place]. She indicates her family will pick her up around 1130 for the [address] Jasapl Esteban. Tentatively, she intends to stay with her daughter tomorrow evening and return to her home Saturday and the plan is for [facility] services to begin that date. [facility]: Coordinated with patient choice agency, [facility], in [place] for service from [place], [place] office to begin Saturday10/30/19: RN/PT/OT DME: FWW to be ordered through patient choice agency, [facility] and delivered this afternoon or early a.m. Patient desires a singeing torch operator and understands this is not a covered item for insurance purposes. She stated she would get one through [facility] or another similar source rather than through DME. Physician updated of discharge needs. Communication Board current. Finalize in a.m.
[2019-10-27] MEDS: ENOXAPARIN 40 MG/0.4 ML (LOVENOX) SYR SC SCH (18:07)
[2019-10-27 18:11] VITALS: BP 127/59
[2019-10-27] MEDS ORDERED: CELE-63 PO (20:22)
[2019-10-27] MEDS ORDERED: OXYC5TAB96 PO (20:22)
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
[2019-10-27] MEDS: SIMvastatin 10 MG (ZOCOR) TAB PO SCH (20:27)
[2019-10-28] MEDS: ACETAMINOPHEN 325 MG TABLET PO SCH ×2 (01:15→06:03)
[2019-10-28 06:00] VITALS: BP 122/59
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
[2019-10-28] MEDS: PANTOPRAZOLE 20 MG TABLET (PROTONIX) PO SCH (08:58)
[2019-10-28] MEDS: PARoxetine 10 MG (PAXIL) TAB PO SCH (08:58)
[2019-10-28] MEDS: CELECOXIB 100 MG (CeleBREX) CAP PO SCH (08:58)
[2019-10-28] MEDS: MONTELUKAST 10 MG (SINGULAIR) TAB PO SCH (08:58)
[2019-10-28] MEDS: GABAPENTIN 300 MG (NEURONTIN) CAP PO SCH (08:58)
[2019-10-28] MEDS: ASPIRIN E.C. 81 MG (ECOTRIN) TAB PO SCH (08:58)
[2019-10-28 09:00] VITALS: BP 117/56
[2019-10-28] MEDS: lisINopril 5 MG (PRINIVIL) TABLET PO SCH (09:02)
[2019-10-28] MEDS: meTOproloL SUCCINATE 50 MG (TOPROL XL) TAB PO SCH (09:02)
[2019-10-28] MEDS: DOCUSATE SODIUM 100 MG (COLACE) CAP PO SCH (09:03)
[2019-10-28] MEDS: polyethylene glycoL POWDER 17 GM (MIRALAX) PACK PO SCH (09:03)
[2019-10-28] MEDS: SENNA W/DOCUSATE (SENOKOT S) TABLET PO SCH (09:03)
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
--- NOTE | 2019-10-28 11:09 | NUR ---
CM/SS DISCHARGE Patient discharged to home as planned. HHC: Finalized with [facility] in [place], confirmed receipt of discharge orders and instructions. They will start services Saturday. DME: Patient requested 4WW rather than FWW, coordinated with first available agency having one in stock, [facility]. Patient's daughter will picking tech this assistive device today, agency clarified understanding of all arrangements. IMM2 presented, signed, charted. Patient voice on intention to appeal, discharge has been planned over approx one week. Unit RN aware of all timelines regarding this discharge so that patient can attend a followup appointment in [place] with Dr. Esteban via family transport.
[2019-10-28 11:55] VITALS: BP 117/56
== END 2019-10-28 11:45 | disposition home health service (06) | DRG 561 ==
PROVIDERS: ADMIT Internal Medicine; ATTEND Internal Medicine
DX: S12.100D Unspecified displaced fracture of second cervical vertebra, subsequent encounter for fracture with routine healing (principal); S22.039D Unspecified fracture of third thoracic vertebra, subsequent encounter for fracture with routine healing; S22.049D Unspecified fracture of fourth thoracic vertebra, subsequent encounter for fracture with routine healing; S22.059D Unspecified fracture of T5-T6 vertebra, subsequent encounter for fracture with routine healing; S52.92XD Unspecified fracture of left forearm, subsequent encounter for closed fracture with routine healing; S22.43XD Multiple fractures of ribs, bilateral, subsequent encounter for fracture with routine healing; S22.20XD Unspecified fracture of sternum, subsequent encounter for fracture with routine healing; S27.321D Contusion of lung, unilateral, subsequent encounter; S60.222A Contusion of left hand, initial encounter; N32.89 Other specified disorders of bladder; I10 Essential (primary) hypertension; K21.9 Gastro-esophageal reflux disease without esophagitis; K44.9 Diaphragmatic hernia without obstruction or gangrene; D64.9 Anemia, unspecified; E78.5 Hyperlipidemia, unspecified; G43.909 Migraine, unspecified, not intractable, without status migrainosus; V43.52XD Car driver injured in collision with other type car in traffic accident, subsequent encounter
CPT/HCPCS: 36415; 80053; 85007; 85025; 85027